=== PATIENT | female | born 1945 | race Caucasian/White ===

== ENCOUNTER 2022-02-18 13:09 | Inpatient (IN) | payer OTHER, MEDICAID, SELFPAY ==
[2022-02-18] VITALS (19 sets, daily range): BP systolic 80–156; BP diastolic 41–129; PULSE 80–142; RESP 19–25; TEMP 35–39.9; O2SAT 80–99; BMI 38.4
--- NOTE | ~2022-02-18 | CT_ITS ---
EXAMINATION: CT HEAD WITHOUT CONTRAST CLINICAL INFORMATION: Change in mental status. Rule out bleed or stroke COMPARISON: None TECHNIQUE: Imaging was performed from the skull base to vertex without intravenous administration of contrast. This CT examination was performed using dose optimization techniques as appropriate, variously including the following: *Automated exposure control *Adjustment of mA and/or kV according to patient size (this includes techniques or standardized protocols for targeted exams where dose is matched to indication/reason for exam; i.e. extremities or head) *Use of iterative reconstruction technique Total exam dose length product: 747 mGy-cm FINDINGS: No intra or extra-axial fluid collection, hemorrhage, or mass. No ventriculomegaly. No midline shift or herniation. Basal cisterns are patent. Betts-white matter differentiation is maintained. Small focal areas of encephalomalacia in the right lateral frontal lobe, right parietal and occipital lobes. Small remote lacunar infarct in the right caudate head.. Proportional prominence of the ventricles and sulcal spaces is consistent with mild volume loss. Patchy periventricular and deep white matter hypoattenuation is consistent with mild small vessel ischemic changes. No calvarial fracture or soft tissue abnormality. The mastoid air cells and visualized portions of the paranasal sinuses are well aerated. 1 cm high density lateral right scalp nodule is noted, nonspecific. Correlate with exam. Bilateral proptosis noted. Endotracheal tube in place. CT/CT head/brain wo IV con IMPRESSION: 1. No intracranial hemorrhage or acute edematous territorial infarct. 2. 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
--- NOTE | ~2022-02-18 | CT_ITS ---
EXAMINATION: CT CHEST, ABDOMEN AND PELVIS WITHOUT CONTRAST CLINICAL INFORMATION: Shortness of breath with respiratory failure. History of pneumonia. Fever. Rule out infectious process COMPARISON: None TECHNIQUE: Multidetector volumetric imaging was performed from the thoracic inlet through the pubic symphysis. Sagittal and coronal reformatted images were obtained on the technologist's workstation. Axial MIP volume rendering provided. This CT examination was performed using dose optimization techniques as appropriate, variously including the following: *Automated exposure control *Adjustment of mA and/or kV according to patient size (this includes techniques or standardized protocols for targeted exams where dose is matched to indication/reason for exam; i.e. extremities or head) *Use of iterative reconstruction technique DLP: 2877 mGy-cm FINDINGS: CHEST: Lungs: Quality degraded by motion artifact. Large area of airspace consolidation in the left lower lobe with air bronchograms. Some volume loss in the right lower lung with atelectasis in the right middle and lower lobe. No suspicious appearing pulmonary nodule-Limited assessment. Endotracheal tube tip terminates approximately 2.7 cm above the ivet. Central airways clear. Mediastinum: Mild cardiomegaly. Trace pericardial fluid. Coronary calcifications present. Occlusion device in the left atrial appendage. Ectatic ascending thoracic aorta measuring up to 4 cm in diameter. Prominent central pulmonary trunk measuring 3.3 cm in diameter. Small mediastinal lymph nodes. Borderline to mildly enlarged subcarinal lymph nodes, presumably reactive. Pericardium/Pleura: Trace right pleural effusion. Chest Wall/Axilla: Unremarkable. ABDOMEN/PELVIS: Liver, Gallbladder, Biliary Tree: Liver appears mildly enlarged with the right lobe measuring 18.1 cm in length. No appreciable liver lesion. No biliary ductal dilation. Status post cholecystectomy. Multiple surgical clips in place. Pancreas: Unremarkable. Spleen: Normal size. Small calcified splenic granulomas. Adrenal Glands: Unremarkable. Kidneys and Ureters: Left renal atrophy. Bilateral benign-appearing renal cysts, largest left upper pole measuring 3.2 cm in size, largest on the right side parapelvic in the mid pole measuring 4.9 cm in size. No hydronephrosis. Bladder: Decompressed with Bryant catheter. Gastrointestinal Tract: The small and large bowel are unremarkable. The appendix is unremarkable. No ascites or free air. Abdominal Wall: Prior mesh ventral abdominal wall hernia repair. No hernia identified. Lymphovascular Structures: Lymph nodes: No lymphadenopathy. Vascular: Small 3.1 cm infrarenal abdominal aortic aneurysm. Extensive vascular calcifications. Pelvic Viscera: Status post hysterectomy. Indeterminate 1.9 x 1.4 cm soft tissue nodule adjacent to the anterior right aspect of the vaginal cuff and upper ureter adjacent to the base of the bladder on series 23 image 85. OSSEOUS STRUCTURES: Mild chronic height loss of L5. No acute fracture or suspicious osseous lesion. Mild multilevel degenerative disc disease. CT/CT abdomen pelvis wo IV con IMPRESSION: 1. Left lower lobe airspace consolidation consistent with pneumonia. 2. Right middle and right lower lobe atelectasis and trace right pleural effusion. 3. Mild subcarinal lymphadenopathy, likely reactive. 4. No acute intra-abdominal process. 5. Small 3.1 cm infrarenal abdominal aortic aneurysm. Consider follow-up CT in 2-3 years. 6. Additional ancillary findings, as described.
--- NOTE | ~2022-02-18 | XR_ITS ---
EXAMINATION: XR CHEST CLINICAL INFORMATION: Reintubation. COMPARISON: Chest radiograph dated from 02/18/2022. TECHNIQUE: Frontal view of the chest was obtained. FINDINGS: The endotracheal tube terminates at 3 cm above the ivet. The enteric tube terminates outside of the field of view. Unchanged cardiomegaly. A left-sided PICC line projects over the proximal SVC. Central vasculature engorgement, bibasilar airspace opacities and bilateral pleural effusions are not convincingly changed when compared to yesterday's examination. No significant osseous abnormalities. XR/XR chest 1V IMPRESSION: Endotracheal tube terminates at 3 cm above the ivet. Stable bibasilar airspace opacities and pleural effusions.
--- NOTE | ~2022-02-18 | CT_ITS ---
EXAMINATION: CT CHEST WITHOUT CONTRAST CLINICAL INFORMATION: Hypoxia COMPARISON: Chest x-ray 02/23/2022 TECHNIQUE: Multidetector volumetric CT imaging of the chest was done. Axial MIP volume rendering provided. Sagittal and coronal reformatted images were obtained. This CT examination was performed using dose optimization techniques as appropriate, variously including the following: *Automated exposure control *Adjustment of mA and/or kV according to patient size (this includes techniques or standardized protocols for targeted exams where dose is matched to indication/reason for exam; i.e. extremities or head) *Use of iterative reconstruction technique DLP: 389 mGy-cm FINDINGS: STOCK TURNER: Hypoexpanded lungs. LUNGS: There are bilateral dependent consolidation/atelectasis. The upper lungs, right middle lobe and lingula are clear. MEDIASTINUM: Heart size is enlarged. There is a left atrial appendage occlusion device. No pericardial effusion seen. Ascending aorta measures 3.8 x 4.0 cm with its tip approximately 5 cm above the ivet. Tip of enteric tube is below diaphragm in the stomach. Left central venous catheter catheter tip is at brachiocephalic venous junction. CORONARY ARTERY CALCIFICATION: Mild coronary artery calcifications are present. PLEURA: There are small bilateral pleural effusions. No pleural calcification seen. AXILLA: No lymphadenopathy. UPPER ABDOMEN: Visualized liver, spleen, pancreas and bilateral adrenal glands unremarkable. OSSEOUS STRUCTURES: There is moderate spondylosis dorsal spine. No lytic or sclerotic process seen. CT/CT chest wo IV con IMPRESSION: Bilateral lower lobe dependent consolidation/atelectasis and bilateral small pleural effusions. Cardiomegaly with coronary artery calcifications. No pericardial effusion seen. Endotracheal tube, enteric tube and left central venous catheter are in satisfactory position. Fleischner guidelines were followed.
--- NOTE | ~2022-02-18 | XR_ITS ---
EXAMINATION: XR CHEST CLINICAL INFORMATION: Shortness of breath. Intubated. COMPARISON: None TECHNIQUE: Frontal view of the chest was obtained. FINDINGS: Endotracheal tube terminates 3.5 cm above the ivet. Cardiac leads overlie the chest. Lung volumes are low. Patchy airspace opacities are seen bilaterally at the mid to lower lungs. Possible small bilateral pleural effusions. No pneumothorax. The cardiomediastinal silhouette is unremarkable for this technique.. XR/XR chest 1V IMPRESSION: Endotracheal tube terminates 3.5 cm above the ivet. Bilateral patchy mid to lower lung opacities with small pleural effusions. This could be edema or associated with infectious/inflammatory process.
--- NOTE | ~2022-02-18 | XR_ITS ---
EXAMINATION: XR chest 1V CLINICAL INFORMATION: Hypoxia COMPARISON: None TECHNIQUE: Portable chest x-ray at 6:22 AM Tubes and lines: Endotracheal tube tip is about 5 cm from the ivet. Gastric tube passing below the diaphragm into the stomach. Left subclavian line tip projecting over the SVC/RA junction. Lungs and pleura: Pulmonary vascular congestion, bilateral opacification probably interstitial edema. There are subpulmonic pleural effusion, overall there has been no significant change. Heart and mediastinum: Heart is enlarged, mediastinum are widened exaggerated by AP technique.. Bones/soft tissue: Skeletal structures included are normal for patient's age. XR/XR chest 1V IMPRESSION: There has been no significant change. Pulmonary vascular congestion, bilateral opacification probably interstitial edema and bilateral subpulmonic pleural effusions. ET tube, gastric tube and central line in place properly positioned.
--- NOTE | ~2022-02-18 | XR_ITS ---
EXAMINATION: XR CHEST CLINICAL INFORMATION: Line placement COMPARISON: Previous chest x-ray and chest CT from earlier the same day TECHNIQUE: Frontal view of the chest was obtained. FINDINGS: There is an endotracheal tube with tip 4 cm above the ivet. There is a left central line with tip projecting over the proximal SVC. The cardiac silhouette is enlarged but stable. There is bilateral lower lung airspace disease, left greater than right. This does not appear appreciably changed from exam from earlier the same day. There is no significant pleural effusion. There is no pneumothorax. XR/XR chest 1V IMPRESSION: Left central line projects over proximal SVC. Endotracheal tube tip 4 cm above the ivet. There is enlargement of the cardiac silhouette and lower lung airspace disease, left greater than right.
--- NOTE | 2022-02-18 13:30 | ED_ITS ---
HPI - SOB/Dyspnea General Chief Complaint: Dyspnea Stated Complaint: respiratory distress Time Seen by Provider: 02/18/22 13:20 Source: family (Granddaughter, Cherrie) Mode of arrival: EMS Limitations: altered mental status History of Present Illness HPI Narrative: 76-year-old female who was brought to the emergency department for evaluation of shortness of breath and weakness. According to the patient's granddaughter, Cherrie, the patient was feeling weak 3 days prior and was unable to get off the toilet and required in the cyst from EMS. Last night at around 20:00 hours, the patient was talking to her daughter and she sounded short of breath on the phone. This morning, the patient's granddaughter Cherrie went to check on the patient. The patient was in bed and was incontinent of urine. The patient was very weak. The patient looked like she was having difficulty breathing therefore an ambulance was called. Paramedics report that the patient was lethargic and had a respiratory rate of 40. Initial O2 saturation was 80%. She was given a nebulizer treatment placed on oxygen. The paramedics state that during transport the patient had more difficulty breathing and they started bag- valve mask ventilation to assist her respirations. I evaluated the patient on the chief environmental commitment officer stretcher, the patient had very poor respiratory effort with very poor air flow on auscultation. I did talk to the granddaughter and she believes that the patient is a full code. The patient was brought in to a resuscitation room and intubated. MD elicited complaint: shortness of breath Pertinent past history: COPD Context: recent illness (Weakness 2 days ago, shortness of breath last) Timing: constant Severity: severe Exacerbating factors: nothing Relieving factors: nothing Known history of: COPD Treatment prior to arrival: oxygen and bronchodilator Related Data Allergies Allergy/AdvReac Type Severity Reaction Status Date / Time No Known Allergies Allergy Verified 02/18/22 13:32 Review of Systems Review of Systems: Yes unobtainable due to endotracheal tube and Unobtainable due to mental condition PMFSH Social History Social History Advance Directives: No Advance Directives Information Provided: No Physical Exam Vital Signs: Vital Signs: Last Vital Signs Temp 99.7 F 02/18/22 15:54 Pulse 113 H 02/18/22 15:54 Resp 25 H 02/18/22 15:54 BP 127/41 L 02/18/22 15:54 Pulse Ox 98 02/18/22 15:54 O2 Del Method 02/18/22 15:54 FiO2 60 02/18/22 13:41 BMI result Body Mass Index 38.4 Const: Other: Lethargic, obese, female patient, very poor respiratory effort, respirations being assisted by bag-valve mask ventilation by the paramedics. Patient was minimally responsive to painful stimuli HEENT: Head: Yes normal to inspection, Yes normocephalic and Yes atraumatic Ears: external ears normal General nose exam: Normal external nose present Face and sinus: Yes normal facial exam Mouth: Normal oral and palatal mucosa present Throat: Yes posterior oropharynx normal Eyes: General: appearance normal, both eyes and all related structures Neck: Neck: Yes normal visual inspection, Yes no lymphadenopathy, Yes trachea midline and Yes supple Chest: Chest palpation & inspection: normal inspection of the chest and normal palpation of entire chest wall Resp: Other: Poor respiratory effort, tachypneic diminished breath sounds bilaterally Cardio: Rate: regular rate Rhythm: regular rhythm Heart sounds: S1 normal heart sound present, S2 normal heart sound present and no murmurs GI: Inspection: Yes normal to inspection Palpation (GI): Soft to palpation, nontender and no guarding Auscultation: normal bowel sounds : General: Yes no CVA tenderness Back/Spine/Pelvis: Back: no CVA tenderness Skin: General skin exam: no rashes or lesions noted Neuro: Other: Patient is awake, minimally responsive to painful stimuli Extrem: General: Yes normal to inspection Course Course Course Narrative: 76-year-old female who presents emergency department for evaluation of weakness 2 days prior with shortness of breath which began last night. Patient was found in bed by her family, she is incontinent appear to be lethargic and short of breath. Paramedics reported the patient was tachypneic with a respiratory rate of 40, O2 saturation was 80% on room air, patient was placed on oxygen with improvement of her O2 saturation in the 90% range however during transport patient had diminished respiratory effort and paramedics assisted her respirations with a bag valve mask. When the patient arrived in the emergency department she had very poor respiratory effort, was lethargic. She was brought immediately into resuscitation room and intubated by me. I ordered CBC, CMP, CMP, BMP, CK, lipase, PT/INR, PTT, troponin, COVID-19, alcohol level, drug screen, influenza, lactic acid, blood cultures x2, arterial blood gas. Chest x-ray will also be obtained. EKG will be obtained as well. 1520: Laboratory evaluation: WBC elevated 16,900, anemia with an H&H of 10 and 34.6, lactate elevated 2.3. Troponin elevated 73. BNP elevated 222. ABG on ventilator settings respiratory 24, tidal volume 400, 60% FiO2, peep 5+ pH 7.34, pCO2 35, PO2 82. Chest x-ray interpreted by the radiologist as follows: IMPRESSION: Endotracheal tube terminates 3.5 cm above the ivet. ? Bilateral patchy mid to lower lung opacities with small pleural effusions. This could be edema or associated with infectious/inflammatory process. Dictated By: Floyd Nicholas MD 15 20: At this time, given the patient's elevated BNP, WBC and troponin, the patient's respiratory distress could be multifactorial including pneumonia verses CHF. I did order ceftriaxone 1 g IV and azithromycin 500 mg IV. I will repeat the patient's troponin and discuss admission with the covering aviation project engineer. The patient's systolic blood pressures have been in the low range, she did receive 1 L of normal saline. I will discuss fluid management and blood pressure management with the aviation project engineer as well. 1543: After discussion with the aviation project engineer, Dr. Kaufman, the patient's fluid will be stopped and the patient will be treated with Lasix 40 mg IV. Urinalysis will also be obtained. The patient will be managed in the intensive care unit once a bed is available. MDM - SOB/Dyspnea Medical Records Attestation: I reviewed the patient's medical records. Lab Data Attestation: I reviewed the patient's lab results. Result diagrams: 02/18/22 14:28 02/18/22 14:10 Labs: Lab Results 02/18/22 02/18/22 02/18/22 Range/Units 13:32 14:10 14:28 WBC 16.9 H (4.8-10.8) X10*3/uL RBC 3.57 L (4.20-5.50) X10*6/uL Hgb 10.3 L (12.0-16.0) g/dl Hct 34.6 L (37.0-47.0) % MCV 96.9 (80.0-98.0) fL MCH 28.9 (27.0-33.0) pg MCHC 29.8 L (31.0-35.0) g/dl RDW 15.1 (11.0-16.0) % Plt Count 220 (160-400) X10*3/uL MPV 11.2 (9.4-12.3) fL Immature Gran % (Auto) 1.1 H (0.0-0.4) % Neut % (Auto) 88.7 H (45-73) % Lymph % (Auto) 3.1 L (20-40) % [place] % (Auto) 6.9 (2-11) % Eos % (Auto) 0.0 (0-4) % Baso % (Auto) 0.2 (0-2) % Lymph # (Auto) 0.5 L (1.2-4.9) X10*3/uL [place] # (Auto) 1.2 (0.1-1.2) X10*3/uL Eos # (Auto) 0.0 (0.0-0.4) X10*3/uL Baso # (Auto) 0.0 (0.0-0.2) X10*3/uL Abs Immat Gran (auto) 0.18 H (0.00-0.03) X10*3/uL Absolute Neuts (auto) 15.0 H (2.0-8.3) x10*3/uL Absolute Nucleated RBC 0.000 (0.0-0.012) X10*3/uL Nucleated RBC % (auto) 0.0 (0.0-0.2) /100WBC O2 Saturation 94.0 % ABG pH at Pt Temp 7.34 L (7.35-7.45) ABG pCO2 at Pt Temp 35 (32-45) mmHg ABG pO2 at Pt Temp 82 L (83-108) mmHg ABG HCO3 19 L (22-26) mmol/L ABG Base Excess (Actual) -5.5 mmol/L Sodium 134 L (135-145) mmol/L Potassium 5.4 H (3.3-5.1) mmol/L Chloride 101 (96-108) mmol/L Carbon Dioxide 21 L (22-29) mmol/L Anion Gap 17 (12-20) BUN 43 H (9-16) mg/dL Creatinine 1.93 H (0.5-1.4) mg/dL Estim Creat Clear Calc 34.0 Estimated GFR 25 Random Glucose 193 H (60-115) mg/dL Lactic Acid (0.5-2.0) mmol/L Calcium 8.5 (8.4-10.2) mg/dL Total Bilirubin 1.0 (0.0-1.0) mg/dL AST 31 (5-31) U/L ALT 17 (0-31) U/L Alkaline Phosphatase 109 (39-117) U/L Total Creatine Kinase 91 (26-140) U/L Troponin I High Sens (<3.5-17.0) ng/L B-Natriuretic Peptide (<100) pg/mL Total Protein 6.1 L (6.5-8.0) g/dL Albumin 3.0 L (3.5-5.0) g/dL Lipase 8 (8-78) U/L Urine Color Urine Appearance Urine pH (5.0-9.0) Ur Specific [place] (1.005-1.025) Urine Protein (Neg-Trace) mg/dL Urine Glucose (UA) (Negative) mg/dL Urine Ketones (Negative) mg/dL Urine Blood (Negative) Urine Nitrite (Negative) Ur Leukocyte Esterase (Negative) Ethyl Alcohol < 10 mg/dL COVID-19 (JERRY) (Negative) COVID-19 Clin Com Influenza Type A (NISHANT) Influenza Type B (NISHANT) Influenza A & B Note 02/18/22 02/18/22 02/18/22 Range/Units 14:28 14:28 14:28 WBC (4.8-10.8) X10*3/uL RBC (4.20-5.50) X10*6/uL Hgb (12.0-16.0) g/dl Hct (37.0-47.0) % MCV (80.0-98.0) fL MCH (27.0-33.0) pg MCHC (31.0-35.0) g/dl RDW (11.0-16.0) % Plt Count (160-400) X10*3/uL MPV (9.4-12.3) fL Immature Gran % (Auto) (0.0-0.4) % Neut % (Auto) (45-73) % Lymph % (Auto) (20-40) % [place] % (Auto) (2-11) % Eos % (Auto) (0-4) % Baso % (Auto) (0-2) % Lymph # (Auto) (1.2-4.9) X10*3/uL [place] # (Auto) (0.1-1.2) X10*3/uL Eos # (Auto) (0.0-0.4) X10*3/uL Baso # (Auto) (0.0-0.2) X10*3/uL Abs Immat Gran (auto) (0.00-0.03) X10*3/uL Absolute Neuts (auto) (2.0-8.3) x10*3/uL Absolute Nucleated RBC (0.0-0.012) X10*3/uL Nucleated RBC % (auto) (0.0-0.2) /100WBC O2 Saturation % ABG pH at Pt Temp (7.35-7.45) ABG pCO2 at Pt Temp (32-45) mmHg ABG pO2 at Pt Temp (83-108) mmHg ABG HCO3 (22-26) mmol/L ABG Base Excess (Actual) mmol/L Sodium (135-145) mmol/L Potassium (3.3-5.1) mmol/L Chloride (96-108) mmol/L Carbon Dioxide (22-29) mmol/L Anion Gap (12-20) BUN (9-16) mg/dL Creatinine (0.5-1.4) mg/dL Estim Creat Clear Calc Estimated GFR Random Glucose (60-115) mg/dL Lactic Acid 2.3 H* (0.5-2.0) mmol/L Calcium (8.4-10.2) mg/dL Total Bilirubin (0.0-1.0) mg/dL AST (5-31) U/L ALT (0-31) U/L Alkaline Phosphatase (39-117) U/L Total Creatine Kinase (26-140) U/L Troponin I High Sens 73.0 H* (<3.5-17.0) ng/L B-Natriuretic Peptide 222 H (<100) pg/mL Total Protein (6.5-8.0) g/dL Albumin (3.5-5.0) g/dL Lipase (8-78) U/L Urine Color Urine Appearance Urine pH (5.0-9.0) Ur Specific [place] (1.005-1.025) Urine Protein (Neg-Trace) mg/dL Urine Glucose (UA) (Negative) mg/dL Urine Ketones (Negative) mg/dL Urine Blood (Negative) Urine Nitrite (Negative) Ur Leukocyte Esterase (Negative) Ethyl Alcohol mg/dL COVID-19 (JERRY) (Negative) COVID-19 Clin Com Influenza Type A (NISHANT) Cancelled Influenza Type B (NISHANT) Cancelled Influenza A & B Note Cancelled 02/18/22 02/18/22 02/18/22 Range/Units 15:05 15:52 15:57 WBC (4.8-10.8) X10*3/uL RBC (4.20-5.50) X10*6/uL Hgb (12.0-16.0) g/dl Hct (37.0-47.0) % MCV (80.0-98.0) fL MCH (27.0-33.0) pg MCHC (31.0-35.0) g/dl RDW (11.0-16.0) % Plt Count (160-400) X10*3/uL MPV (9.4-12.3) fL Immature Gran % (Auto) (0.0-0.4) % Neut % (Auto) (45-73) % Lymph % (Auto) (20-40) % [place] % (Auto) (2-11) % Eos % (Auto) (0-4) % Baso % (Auto) (0-2) % Lymph # (Auto) (1.2-4.9) X10*3/uL [place] # (Auto) (0.1-1.2) X10*3/uL Eos # (Auto) (0.0-0.4) X10*3/uL Baso # (Auto) (0.0-0.2) X10*3/uL Abs Immat Gran (auto) (0.00-0.03) X10*3/uL Absolute Neuts (auto) (2.0-8.3) x10*3/uL Absolute Nucleated RBC (0.0-0.012) X10*3/uL Nucleated RBC % (auto) (0.0-0.2) /100WBC O2 Saturation % ABG pH at Pt Temp (7.35-7.45) ABG pCO2 at Pt Temp (32-45) mmHg ABG pO2 at Pt Temp (83-108) mmHg ABG HCO3 (22-26) mmol/L ABG Base Excess (Actual) mmol/L Sodium (135-145) mmol/L Potassium (3.3-5.1) mmol/L Chloride (96-108) mmol/L Carbon Dioxide (22-29) mmol/L Anion Gap (12-20) BUN (9-16) mg/dL Creatinine (0.5-1.4) mg/dL Estim Creat Clear Calc Estimated GFR Random Glucose (60-115) mg/dL Lactic Acid (0.5-2.0) mmol/L Calcium (8.4-10.2) mg/dL Total Bilirubin (0.0-1.0) mg/dL AST (5-31) U/L ALT (0-31) U/L Alkaline Phosphatase (39-117) U/L Total Creatine Kinase (26-140) U/L Troponin I High Sens (<3.5-17.0) ng/L B-Natriuretic Peptide (<100) pg/mL Total Protein (6.5-8.0) g/dL Albumin (3.5-5.0) g/dL Lipase (8-78) U/L Urine Color Dark Yellow Urine Appearance Turbid Urine pH 5.0 (5.0-9.0) Ur Specific [place] 1.020 (1.005-1.025) Urine Protein 100 (2+) H (Neg-Trace) mg/dL Urine Glucose (UA) Negative (Negative) mg/dL Urine Ketones Negative (Negative) mg/dL Urine Blood Moderate (2+) H (Negative) Urine Nitrite Negative (Negative) Ur Leukocyte Esterase Large (3+) H (Negative) Ethyl Alcohol mg/dL COVID-19 (JERRY) Negative (Negative) COVID-19 Clin Com See Note Influenza Type A (NISHANT) Negative Influenza Type B (NISHANT) Negative Influenza A & B Note See Note ECG Data Attestation: I personally reviewed and interpreted this ECG as follows: Interpretation: 1514: Atrial fibrillation with a rapid ventricular rate of 108, normal QRS and QTC, Q-wave in lead 3, no ST segment elevation, no ST segment depression, no PVCs, there is no old EKG for comparison. Procedures Intubation Time out performed: No sedative: Etomidate Mg Given: 30 paralytic: Rocuronium Mg Given: 60 Assist Device Used: fiber optic device ([place] scope 4.0) ET Tube Size: 7 ET Tube Uncuffed: Yes Tube Secured Depth (cm): 23 Tube Secured Location: lips Tube Placement Confirmation: visualized tube passing through cords, equal breath sounds bilaterally and confirmation by capnometry Patient Tolerated Procedure: well Intubation Complications: none Additional Comments: On the 1st attempt, I was unable to pass a 7.5 endotracheal tube through the cords the cords were too tight on the 2nd attempt I was able to easily pass the 7.0 endotracheal tube through the cords. Critical Care Time Critical Care Time Total Critical Care Time: 80 Attestation: Critical Care: The patient was critically ill with a high probability of imminent or life threatening deterioration. I spent greater than 30 minutes of discontinuous time evaluating the patient,delivering critical care at the bedside, discussing and evaluating pertinent data with consultants. Critical care time does not include time spent performing separately billable procedures or teaching. Total time spent performing critical care was 80 minutes.
[2022-02-18 13:37] LABS: ABG Base Excess -5.5 mmol/L; ABG HCO3 19 mmol/L (22-26); ABG pCO2 35 mmHg (32-45); ABG pH 7.34 (7.35-7.45); ABG pO2 82 mmHg (83-108)
--- NOTE | 2022-02-18 13:37 | ECG_ITS ---
Test Reason : DYSPNEA Blood Pressure : / mmHG Vent. Rate : 108 BPM Atrial Rate : 000 BPM P-R Int : 000 ms QRS Dur : 082 ms QT Int : 312 ms P-R-T Axes : 000 012 042 degrees QTc Int : 418 ms Atrial fibrillation with rapid ventricular response Abnormal ECG No previous ECGs available Referred By: Allen Crum Electronically Signed By:DIANA VYAS
[2022-02-18] MEDS: Rocuronium Bromide 50 MG/5 ML VIAL 60 MG IVPUSH (13:54)
[2022-02-18] MEDS: Etomidate 20 MG/10 ML VIAL 30 MG IVPUSH (13:54)
[2022-02-18] MEDS: 0.9 % Sodium Chloride 1,000 ML 999 ML IV ×2 (13:54→15:20)
[2022-02-18 14:38] LABS: Basophils Percent Auto 0.2 % (0-2); Hematocrit 34.6 % (37.0-47.0); Hemoglobin 10.3 g/dl (12.0-16.0); Imm Gran Abs Auto 0.18 X10*3/uL (0.00-0.03); Imm Gran Pct Auto 1.1 % (0.0-0.4); Lymphocytes Absolute Auto 0.5 X10*3/uL (1.2-4.9); Lymphocytes Percent Auto 3.1 % (20-40); MANUAL DIFF FLAG NO; Mean Corpuscular HGB Conc 29.8 g/dl (31.0-35.0); Mean Corpuscular Hemoglobin 28.9 pg (27.0-33.0); Mean Corpuscular Volume 96.9 fL (80.0-98.0); Mean Platelet Volume 11.2 fL (9.4-12.3); Monocytes Absolute Auto 1.2 X10*3/uL (0.1-1.2); Monocytes Percent Auto 6.9 % (2-11); Neutrophils Percent Auto 88.7 % (45-73); Platelet Count 220 X10*3/uL (160-400); Red Blood Count 3.57 X10*6/uL (4.20-5.50); Red Cell Distribution Width 15.1 % (11.0-16.0); White Blood Count 16.9 X10*3/uL (4.8-10.8)
[2022-02-18] MEDS: Midazolam HCl/PF 2 MG/2 ML VIAL IVPUSH ×2 (14:39→15:18)
[2022-02-18] MEDS: fentaNYL citrate/PF 100 MCG/2 ML VIAL 50 MCG IVPUSH (14:39)
[2022-02-18 14:41] LABS: Alanine Aminotransferase 17 U/L (0-31); Alkaline Phosphatase 109 U/L (39-117); Anion Gap 17 (12-20); Aspartate Amino Transferase 31 U/L (5-31); Blood Urea Nitrogen 43 mg/dL (9-16); Calcium 8.5 mg/dL (8.4-10.2); Carbon Dioxide 21 mmol/L (22-29); Chloride 101 mmol/L (96-108); Estimated Glomerular Filt Rate 25; Ethanol < 10 mg/dL; Glucose Random 193 mg/dL (60-115); Lipase 8 U/L (8-78); Potassium 5.4 mmol/L (3.3-5.1); Sodium 134 mmol/L (135-145); Total Protein 6.1 g/dL (6.5-8.0)
[2022-02-18 15:02] LABS: Lactic Acid 2.3 mmol/L (0.5-2.0)
[2022-02-18 15:11] LABS: B Type Natriuretic Peptide 222 pg/mL (<100)
[2022-02-18] MEDS: cefTRIAXone sodium 1 GM in 0.9 % Sodium Chloride 50 ML IV (15:18)
[2022-02-18] MEDS: fentaNYL citrate/PF 100 MCG/2 ML VIAL IVPUSH (15:18)
[2022-02-18] MEDS: Furosemide 40 MG/4 ML VIAL IVPUSH (15:54)
[2022-02-18 15:59] LABS: COVID-19 Test Negative (Negative)
[2022-02-18 16:00] LABS: Appearance Urine Turbid; Color Urine Dark Yellow; Glucose Urine UA Negative (Negative); Leukocyte Esterase Urine Large (3+) (Negative); Nitrite Urine Negative (Negative); UMIC TRIGGER UACC YES; Urine Blood Moderate (2+) (Negative); Urine Ketones Negative (Negative); Urine Protein 100 (2+) mg/dL (Neg-Trace)
[2022-02-18] MEDS: Azithromycin 500 MG in 0.9 % Sodium Chloride 250 ML 125 MG IV (16:17)
--- NOTE | 2022-02-18 16:22 | PC.NURSE ---
MD aware of patients vital signs.
[2022-02-18 16:34] LABS: Reflex Lactate? Lactic Acid Added
[2022-02-18 16:38] LABS: IDNOW Serial# 16C4AD1C; Influenza A Negative (Negative); Influenza B2 Negative (Negative)
[2022-02-18 16:48] LABS: Bacteria Urine 4+ (None Seen); Granular Casts Urine Present; RBC Urine 0-2 /HPF (0-2); UACC Culture Trigger YES; WBC Urine >50 /HPF (0-5)
--- NOTE | 2022-02-18 17:24 | PC.NURSE ---
awaere of patients vital signs
--- NOTE | 2022-02-18 17:54 | PHA.MEDREC ---
MED REC COMPLETE, LIST FROM [facility], NO ISSUES Pharmacy Consult ? Medication Reconciliation Pharmacy has completed the medication reconciliation.
--- NOTE | 2022-02-18 18:45 | PC.NURSE ---
Patient arrived from ED via stretcher with ED RN at bedside. Patient unresponsive and on no sedation. HR maintaining low 100's AFib, SBP maintaining 80's, core temp 103.6. Unable to obtain sat with good pleth.Dr Kaufman notified and at bedside for line placement. CXR at bedside. Current BP 96/47. Handoff given to Tracey LI.
[2022-02-18 19:21] LABS: MANUAL DIFF FLAG NO
[2022-02-18 19:24] LABS: Basophils Percent Auto 0.1 % (0-2); Hematocrit 30.7 % (37.0-47.0); Hemoglobin 9.3 g/dl (12.0-16.0); Imm Gran Abs Auto 0.08 X10*3/uL (0.00-0.03); Imm Gran Pct Auto 0.5 % (0.0-0.4); Lymphocytes Absolute Auto 0.7 X10*3/uL (1.2-4.9); Lymphocytes Percent Auto 4.6 % (20-40); Mean Corpuscular HGB Conc 30.3 g/dl (31.0-35.0); Mean Corpuscular Hemoglobin 28.5 pg (27.0-33.0); Mean Corpuscular Volume 94.2 fL (80.0-98.0); Mean Platelet Volume 10.8 fL (9.4-12.3); Monocytes Absolute Auto 1.3 X10*3/uL (0.1-1.2); Monocytes Percent Auto 8.2 % (2-11); NRBC Pct Auto 0.1 /100WBC (0.0-0.2); Neutrophils Absolute Auto 13.5 x10*3/uL (2.0-8.3); Neutrophils Percent Auto 86.6 % (45-73); Platelet Count 204 X10*3/uL (160-400); Red Blood Count 3.26 X10*6/uL (4.20-5.50); Red Cell Distribution Width 14.9 % (11.0-16.0); White Blood Count 15.6 X10*3/uL (4.8-10.8)
[2022-02-18 19:27] LABS: VBG Base Excess 1.2 mmol/L; VBG HCO3 27 mmol/L (22-26); VBG pCO2 50 mmHg; VBG pH 7.33 (7.32-7.43); VBG pO2 38 mmHg
[2022-02-18 19:32] LABS: Venous Blood Gas Refer to POC result
[2022-02-18 19:37] LABS: ~Lactic Acid-LAB USE ONLY 1.5 mmol/L (0.5-2.0)
[2022-02-18 19:46] LABS: Partial Thromboplastin Time 26.4 SEC (26.0-36.4)
[2022-02-18 19:48] LABS: Amphetamine Screen Urine Not Detected (Not Detect); Barbiturates, Urine Not Detected (Not Detect); Benzodiazepines Screen Urine Not Detected (Not Detect); Cannabinoid Screen Urine Not Detected (Not Detect); Cocaine Screen Urine Not Detected (Not Detect); Fentanyl, urine Not Detected (Not Detect); Opiate Screen Urine Not Detected (Not Detect); Phencyclidine Screen Urine Not Detected (Not Detect)
[2022-02-18 19:48] LABS: Anion Gap 15 (12-20); Blood Urea Nitrogen 49 mg/dL (9-16); Calcium 8.1 mg/dL (8.4-10.2); Carbon Dioxide 26 mmol/L (22-29); Chloride 102 mmol/L (96-108); Creatinine Clr Calc Pharmacy 27.2; Estimated Glomerular Filt Rate 20; Glucose Random 161 mg/dL (60-115); Magnesium 2.3 mg/dL (1.6-2.6); Phosphorus 2.7 mg/dL (2.7-4.5); Potassium 5.4 mmol/L (3.3-5.1); Sodium 138 mmol/L (135-145)
[2022-02-18 19:51] LABS: B Type Natriuretic Peptide 230 pg/mL (<100); INTERNATIONAL NORM RATIO 1.1 (0.9-1.1); Prothrombin Time 13.2 SEC (10.0-13.1)
[2022-02-18] MEDS: Acetaminophen Supp 650 MG SUPP.RECT PR (19:51)
[2022-02-18 19:56] LABS: Troponin-I High Sensitivity 80.7 ng/L (<3.5-17.0)
[2022-02-18 20:01] LABS: Procalcitonin 3.13 ng/mL
--- NOTE | 2022-02-18 20:13 | PM.CCHP ---
History of Present Illness Date of Service: 02/18/22 <TAMMY Webster - Last Filed: 02/19/22 02:34> Attending physician on admission: nAdrea Kaufman <TAMMY Webster - Last Filed: 02/19/22 02:34> Chief Complaint: HYPOXIC RESPIRATORY FAILURE, CAP, SEPSIS <TAMMY Webster - Last Filed: 02/19/22 02:34> Source of history: ?Patient's daughter Fariba? Neal [phone] HCP and patient's record ? HPI: ?This is a 76-year-old female who has been residing for about a week at a local assisted living facility, has a history of COPD with 60 pack-year history of tobacco consumption who quit in October of last year) her foreign diplomat is Dr. Graves), history of CHF, oxygen dependent at 2 L at rest and 3 L with exertion, pneumonia, hypothyroidism, atrial fibrillation not on anticoagulation therapy who has a watch man device implanted by Dr. 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 ? The patient presented to the emergency room with complaints of 3 days worth of shortness of breath and weakness, the patient was noted to be incontinent of urine, at the assisted living facility, they increased her oxygen to 4 L, upon being checked by the daughter, she was noted the patient was struggling to breathe and decided to call EMS.? Patient arrived to the emergency room with noticeable difficulty breathing, lethargic with a respiratory rate 40 it had been placed on a bag valve mask ventilation to help her during transport.? Patient at the time had not been able to give a history in fact she had being difficult to arouse even with painful stimuli., breath sounds were diminished. ? Given the significant distress, lack of airway protection the patient was intubated.? Her workup was significant for white count of 16.9, H&H of 10 and 34 respectively, lactic acid of 2.3, troponin of 73, BNP of 222, her arterial blood gas showed pH of 7.34, pCO2 of 35, PO2 of 82.? The x-ray done at the time showed bilateral patchy in the mid to lower lung bernstein with small pleural effusions which could represent either edema versus infectious or inflammatory process.? Patient had been treated with 1 L of IV fluids given the concern for underlying CHF history as well as throwing her into CHF with fast volume resuscitation.? She did receive Rocephin and Zithromax.? Subsequently IV fluids have been stopped and the patient had been given Lasix 40 mg IV given the suspicion for underlying CHF.? The patient was transferred to the ICU where she was briefly seen by Dr. Hunter who placed a left CVL. Patient is COVID negative. ROS:? Unable to obtain ? Past Medical History: ?As above ? Past Surgical History: ? Family history:? Noncontributory ? Social History:? Currently living at assisted living facility, 60 pack-year history of tobacco consumption, quit October of last year, history of alcoholism during her 20s, quit 50 years ago. ? CODE STATUS: FULL CODE; Patient's daughter Fariba? Neal [phone] HCP ? Allergies: NKDA ? Home Medications: See Med Rec ? Sepsis physical exam done at 07:45 p.m. VS: ?118/51, 120, 20, 96% on the vent, temperature 103.8 degrees F Vent settings AC 400; 20; 10; 60% General:? No responsive, intubated Skin:? Intact, no lesions, edema, erythema, clubbing or cyanosis.? No ulcers. HEENT:? Head is normocephalic, atraumatic, pupils equal round reactive to light accommodation bilaterally.? Extraocular movements appear intact.? Buccal mucosa is moist, Neck is supple without lymphadenopathy. Cardiac:? Irregularly irregular 120 beats per minute, 4/6 left lower sternal border murmur, no rubs or gallops. Left CVL with clean, dry intact surroundings Pulmonary:? Bibasilar rhonchi left more than right, no crackles or wheezes. Abdomen:? Protuberant, positive bowel sounds in all 4 quadrants.? Soft Musculoskeletal:? Passive range of motion of upper lower extremities at the major joints reveal no cogwheeling, no Linette stiffness or crepitus. There is no leg edema or calf asymmetry. Neurologic:? As above, otherwise unable to assess Vascular:? 2+ pulses upper and lower extremities distally. Less than 2nd capillary refill of fingers and toes bilaterally upper and lower extremities. ? SIGNIFICANT LABORATORY DATA:? As above ? REVIEW OF IMAGES: Chest x-ray as above ? CHEST CT WITHOUT CONTRAST IMPRESSION: ? 1. Left lower lobe airspace consolidation consistent with pneumonia. 2. Right middle and right lower lobe atelectasis and trace right pleural effusion. 3. Mild subcarinal lymphadenopathy, likely reactive. 4. No acute intra-abdominal process. 5. Small 3.1 cm infrarenal abdominal aortic aneurysm. Consider follow-up CT in 2-3 years. 6. Additional ancillary findings, as described. ? HEAD CT 1. No intracranial hemorrhage or acute edematous territorial infarct. 2. 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 ? EKG REVIEW: ?ATRIAL FIBRILLATION WITH RAPID VENTRICULAR RESPONSE RATE 108 BEATS PER MINUTE.? NO ST ELEVATIONS, NO ST DEPRESSIONS.? QTC 312.? NO COMPARISON. ECHOCARDIOGRAPHY for hemodynamic monitorin. Wall thickness appears thicken 2. LV cavity size is normal, and LV fxn is hyperkinetic, with approximated EF 40-45%. 3. RV size looks enlarged on the parasternal and apical 4-chamber views (RV:LV cavity ratio 1.0), but looks normal on the subcostal view. 4. LA and RA not adequately assessed. 5. AoV not assessed. 6. MV appears normal with 2+ MR by color faraz. 7. TV appears normal with at least trace to 1+ TR by color faraz, with CWD jet measuring 3.2m/sec 8. IVC normal sized 1.4 cm and minimally contractile with inspiration. Estimated CVP of 8. ? ASSESSMENT : 1. Acute on chronic Hypoxic respiratory failure 2. Atrial fibrillation with rapid ventricular response 3. Acute sepsis due to community-acquired pneumonia and UTI 4. Normocytic anemia perhaps of chronic disease 5. Acute Metabolic acidosis with encephalopathy 6. Acute on chronic kidney disease 7. Hyperkalemia 8. Reactive troponin elevation, unlikely to represent ACS 9. Hypoalbuminemia 10. History of Diastolic CHF which may be perhaps superimposed to the above-mentioned infiltrates 11. History of COPD, O2 dependent, I do not think she has an exacerbation at this point. ? PLAN OF CARE: Admit to ICU, I's and O's, continue with ventilation support, will start her on Lopressor for rate control, the patient is on Levophed and propofol.? Based on my echo and CVP, I do not think the patient is hypervolemic, rather she appears to be hypovolemic therefore I will give her 1 L of additional IV fluid bolus for she is anuric.? I will then follow with is low IV hydration, total volume resuscitation at 30 mL per kilos cannot be given due to the patient's high risk of CHF. Repeat laboratories now including lactic acid. Will continue with Rocephin and Zithromax which will cover both the UTI and the urinary tract infection.? Repeat laboratories in the morning including venous blood gas. ?D50 and insulin was ordered to treat her hyperkalemia, will also give her a albuterol 10 mg treatment x1.? Albumin administration and nebulizers as needed. Will obtain sputum culture and Gram stain.? Will add TSH, free T3 and free T4 levels given the fast heart rate hypovolemia. ? GI PROPHYLAXIS: ?Protonix DVT PROPHYLAXIS: ?Heparin subQ t.i.d. Follow-up sepsis exam 0200 on 02/19/2022 VS: ?117/87, 119, 20, 96% on the vent, temperature 101.5 degrees F Vent settings AC 400; 20; 10; 60% General:? No responsive, intubated Skin:? Intact, no lesions, edema, erythema, clubbing or cyanosis.? No ulcers. Cardiac:? Irregularly irregular 110 beats per minute, unchanged murmur as above Pulmonary:? Bibasilar rhonchi left more than right, no crackles or wheezes. Musculoskeletal:? Passive range of motion of upper lower extremities at the major joints reveal no cogwheeling, no Linette stiffness or crepitus. There is no leg edema or calf asymmetry. Neurologic:? As above, otherwise unable to assess Vascular:? 2+ pulses upper and lower extremities distally. Less than 2nd capillary refill of fingers and toes bilaterally upper and lower extremities. Since initial exam on admission, the patient is improving, she did have a high-grade fever which was treated with Tylenol and I's. She has been given slow IV fluids, albumin, Lopressor for rate control and is finally producing urine approximately 45-60 cc in the past hour to 1 hour 1/2 which is an improvement. Will continue with the above-mentioned treatment and repeat labs in the morning as previously discussed. Patient is on beta-winsome home which will be resumed via OG tube. ? Critical care time used for critical evaluation of this patient, diagnosis, treatment and coordination of care, review her records and documentation TOTAL CRITICAL CARE TIME??150 ?MIN . discussion and coordination with consultants, completely separate from any procedures performed. Patient's care was discussed in detail with Dr. Kaufman.? He is aware of all the above as well as the plan of care for this patient. <TAMMY Webster - Last Filed: 02/19/22 02:34> [facility] Social History Social History: Social History Currently Displaying Signs/Symptoms of Drug Intoxication Withdrawal: No Advance Directives: No Advance Directives Information Provided: No service: No Current occupational status: retired <TAMMY Webster - Last Filed: 02/19/22 02:34> Meds Allergies/Adverse reactions: Allergies Allergy/AdvReac Type Severity Reaction Status Date / Time No Known Allergies Allergy Verified 02/18/22 13:32 <TAMMY Webster - Last Filed: 02/19/22 02:34> Active Medications: Current Medications Chlorhexidine Gluconate (Chlorhexidine Gluc Oral Rinse 15 Ml Mouthwash) 15 ml BUCCAL TID ISA Phenylephrine HCl 20 mg/ (Sodium Chloride) 252 mls @ 0 mls/hr IVCONT .Q0M ISA; Protocol Propofol (Diprivan) 1,000 mg in 100 mls @ 0 mls/hr IVCONT .Q0M ISA; Protocol Norepinephrine Bitartrate (Levophed) 8 mg in 250 mls @ 0 mls/hr IVCONT .Q0M ISA; Protocol Lactated Ringer's (Lr) 1,000 mls @ 999 mls/hr IV .Q1H1M ISA Stop: 02/18/22 21:15 Albumin Human (Kedbumin 25 %) 100 mls @ 100 mls/hr IV Q1H ISA Stop: 02/18/22 23:14 Omeprazole (Omeprazole 20 Mg/10 Ml Susp.Recon) 40 mg PO DAILY@0630 ISA <TAMMY Webster - Last Filed: 02/19/22 02:34> Home medications: Home Medications Medication Instructions Recorded Confirmed Last Taken Type albuterol sulfate 90 mcg/actuation 2 puff inhalation Q6H PRN 02/18/22 02/18/22 Unknown History aerosol inhaler (Ventolin HFA) Respiratory Distress aspirin 81 mg tablet,delayed 81 mg PO DAILY 02/18/22 02/18/22 Unknown History release atorvastatin 40 mg tablet 40 mg PO BEDTIME 02/18/22 02/18/22 Unknown History calcitriol 0.25 mcg capsule 0.25 mcg PO Q2D@1000 02/18/22 02/18/22 Unknown History clopidogrel 75 mg tablet 75 mg PO DAILY 02/18/22 02/18/22 Unknown History docusate sodium 100 mg capsule 100 mg PO BID 02/18/22 02/18/22 Unknown History ferrous sulfate 324 mg (65 mg 324 mg PO DAILY 02/18/22 02/18/22 Unknown History iron) tablet,delayed release fluticasone furoate 100 1 inh inhalation DAILY 02/18/22 02/18/22 Unknown History mcg-vilanterol 25 mcg/dose inhalation powder (Breo Ellipta) furosemide 40 mg tablet 40 mg PO DAILY 02/18/22 02/18/22 Unknown History gabapentin 300 mg capsule 300 mg PO DAILY 02/18/22 02/18/22 Unknown History gabapentin 600 mg tablet 600 mg PO BEDTIME 02/18/22 02/18/22 Unknown History levothyroxine 125 mcg tablet 125 mcg PO DAILY 02/18/22 02/18/22 Unknown History losartan 50 mg tablet 50 mg PO DAILY 02/18/22 02/18/22 Unknown History metoprolol tartrate 25 mg tablet 25 mg PO TID 02/18/22 02/18/22 Unknown History mirabegron 25 mg tablet,extended 25 mg PO DAILY 02/18/22 02/18/22 Unknown History release 24 hr (Myrbetriq) pantoprazole 40 mg tablet,delayed 40 mg PO DAILY 02/18/22 02/18/22 Unknown History release sennosides 8.6 mg tablet (senna) 17.2 mg PO BEDTIME 02/18/22 02/18/22 Unknown History tiotropium bromide 18 mcg capsule 1 cap inhalation DAILY 02/18/22 02/18/22 Unknown History with inhalation device (Spiriva with HandiHaler) <TAMMY Webster - Last Filed: 02/19/22 02:34> Physical Exam Vital Signs: Vital Signs: Last Vital Signs Temp 103.8 F H 02/18/22 19:55 Pulse 120 H 02/18/22 19:55 Resp 20 02/18/22 19:55 BP 118/51 L 02/18/22 19:55 Pulse Ox 96 02/18/22 19:55 O2 Del Method 02/18/22 19:55 FiO2 60 02/18/22 20:00 BMI result Body Mass Index 38.4 <TAMMY Webster - Last Filed: 02/19/22 02:34> Results Labs CBC and Chem 7: : 02/21/22 05:20 02/21/22 07:06 <TAMMY Webster - Last Filed: 02/19/22 02:34> Labs: Laboratory Results - last 24 hr 02/18/22 02/18/22 02/18/22 13:32 14:10 14:28 MCV 96.9 MCH 28.9 MCHC 29.8 L RDW 15.1 Plt Count 220 MPV 11.2 Immature Gran % (Auto) 1.1 H Neut % (Auto) 88.7 H Lymph % (Auto) 3.1 L [place] % (Auto) 6.9 Eos % (Auto) 0.0 Baso % (Auto) 0.2 Lymph # (Auto) 0.5 L [place] # (Auto) 1.2 Eos # (Auto) 0.0 Baso # (Auto) 0.0 Abs Immat Gran (auto) 0.18 H Absolute Neuts (auto) 15.0 H Absolute Nucleated RBC 0.000 Nucleated RBC % (auto) 0.0 PT INR APTT O2 Saturation 94.0 ABG pH at Pt Temp 7.34 L ABG pCO2 at Pt Temp 35 ABG pO2 at Pt Temp 82 L ABG HCO3 19 L ABG Base Excess (Actual) -5.5 VBG pH VBG pCO2 VBG pO2 VBG HCO3 VBG O2 Saturation VBG Base Excess Anion Gap 17 Estim Creat Clear Calc 34.0 Estimated GFR 25 Random Glucose 193 H Lactic Acid Lactic Acid F/U @ 2Hr Calcium 8.5 Phosphorus Magnesium Total Bilirubin 1.0 AST 31 ALT 17 Alkaline Phosphatase 109 Total Creatine Kinase 91 Troponin I High Sens B-Natriuretic Peptide Total Protein 6.1 L Albumin 3.0 L Lipase 8 Procalcitonin Urine Color Urine Appearance Urine pH Ur Specific Hiram Urine Protein Urine Glucose (UA) Urine Ketones Urine Blood Urine Nitrite Ur Leukocyte Esterase Urine RBC Urine WBC Ur Squamous Epith Cells Urine Bacteria Hyaline Casts Granular Casts Urine Opiates Screen Urine Fentanyl Screen Ur Barbiturates Screen Ur Phencyclidine Scrn Ur Amphetamines Screen U Benzodiazepines Scrn Urine Cocaine Screen U Marijuana (THC) Screen Ethyl Alcohol < 10 COVID-19 (JERRY) COVID-19 Clin Com Influenza Type A (NISHANT) Influenza Type B (NISHANT) Influenza A & B Note 02/18/22 02/18/22 02/18/22 14:28 14:28 14:28 MCV MCH MCHC RDW Plt Count MPV Immature Gran % (Auto) Neut % (Auto) Lymph % (Auto) [place] % (Auto) Eos % (Auto) Baso % (Auto) Lymph # (Auto) [place] # (Auto) Eos # (Auto) Baso # (Auto) Abs Immat Gran (auto) Absolute Neuts (auto) Absolute Nucleated RBC Nucleated RBC % (auto) PT INR APTT O2 Saturation ABG pH at Pt Temp ABG pCO2 at Pt Temp ABG pO2 at Pt Temp ABG HCO3 ABG Base Excess (Actual) VBG pH VBG pCO2 VBG pO2 VBG HCO3 VBG O2 Saturation VBG Base Excess Anion Gap Estim Creat Clear Calc Estimated GFR Random Glucose Lactic Acid 2.3 H* Lactic Acid F/U @ 2Hr Calcium Phosphorus Magnesium Total Bilirubin AST ALT Alkaline Phosphatase Total Creatine Kinase Troponin I High Sens 73.0 H* B-Natriuretic Peptide 222 H Total Protein Albumin Lipase Procalcitonin Urine Color Urine Appearance Urine pH Ur Specific Hiram Urine Protein Urine Glucose (UA) Urine Ketones Urine Blood Urine Nitrite Ur Leukocyte Esterase Urine RBC Urine WBC Ur Squamous Epith Cells Urine Bacteria Hyaline Casts Granular Casts Urine Opiates Screen Urine Fentanyl Screen Ur Barbiturates Screen Ur Phencyclidine Scrn Ur Amphetamines Screen U Benzodiazepines Scrn Urine Cocaine Screen U Marijuana (THC) Screen Ethyl Alcohol COVID-19 (JERRY) COVID-19 Clin Com Influenza Type A (NISHANT) Cancelled Influenza Type B (NISHANT) Cancelled Influenza A & B Note Cancelled 02/18/22 02/18/22 02/18/22 15:05 15:52 15:57 MCV MCH MCHC RDW Plt Count MPV Immature Gran % (Auto) Neut % (Auto) Lymph % (Auto) [place] % (Auto) Eos % (Auto) Baso % (Auto) Lymph # (Auto) [place] # (Auto) Eos # (Auto) Baso # (Auto) Abs Immat Gran (auto) Absolute Neuts (auto) Absolute Nucleated RBC Nucleated RBC % (auto) PT INR APTT O2 Saturation ABG pH at Pt Temp ABG pCO2 at Pt Temp ABG pO2 at Pt Temp ABG HCO3 ABG Base Excess (Actual) VBG pH VBG pCO2 VBG pO2 VBG HCO3 VBG O2 Saturation VBG Base Excess Anion Gap Estim Creat Clear Calc Estimated GFR Random Glucose Lactic Acid Lactic Acid F/U @ 2Hr Calcium Phosphorus Magnesium Total Bilirubin AST ALT Alkaline Phosphatase Total Creatine Kinase Troponin I High Sens B-Natriuretic Peptide Total Protein Albumin Lipase Procalcitonin Urine Color Dark Yellow Urine Appearance Turbid Urine pH 5.0 Ur Specific Hiram 1.020 Urine Protein 100 (2+) H Urine Glucose (UA) Negative Urine Ketones Negative Urine Blood Moderate (2+) H Urine Nitrite Negative Ur Leukocyte Esterase Large (3+) H Urine RBC 0-2 Urine WBC >50 H Ur Squamous Epith Cells 3-5 Urine Bacteria 4+ Hyaline Casts 6-10 Granular Casts Present Urine Opiates Screen Urine Fentanyl Screen Ur Barbiturates Screen Ur Phencyclidine Scrn Ur Amphetamines Screen U Benzodiazepines Scrn Urine Cocaine Screen U Marijuana (THC) Screen Ethyl Alcohol COVID-19 (JERRY) Negative COVID-19 Clin Com See Note Influenza Type A (NISHANT) Negative Influenza Type B (NISHANT) Negative Influenza A & B Note See Note 02/18/22 02/18/22 02/18/22 19:09 19:14 19:14 MCV MCH MCHC RDW Plt Count MPV Immature Gran % (Auto) Neut % (Auto) Lymph % (Auto) [place] % (Auto) Eos % (Auto) Baso % (Auto) Lymph # (Auto) [place] # (Auto) Eos # (Auto) Baso # (Auto) Abs Immat Gran (auto) Absolute Neuts (auto) Absolute Nucleated RBC Nucleated RBC % (auto) PT 13.2 H INR 1.1 APTT 26.4 O2 Saturation ABG pH at Pt Temp ABG pCO2 at Pt Temp ABG pO2 at Pt Temp ABG HCO3 ABG Base Excess (Actual) VBG pH VBG pCO2 VBG pO2 VBG HCO3 VBG O2 Saturation VBG Base Excess Anion Gap Estim Creat Clear Calc Estimated GFR Random Glucose Lactic Acid Lactic Acid F/U @ 2Hr Calcium Phosphorus Magnesium Total Bilirubin AST ALT Alkaline Phosphatase Total Creatine Kinase Troponin I High Sens 80.7 H* B-Natriuretic Peptide Total Protein Albumin Lipase Procalcitonin Urine Color Urine Appearance Urine pH Ur Specific [place] Urine Protein Urine Glucose (UA) Urine Ketones Urine Blood Urine Nitrite Ur Leukocyte Esterase Urine RBC Urine WBC Ur Squamous Epith Cells Urine Bacteria Hyaline Casts Granular Casts Urine Opiates Screen Not Detected Urine Fentanyl Screen Not Detected Ur Barbiturates Screen Not Detected Ur Phencyclidine Scrn Not Detected Ur Amphetamines Screen Not Detected U Benzodiazepines Scrn Not Detected Urine Cocaine Screen Not Detected U Marijuana (THC) Screen Not Detected Ethyl Alcohol COVID-19 (JERRY) COVID-19 Clin Com Influenza Type A (NISHANT) Influenza Type B (NISHANT) Influenza A & B Note 02/18/22 02/18/22 02/18/22 19:14 19:14 19:14 MCV 94.2 MCH 28.5 MCHC 30.3 L RDW 14.9 Plt Count 204 MPV 10.8 Immature Gran % (Auto) 0.5 H Neut % (Auto) 86.6 H Lymph % (Auto) 4.6 L [place] % (Auto) 8.2 Eos % (Auto) 0.0 Baso % (Auto) 0.1 Lymph # (Auto) 0.7 L [place] # (Auto) 1.3 H Eos # (Auto) 0.0 Baso # (Auto) 0.0 Abs Immat Gran (auto) 0.08 H Absolute Neuts (auto) 13.5 H Absolute Nucleated RBC 0.020 H Nucleated RBC % (auto) 0.1 PT INR APTT O2 Saturation ABG pH at Pt Temp ABG pCO2 at Pt Temp ABG pO2 at Pt Temp ABG HCO3 ABG Base Excess (Actual) VBG pH VBG pCO2 VBG pO2 VBG HCO3 VBG O2 Saturation VBG Base Excess Anion Gap 15 Estim Creat Clear Calc 27.2 Estimated GFR 20 Random Glucose 161 H Lactic Acid Lactic Acid F/U @ 2Hr 1.5 Calcium 8.1 L Phosphorus 2.7 Magnesium 2.3 Total Bilirubin AST ALT Alkaline Phosphatase Total Creatine Kinase Troponin I High Sens B-Natriuretic Peptide Total Protein Albumin Lipase Procalcitonin Urine Color Urine Appearance Urine pH Ur Specific [place]am Urine Protein Urine Glucose (UA) Urine Ketones Urine Blood Urine Nitrite Ur Leukocyte Esterase Urine RBC Urine WBC Ur Squamous Epith Cells Urine Bacteria Hyaline Casts Granular Casts Urine Opiates Screen Urine Fentanyl Screen Ur Barbiturates Screen Ur Phencyclidine Scrn Ur Amphetamines Screen U Benzodiazepines Scrn Urine Cocaine Screen U Marijuana (THC) Screen Ethyl Alcohol COVID-19 (JERRY) COVID-19 Clin Com Influenza Type A (NISHANT) Influenza Type B (NISHANT) Influenza A & B Note 02/18/22 02/18/22 02/18/22 19:14 19:14 19:20 MCV MCH MCHC RDW Plt Count MPV Immature Gran % (Auto) Neut % (Auto) Lymph % (Auto) [place] % (Auto) Eos % (Auto) Baso % (Auto) Lymph # (Auto) [place] # (Auto) Eos # (Auto) Baso # (Auto) Abs Immat Gran (auto) Absolute Neuts (auto) Absolute Nucleated RBC Nucleated RBC % (auto) PT INR APTT O2 Saturation ABG pH at Pt Temp ABG pCO2 at Pt Temp ABG pO2 at Pt Temp ABG HCO3 ABG Base Excess (Actual) VBG pH 7.33 VBG pCO2 50 VBG pO2 38 VBG HCO3 27 H VBG O2 Saturation 56.0 VBG Base Excess 1.2 Anion Gap Estim Creat Clear Calc Estimated GFR Random Glucose Lactic Acid Lactic Acid F/U @ 2Hr Calcium Phosphorus Magnesium Total Bilirubin AST ALT Alkaline Phosphatase Total Creatine Kinase Troponin I High Sens B-Natriuretic Peptide 230 H Total Protein Albumin Lipase Procalcitonin 3.13 Urine Color Urine Appearance Urine pH Ur Specific [place] Urine Protein Urine Glucose (UA) Urine Ketones Urine Blood Urine Nitrite Ur Leukocyte Esterase Urine RBC Urine WBC Ur Squamous Epith Cells Urine Bacteria Hyaline Casts Granular Casts Urine Opiates Screen Urine Fentanyl Screen Ur Barbiturates Screen Ur Phencyclidine Scrn Ur Amphetamines Screen U Benzodiazepines Scrn Urine Cocaine Screen U Marijuana (THC) Screen Ethyl Alcohol COVID-19 (JERRY) COVID-19 Clin Com Influenza Type A (NISHANT) Influenza Type B (NISHANT) Influenza A & B Note <TAMMY Webster - Last Filed: 02/19/22 02:34> Imaging Radiologist's Impressions: Impressions Chest X-Ray 02/18/22 14:58 IMPRESSION: Endotracheal tube terminates 3.5 cm above the ivet. Bilateral patchy mid to lower lung opacities with small pleural effusions. This could be edema or associated with infectious/inflammatory process. Abdomen/Pelvis CT 02/18/22 16:31 IMPRESSION: 1. Left lower lobe airspace consolidation consistent with pneumonia. 2. Right middle and right lower lobe atelectasis and trace right pleural effusion. 3. Mild subcarinal lymphadenopathy, likely reactive. 4. No acute intra-abdominal process. 5. Small 3.1 cm infrarenal abdominal aortic aneurysm. Consider follow-up CT in 2-3 years. 6. Additional ancillary findings, as described. Chest CT 02/18/22 16:31 IMPRESSION: 1. Left lower lobe airspace consolidation consistent with pneumonia. 2. Right middle and right lower lobe atelectasis and trace right pleural effusion. 3. Mild subcarinal lymphadenopathy, likely reactive. 4. No acute intra-abdominal process. 5. Small 3.1 cm infrarenal abdominal aortic aneurysm. Consider follow-up CT in 2-3 years. 6. Additional ancillary findings, as described. Head CT 02/18/22 16:31 IMPRESSION: 1. No intracranial hemorrhage or acute edematous territorial infarct. 2. 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 Chest X-Ray 02/18/22 18:58 IMPRESSION: Left central line projects over proximal SVC. Endotracheal tube tip 4 cm above the ivet. There is enlargement of the cardiac silhouette and lower lung airspace disease, left greater than right. <TAMMY Webster - Last Filed: 02/19/22 02:34> Critical Care Time Critical Care Time (minutes): 150 <Andrea Kaufman MD - Last Filed: 02/21/22 09:45>
[2022-02-18] MEDS: Lactated Ringers 1,000 ML 999 ML IV (20:20)
[2022-02-18 20:27] LABS: Glucose, Whole Blood 160 mg/dL (60-115)
[2022-02-18] MEDS: propofoL 1,000 MG/100 ML VIAL 14.15 MG IVCONT (20:29)
[2022-02-18] MEDS: Insulin Regular, Human 100 UNIT/ML 3 ML VIAL IVPUSH (20:41)
[2022-02-18] MEDS: Dextrose 50 % 25 GM/50 ML SYRINGE IVPUSH (20:41)
[2022-02-18 21:41] LABS: Glucose, Whole Blood 161 mg/dL (60-115)
[2022-02-18] MEDS: Albumin Human 25 % 100 ML IV ×2 (21:59→23:57)
[2022-02-18] MEDS: Chlorhexidine Gluc Oral Rinse 15 ML MOUTHWASH BUCCAL (21:59)
[2022-02-18] MEDS: Metoprolol Tartrate 5 MG/5 ML VIAL IVPUSH (22:31)
[2022-02-19] VITALS (41 sets, daily range): BP systolic 70–154; BP diastolic 41–107; PULSE 101–146; RESP 18–23; TEMP 34.6–38.7; O2SAT 88–99; BMI 40.9
[2022-02-19] MEDS: Albumin Human 25 % 100 ML IV (01:23)
[2022-02-19] MEDS: propofoL 1,000 MG/100 ML VIAL 14.15 MG IVCONT ×4 (01:23→19:37)
[2022-02-19] MEDS: Metoprolol Tartrate 5 MG in 0.9 % Sodium Chloride 50 ML 230 MG IV (01:46)
[2022-02-19] MEDS: Dextrose 5 % and 0.9 % NaCl 1,000 ML 100 ML IVCONT ×2 (01:55→11:06)
--- NOTE | 2022-02-19 03:08 | PC.NURSE ---
ASSUMED CARE OF PT AT 1900. DR MARTELL COMPLETING TRIPLE LUMEN INSERTION AT THAT TIME. PCXR DONE TO CONFIRM PLACEMENT. LABS DRAWN AND REVIEWED BY ISIDRO PATE PA-C. PT STARTED ON PROPOFOL FOR SEDATION AND CURRENTLY AT 20 MCG/KG/MIN. LEVOPHED REQUIED FOR LOW BP WITH GOOD EFFECT AT 0.1 MCG/KG/MIN. PT WAS GIVEN 1L LACTATED RINGERS AND THEN DRIP STARTED D5NS AT 100 ML/HR AND 3 BOTTLES OF ALBUMIN 100 ML. U/O WAS 1-10 ML/HR AND HAS INCREASED SLIGHTLY TO 30 ML/HR. PT IS RESPONSIVE TO NOXIOUS STIMULI AND ALONZO. PEARRLA. NO RESP DISTRESS ON AC VENT SETTINGS. LOWER LEGS WERE SLIGHTLY MOTTLED BEFORE LEVOPHED AND BP WAS LOW 81/54. BP IMPROVED QUICKLY ON LEVO AND MOTTLING DISAPPEARED. DAUGHTER VENU WAS CALLED AND UPDATE GIVEN TO HER. ISIDRO ERVIN AT BEDSIDE TO DO QUICK LOOK ECHO TO HELP DETERMINE FLUID STATUS. ATTEMPTED TO GET CVP BUT NOT ABLE TO OBTAIN DUE TO POOR WAVEFORM. BROWN PORT OF TLC USED BUT THEN SWITCHED TO WHITE PORT AND STILL NOT A GOOD WAVEFORM. RHYTHM IS AFIB AND HEART RATE HAS BEEN 110'S-120'S; WAS 130-150 AND LOPRESSOR 5 MG IV GIVEN X2.
[2022-02-19] MEDS: Acetaminophen Oral Liquid 650 MG/20.3 ML SOLUTION 975 MG PO ×3 (04:07→17:47)
[2022-02-19] MEDS: Heparin Sodium,Porcine 5,000 UNIT/ML VIAL 5000 UNIT SUBCUT ×3 (05:05→21:19)
[2022-02-19 05:35] LABS: Glucose, Whole Blood 229 mg/dL (60-115)
[2022-02-19 05:38] LABS: VBG Base Excess -5.4 mmol/L; VBG HCO3 18 mmol/L (22-26); VBG pCO2 32 mmHg; VBG pH 7.37 (7.32-7.43); VBG pO2 39 mmHg
[2022-02-19 05:43] LABS: Venous Blood Gas Refer to POC result
[2022-02-19 06:07] LABS: MANUAL DIFF FLAG NO
[2022-02-19] MEDS: dilTIAZem HCL 50 MG/10 ML VIAL 10 MG IVPUSH (06:07)
[2022-02-19] MEDS: Metoprolol Tartrate 25 MG TABLET PO ×3 (06:16→14:18)
[2022-02-19 06:17] LABS: Basophils Percent Auto 0.2 % (0-2); Eosinophils Percent Auto 0.1 % (0-4); Hematocrit 29.6 % (37.0-47.0); Hemoglobin 9.1 g/dl (12.0-16.0); Imm Gran Abs Auto 0.14 X10*3/uL (0.00-0.03); Imm Gran Pct Auto 0.9 % (0.0-0.4); Lymphocytes Absolute Auto 0.7 X10*3/uL (1.2-4.9); Lymphocytes Percent Auto 4.4 % (20-40); Mean Corpuscular HGB Conc 30.7 g/dl (31.0-35.0); Mean Corpuscular Volume 94.3 fL (80.0-98.0); Mean Platelet Volume 11.7 fL (9.4-12.3); Monocytes Absolute Auto 0.9 X10*3/uL (0.1-1.2); Monocytes Percent Auto 5.8 % (2-11); NRBC Pct Auto 0.1 /100WBC (0.0-0.2); Neutrophils Percent Auto 88.6 % (45-73); Platelet Count 211 X10*3/uL (160-400); Red Blood Count 3.14 X10*6/uL (4.20-5.50); Red Cell Distribution Width 15.2 % (11.0-16.0); White Blood Count 15.8 X10*3/uL (4.8-10.8)
[2022-02-19] MEDS: Insulin Lispro 100 UNIT/ML 3 ML VIAL SUBCUT ×2 (06:20→12:38)
[2022-02-19 06:33] LABS: B Type Natriuretic Peptide 143 pg/mL (<100)
[2022-02-19] MEDS: Sodium Bicarbonate 8.4% 50 MEQ/50 ML SYRINGE 100 MEQ IVPUSH (06:34)
[2022-02-19 06:36] LABS: Alanine Aminotransferase 25 U/L (0-31); Albumin Level 3.3 g/dL (3.5-5.0); Alkaline Phosphatase 111 U/L (39-117); Anion Gap 18 (12-20); Aspartate Amino Transferase 63 U/L (5-31); Bilirubin Total 1.1 mg/dL (0.0-1.0); Blood Urea Nitrogen 53 mg/dL (9-16); Calcium 7.8 mg/dL (8.4-10.2); Carbon Dioxide 23 mmol/L (22-29); Chloride 101 mmol/L (96-108); Creatinine Clr Calc Pharmacy 23.7; Estimated Glomerular Filt Rate 16; Glucose Random 260 mg/dL (60-115); Phosphorus 2.7 mg/dL (2.7-4.5); Potassium 4.7 mmol/L (3.3-5.1); Sodium 137 mmol/L (135-145); Total Protein 5.4 g/dL (6.5-8.0)
[2022-02-19 06:49] LABS: C Reactive Protein 35.96 mg/dL (< or = 0.50)
[2022-02-19] MEDS: dilTIAZem HCL 125 MG in 0.9 % Sodium Chloride 100 ML IVCONT (06:49)
--- NOTE | 2022-02-19 07:00 | CA_ITS ---
Transthoracic Echocardiogram Patient (Last, First, Middle): Shanon Stewart W Gender: Female Date of : 1945 Age: 76 Procedure Date: 02/19/2022 Procedure Type: Transthoracic Echocardiogram Location: ICU Height: 175.26 cm Weight: 125.65 kg BSA: 2.37 m2 Heart Rate: bpm BP: 125 / 77 mmHg Cooper Apprentice: DEEPTI Referring MD: Andrea Kaufman MD Powderman: Enmanuel Parikh MD Symptoms: refractory hypotension Study Quality: Technically Difficult due to obesity ECG Rhythm: Atrial Fibrillation Conclusions: - 1. Technically limited study due to off axis views and poor endocardial definition 2. LV systolic function appears to be normal with LVEF of 55-60% 3. RV is not well visualized and with off axis views may appears slightly dilated 3. LA is mildly dilated 4. Cardiac valvular Dopplers within normal limits with poor visualization of cardiac valves 5. IVC moderately dilated without collapse but patient is on mechanical ventilation Findings Procedure Information Contrast agent, definity, is being given per protocol without apparent complications. Left Ventricle The left ventricle was not well visualized. Normal left ventricular cavity size. There is mildly increased left ventricular wall thickness. The left ventricular systolic function is normal. The visually estimated ejection fraction is between 55-60%. Diastolic function is indeterminate on the basis of available data. Right Ventricle The right ventricle was not well visualized. Mildly increased right ventricular cavity size. Atria The left atrium is mildly dilated. Interatrial shunt cannot be excluded. The right atrium was not well visualized. Aortic Valve The aortic valve was not well visualized. There is no aortic valve stenosis. There is no aortic valve regurgitation. Mitral Valve The mitral valve was not well visualized. There is trace mitral valve regurgitation. There is no mitral valve stenosis. Pulmonic Valve The pulmonic valve was not well visualized. Tricuspid Valve The tricuspid valve was not well visualized. Tricuspid regurgitation envelope is inadequate for calculation of right ventricular systolic pressure. Great Vessels The aorta was not well visualized. The pulmonary artery was not well visualized. Venous The inferior vena cava is moderately dilated and does not collapse with inspiration. Pericardium/Pleural The pericardium was not well visualized. Prior Study Comparison No prior study available for comparison. Measurements 2D Linear Measurements IVSd: 1.20 0.6-0.9/0.6-1.0 cm LVIDd: 4.97 3.9-5.3/4.2-5.9 cm LVIDd Index: 2.10 2.4-3.2/2.2-3.1 cm/m2 LVIDs: 3.71 2.0-3.6 cm LVPWd: 1.28 0.7-1.1 cm Ao Root: 3.20 2.1-3.5 cm LA Diam: 5.80 2.7-3.8/3.0-4.0 cm LAIDs Index: 2.45 1.5-2.3 cm/m2 LV Mass: 302.36 67-162/88-224 g LV Mass Index: 127.58 43-95/49-115 g/m2 LVOT Diam: 2.00 3.0+(-)1.3 cm 2D Systolic Function EF 4C: 58.10 >55% EF 2C: 61.90 >55% EF BiP: 60.70 >55% Mitral Valve MV Pk E: 1.04 MV Decel Time: 183.00 E'Lateral: 7.94 E'Medial: 6.74 E/E' Med: 15.40 E/E' Lat: 13.10 PHT: 54.00 MVA PHT: 4.07 Decel Haywood: 5.67 Aortic Valve AoV Pk Jovany: 1.26 AoV Mn Jovany: 0.83 AoV VTI: 0.25 AoV Pk Grad: 6.00 Aov Mn Grad: 4.00 KATY Cont.VTI: 1.72 LVOT LVOT Pk Jovany: 0.78 LVOT Mn Jovany: 0.47 LVOT VTI: 0.14 LVOT Pk Grad: 2.00 LVOT Mn Grad: 1.00 LVOT Diam: 2.00 LVOT Area: 3.14 Diastolic Function MV Pk E: 1.04 E'Medial: 6.74 E/E' Med: 15.40 E' Laterial: 7.94 E/E' Lat: 13.10 Tricuspid Valve TR Pk Jovany: 2.80 TR Pk Grad: 31.00 Great Vessels Aorta Ao Root-2D: 3.20 2.0-3.7 cm Ao Asc: 3.10 2.1-3.4 cm Pulmonary Valve PV Pk Jovany: 1.06 Peak PV Grad: 4.00 Updated in Other Vendor System with Status of Final Enmanuel Parikh MD electronically signed on 02/19/2022 3:55:45 PM with status of Final
[2022-02-19] MEDS: Chlorhexidine Gluc Oral Rinse 15 ML MOUTHWASH BUCCAL ×3 (08:07→19:50)
--- NOTE | 2022-02-19 09:54 | MHC.CM.PN ---
Addendum entered by Doreen Haile RN 02/19/22 09:59: PATIENT NOW IN [facility]ISTED [facility]ICATION ([facility]) PROGRAM PATIENT IS NO LONGER INDEPENDENT WITH HER MEDICATIONS. Original Note: PATIENT UNABLE TO PARTICIPATE IN CONVERSATION. CALL TO HCP/DAUGHTER SUMANTH @ [phone] PATIENT IS RECENT MOVE INTO [facility] ASSIST[facility] FACILITY HER PCP IS CURRENTLY AT [facility] BUT PLAN IS/WAS FOR PATIENT TO TRANSFER TO [facility]. SUMANTH GIVES THIS HYDROELECTRIC COMPONENT MACHINIST PERMISSION TO CALL AND SPEAK WITH [facility] DIRECTOR JAYASHREE [phone] CALL TO JAYASHREE PATIENT USES A [facility] HAS RN (WHICH IS JAYASHREE) TRANSPORTATION PROGRAM ALSO AVAILABLE THROUGH FACILITY AND [facility]. IMM 02/19 IN ROOM FOR SUMANTH TO SURVEY AND MAPPING TECHNICIAN WHEN SHE VISITS AGAIN
[2022-02-19 12:15] LABS: Glucose, Whole Blood 221 mg/dL (60-115)
--- NOTE | 2022-02-19 13:14 | MHC.CLN ---
RE: CONSULT PT IS INTUBATED AND SEDATED PT IS CURRENTLY NPO IF TF NEEDED; RECOMMEND PROMOTE AT MAX GOAL RATE 45ML/HR WITH 120ML FREE WATER FLUSHES Q 6 HRS TO PROVIDE 1080KCALS (1453KCALS WITH SEDATION; 25KCALS/KG BASED ON IBW), 67.5G PROTEIN (1.1G/KG), 1386ML TOTAL WATER FROM FORMULA AND FLUSHES (24ML/KG BASED ON IBW) MONITOR TOLERANCE, RESIDUALS AND LYTES SEE ALSO FULL CLINICAL NUTRITION ASSESSMENT
[2022-02-19] MEDS: Azithromycin 500 MG in 0.9 % Sodium Chloride 250 ML 125 MG IV (14:31)
[2022-02-19] MEDS: cefTRIAXone sodium 1 GM in 0.9 % Sodium Chloride 50 ML IV (15:00)
--- NOTE | 2022-02-19 16:18 | PM.CCPN ---
Subjective Subjective Date of Service: 02/19/22 Interval History: Mrs. Stewart was admitted to the ICU yesterday with acute respiratory failure. The patient is a 76-year-old female w PMHx of supermorbid obesity, COPD with 60 pack-year smoking history, quit in October of last year, oxygen dependent 2 L at rest and 3 L with exertion; , pneumonia, CHF, hypothyroidism, atrial fibrillation not on anticoagulation, CKD stage 3, peripheral neuropathy, hypertension, GERD, leg edema. Part of history was obtained from a [facility] discharge note of 10/28/21 for hospitalization for acute on chronic respiratory failure with HFpEF.? Admitting serum bicarb was 32 (so I?m not sure if she?s a CO2 retainer or not.)? Chest CTA at that time was negative for PE.? Duplex scan negative for DVT.? Creatinine had bumped to 1.65 prior to discharge, thought secondary to a dose of IV contrast. I talked with Dr. Eastman (one of her release engineer's) today.? In 2020, she presented to [facility] with a rectus sheath hematoma, secondary to anticoagulation for atrial fibrillation.? At that time, she was taken off anticoagulation, and on 09/10/21 a Watchman device was inserted by Dr. Agustin.? Since then, she has had at least 2 TEEs for follow-up.? Last DANGELO was in September of 2021 which showed that the left atrial appendage was occluded.? LV ejection fraction was 60%, RV was normal size with normal function.? There was 1+ MR, 1+ TR, and the tricuspid CWD gradient was 26 mm.? Creatinine was 1.1. Social Hx:? The patient was living with her up until he in 2009.? Since then, the patient has been living with a variety of different family members, in different family situations.? For the last year, the patient was living with her daughter Haley De Jesus ([phone]) who is the healthcare proxy.? According to Haley, who I spoke with in the ICU today and on the phone later today at length, the patient has had long-term problems with hoarding, impulsiveness, poor judgment, lack of self-care (e.g. not bathing for a year), compulsive eating, bingeing (eg. eating 60 lbs of sugar over a weekend), etc.? She?s put on 30 lbs in the last year.? She leaves the fire on the stove all night.? She hasn?t yet been diagnosed with dementia by the any of the physicians she has seen. The situation at Haley?s house finally got to be too much, and too unsafe, therefore Haley moved her mother into [facility] about a week ago. HISTORY OF PRESENT ILLNESS:? The patient was BIBA to the ED yesterday w c/o of SOB and weakness x 3 days, incontinence of urine.? [facility] staff increased her oxygen to 4 L.? The patient?s daughter saw her yesterday, noted she was struggling to breathe, so called EMS. On arrival to the ED, the patient was in obvious respiratory distress.? She was intubated immediately.? She was afebrile and normotensive.? Workup significant for white count 16.9, Hgb 10, lactic acid of 2.3, troponin of 73 and flat, BNP of 222.? ABG 7.34/35/82/-5.? CXR showed ? enlarged right heart, bilateral patchy mid to lower lung opacities with small pleural effusions.? COVID negative.? U/A showed gross infection. The patient was given 1 L of IV fluids, Rocephin, and Zithromax.? The patient was then given Lasix 40 mg because of suspicion for CHF.? Noncontrast chest CT showed a small posterior lower lobe area of consolidation.? Head CT showed small chronic infarcts in the right frontal, parietal and occipital lobes and chronic lacunar infarct in the right caudate head. The patient was then transferred to the ICU where a central venous line was immediately placed.? In the ICU, the patient spiked a temperature to > 103.5.? She became hypotensive, but her repeat lactate was normal. The patient was treated for acute sepsis due to community-acquired pneumonia and UTI.? She was given ceftriaxone and Zithromax.? She was given diltiazem drip for AFib with RVR. ECHO done this morning, interpreted by me, showed normal LV cavity size and fxn, EF 55-60%.? RV slightly dilated.? No AI or .? Trace MR.? 2+ TR with CWD measuring 3.0 m/sec (gradient 36mm).? IVC measured 2.5 cm.? RVSP 51mm. This afternoon, the patient is sedated on propofol 20ug.? HR 102, Afib, on diltiazem 12.5 mg.? BP 124/76 on Levophed 0.16ug.? Also on D5NS 100cc/hr.? On AC 20/400/50%/+10, RR 24, Ve 9.4L, PIP 36, ETCO2 25, Sat 89%.? CVBG 7.35/40/-2.? Temp 100.9?.? No JVD.? Chest is CTA with normal exp phase. ?Heart tones soft, I heard no murmur or gallops.? Abdomen is obese and benign.? She has no peripheral or central edema. LABORATORY DATA:? Below.? Notably, BUN/creatinine up to 53/2.8, bicarb 23, potassium 4.7, phosphorus still only 2.7, CRP 35, BNP down to 143. CXR clearly shows heart failure with bilat pleural effusions. IMPRESSION: 1. Acute on chronic hypoxemic respiratory failure.? Unclear etiology:? Heart failure vs sepsis vs rapid afib.? I don?t think that the small infiltrate on CT in her posterior left lower lung is the cause.? No evidence that she?s a CO2 retainer.? ? if we need to r/o PE.? Start with DDimer and LE venous duplex. 2. Atrial fibrillation with rapid ventricular response.? On Diltiazem gtt, plus her home dose of metoprolol. 3. HFpEF. ?Diastolic failure and likely right heart failure.? At this time, she is definitely wet. ?Diurese. 4. Acute sepsis due to UTI.? Continue ceftriaxone. 5. Small left pulmonary infiltrate.? I?m dubious that this is a real clinical ?pneumonia?, but can?t rule it out.? Continue ceftriaxone and Zithromax. 6. Altered mental status on admission.? Metabolic encephalopathy.? Possible etiologies include sepsis, acute respiratory failure, and the gabapentin she was on while her renal indices were rising. 7. Acute on chronic kidney disease.? Possible etiologies include heart failure vs sepsis.? Started diuresis, we?ll see what happens to her renal indices. 8. Normocytic anemia.? Likely ACD. 9. Hyperkalemia.? Resolved w medical mx. 10. Probable at least mild PCM. 11. In my opinion, is very likely from the history that the patient has dementia, although it is certainly possible that the behavior above is a psychological abnormality rather than dementia. Critical care time (including full chart rev and review of extensive records from [facility]; excluding procedures):? 120 min. Critical Care Time (minutes): 120 Physical Exam Vital Signs: Vital Signs: Last Vital Signs Temp 100.9 F H 02/19/22 16:00 Pulse 118 H 02/19/22 16:00 Resp 20 02/19/22 16:00 BP 143/79 H 02/19/22 16:00 Pulse Ox 91 L 02/19/22 16:00 O2 Del Method 02/19/22 16:00 FiO2 40 02/19/22 16:07 BMI result Body Mass Index 40.9 Objective Data Labs CBC & Chem 7: 02/19/22 05:25 02/19/22 05:25 Labs: Laboratory Results - last 24 hr 02/18/22 02/18/22 02/18/22 15:52 15:57 19:09 WBC RBC Hgb Hct MCV MCH MCHC RDW Plt Count MPV Immature Gran % (Auto) Neut % (Auto) Lymph % (Auto) [place] % (Auto) Eos % (Auto) Baso % (Auto) Lymph # (Auto) [place] # (Auto) Eos # (Auto) Baso # (Auto) Abs Immat Gran (auto) Absolute Neuts (auto) Absolute Nucleated RBC Nucleated RBC % (auto) PT INR APTT VBG pH VBG pCO2 VBG pO2 VBG HCO3 VBG O2 Saturation VBG Base Excess Sodium Potassium Chloride Carbon Dioxide Anion Gap BUN Creatinine Estim Creat Clear Calc Estimated GFR POC Glucose Random Glucose Lactic Acid F/U @ 2Hr Calcium Phosphorus Magnesium Total Bilirubin AST ALT Alkaline Phosphatase Troponin I High Sens C-Reactive Protein B-Natriuretic Peptide Total Protein Albumin Procalcitonin Urine Color Dark Yellow Urine Appearance Turbid Urine pH 5.0 Ur Specific [place] 1.020 Urine Protein 100 (2+) H Urine Glucose (UA) Negative Urine Ketones Negative Urine Blood Moderate (2+) H Urine Nitrite Negative Ur Leukocyte Esterase Large (3+) H Urine RBC 0-2 Urine WBC >50 H Ur Squamous Epith Cells 3-5 Urine Bacteria 4+ Hyaline Casts 6-10 Granular Casts Present Urine Opiates Screen Not Detected Urine Fentanyl Screen Not Detected Ur Barbiturates Screen Not Detected Ur Phencyclidine Scrn Not Detected Ur Amphetamines Screen Not Detected U Benzodiazepines Scrn Not Detected Urine Cocaine Screen Not Detected U Marijuana (THC) Screen Not Detected Influenza Type A (NISHANT) Negative Influenza Type B (NISHANT) Negative Influenza A & B Note See Note 02/18/22 02/18/22 02/18/22 19:14 19:14 19:14 WBC RBC Hgb Hct MCV MCH MCHC RDW Plt Count MPV Immature Gran % (Auto) Neut % (Auto) Lymph % (Auto) [place] % (Auto) Eos % (Auto) Baso % (Auto) Lymph # (Auto) [place] # (Auto) Eos # (Auto) Baso # (Auto) Abs Immat Gran (auto) Absolute Neuts (auto) Absolute Nucleated RBC Nucleated RBC % (auto) PT 13.2 H INR 1.1 APTT 26.4 VBG pH VBG pCO2 VBG pO2 VBG HCO3 VBG O2 Saturation VBG Base Excess Sodium Potassium Chloride Carbon Dioxide Anion Gap BUN Creatinine Estim Creat Clear Calc Estimated GFR POC Glucose Random Glucose Lactic Acid F/U @ 2Hr 1.5 Calcium Phosphorus Magnesium Total Bilirubin AST ALT Alkaline Phosphatase Troponin I High Sens 80.7 H* C-Reactive Protein B-Natriuretic Peptide Total Protein Albumin Procalcitonin Urine Color Urine Appearance Urine pH Ur Specific [place] Urine Protein Urine Glucose (UA) Urine Ketones Urine Blood Urine Nitrite Ur Leukocyte Esterase Urine RBC Urine WBC Ur Squamous Epith Cells Urine Bacteria Hyaline Casts Granular Casts Urine Opiates Screen Urine Fentanyl Screen Ur Barbiturates Screen Ur Phencyclidine Scrn Ur Amphetamines Screen U Benzodiazepines Scrn Urine Cocaine Screen U Marijuana (THC) Screen Influenza Type A (NISHANT) Influenza Type B (NISHANT) Influenza A & B Note 02/18/22 02/18/22 02/18/22 19:14 19:14 19:14 WBC 15.6 H RBC 3.26 L Hgb 9.3 L Hct 30.7 L MCV 94.2 MCH 28.5 MCHC 30.3 L RDW 14.9 Plt Count 204 MPV 10.8 Immature Gran % (Auto) 0.5 H Neut % (Auto) 86.6 H Lymph % (Auto) 4.6 L [place] % (Auto) 8.2 Eos % (Auto) 0.0 Baso % (Auto) 0.1 Lymph # (Auto) 0.7 L [place] # (Auto) 1.3 H Eos # (Auto) 0.0 Baso # (Auto) 0.0 Abs Immat Gran (auto) 0.08 H Absolute Neuts (auto) 13.5 H Absolute Nucleated RBC 0.020 H Nucleated RBC % (auto) 0.1 PT INR APTT VBG pH VBG pCO2 VBG pO2 VBG HCO3 VBG O2 Saturation VBG Base Excess Sodium 138 Potassium 5.4 H Chloride 102 Carbon Dioxide 26 Anion Gap 15 BUN 49 H Creatinine 2.41 H Estim Creat Clear Calc 27.2 Estimated GFR 20 POC Glucose Random Glucose 161 H Lactic Acid F/U @ 2Hr Calcium 8.1 L Phosphorus 2.7 Magnesium 2.3 Total Bilirubin AST ALT Alkaline Phosphatase Troponin I High Sens C-Reactive Protein B-Natriuretic Peptide 230 H Total Protein Albumin Procalcitonin Urine Color Urine Appearance Urine pH Ur Specific [place] Urine Protein Urine Glucose (UA) Urine Ketones Urine Blood Urine Nitrite Ur Leukocyte Esterase Urine RBC Urine WBC Ur Squamous Epith Cells Urine Bacteria Hyaline Casts Granular Casts Urine Opiates Screen Urine Fentanyl Screen Ur Barbiturates Screen Ur Phencyclidine Scrn Ur Amphetamines Screen U Benzodiazepines Scrn Urine Cocaine Screen U Marijuana (THC) Screen Influenza Type A (NISHANT) Influenza Type B (NISHANT) Influenza A & B Note 02/18/22 02/18/22 02/18/22 19:14 19:20 20:24 WBC RBC Hgb Hct MCV MCH MCHC RDW Plt Count MPV Immature Gran % (Auto) Neut % (Auto) Lymph % (Auto) [place] % (Auto) Eos % (Auto) Baso % (Auto) Lymph # (Auto) [place] # (Auto) Eos # (Auto) Baso # (Auto) Abs Immat Gran (auto) Absolute Neuts (auto) Absolute Nucleated RBC Nucleated RBC % (auto) PT INR APTT VBG pH 7.33 VBG pCO2 50 VBG pO2 38 VBG HCO3 27 H VBG O2 Saturation 56.0 VBG Base Excess 1.2 Sodium Potassium Chloride Carbon Dioxide Anion Gap BUN Creatinine Estim Creat Clear Calc Estimated GFR POC Glucose 160 H Random Glucose Lactic Acid F/U @ 2Hr Calcium Phosphorus Magnesium Total Bilirubin AST ALT Alkaline Phosphatase Troponin I High Sens C-Reactive Protein B-Natriuretic Peptide Total Protein Albumin Procalcitonin 3.13 Urine Color Urine Appearance Urine pH Ur Specific [place] Urine Protein Urine Glucose (UA) Urine Ketones Urine Blood Urine Nitrite Ur Leukocyte Esterase Urine RBC Urine WBC Ur Squamous Epith Cells Urine Bacteria Hyaline Casts Granular Casts Urine Opiates Screen Urine Fentanyl Screen Ur Barbiturates Screen Ur Phencyclidine Scrn Ur Amphetamines Screen U Benzodiazepines Scrn Urine Cocaine Screen U Marijuana (THC) Screen Influenza Type A (NISHANT) Influenza Type B (NISHANT) Influenza A & B Note 02/18/22 02/19/22 02/19/22 21:37 05:25 05:25 WBC 15.8 H RBC 3.14 L Hgb 9.1 L Hct 29.6 L MCV 94.3 MCH 29.0 MCHC 30.7 L RDW 15.2 Plt Count 211 MPV 11.7 Immature Gran % (Auto) 0.9 H Neut % (Auto) 88.6 H Lymph % (Auto) 4.4 L [place] % (Auto) 5.8 Eos % (Auto) 0.1 Baso % (Auto) 0.2 Lymph # (Auto) 0.7 L [place] # (Auto) 0.9 Eos # (Auto) 0.0 Baso # (Auto) 0.0 Abs Immat Gran (auto) 0.14 H Absolute Neuts (auto) 14.0 H Absolute Nucleated RBC 0.020 H Nucleated RBC % (auto) 0.1 PT INR APTT VBG pH VBG pCO2 VBG pO2 VBG HCO3 VBG O2 Saturation VBG Base Excess Sodium 137 Potassium 4.7 Chloride 101 Carbon Dioxide 23 Anion Gap 18 BUN 53 H Creatinine 2.86 H Estim Creat Clear Calc 23.7 Estimated GFR 16 POC Glucose 161 H Random Glucose 260 H Lactic Acid F/U @ 2Hr Calcium 7.8 L Phosphorus 2.7 Magnesium Total Bilirubin 1.1 H AST 63 H ALT 25 Alkaline Phosphatase 111 Troponin I High Sens C-Reactive Protein 35.96 H B-Natriuretic Peptide Total Protein 5.4 L Albumin 3.3 L Procalcitonin Urine Color Urine Appearance Urine pH Ur Specific [place] Urine Protein Urine Glucose (UA) Urine Ketones Urine Blood Urine Nitrite Ur Leukocyte Esterase Urine RBC Urine WBC Ur Squamous Epith Cells Urine Bacteria Hyaline Casts Granular Casts Urine Opiates Screen Urine Fentanyl Screen Ur Barbiturates Screen Ur Phencyclidine Scrn Ur Amphetamines Screen U Benzodiazepines Scrn Urine Cocaine Screen U Marijuana (THC) Screen Influenza Type A (NISHANT) Influenza Type B (NISHANT) Influenza A & B Note 02/19/22 02/19/22 02/19/22 05:25 05:31 05:32 WBC RBC Hgb Hct MCV MCH MCHC RDW Plt Count MPV Immature Gran % (Auto) Neut % (Auto) Lymph % (Auto) [place] % (Auto) Eos % (Auto) Baso % (Auto) Lymph # (Auto) [place] # (Auto) Eos # (Auto) Baso # (Auto) Abs Immat Gran (auto) Absolute Neuts (auto) Absolute Nucleated RBC Nucleated RBC % (auto) PT INR APTT VBG pH 7.37 VBG pCO2 32 VBG pO2 39 VBG HCO3 18 L VBG O2 Saturation 60.0 VBG Base Excess -5.4 Sodium Potassium Chloride Carbon Dioxide Anion Gap BUN Creatinine Estim Creat Clear Calc Estimated GFR POC Glucose 229 H Random Glucose Lactic Acid F/U @ 2Hr Calcium Phosphorus Magnesium Total Bilirubin AST ALT Alkaline Phosphatase Troponin I High Sens C-Reactive Protein B-Natriuretic Peptide 143 H Total Protein Albumin Procalcitonin Urine Color Urine Appearance Urine pH Ur Specific [place] Urine Protein Urine Glucose (UA) Urine Ketones Urine Blood Urine Nitrite Ur Leukocyte Esterase Urine RBC Urine WBC Ur Squamous Epith Cells Urine Bacteria Hyaline Casts Granular Casts Urine Opiates Screen Urine Fentanyl Screen Ur Barbiturates Screen Ur Phencyclidine Scrn Ur Amphetamines Screen U Benzodiazepines Scrn Urine Cocaine Screen U Marijuana (THC) Screen Influenza Type A (NISHANT) Influenza Type B (NISHANT) Influenza A & B Note 02/19/22 12:12 WBC RBC Hgb Hct MCV MCH MCHC RDW Plt Count MPV Immature Gran % (Auto) Neut % (Auto) Lymph % (Auto) [place] % (Auto) Eos % (Auto) Baso % (Auto) Lymph # (Auto) [place] # (Auto) Eos # (Auto) Baso # (Auto) Abs Immat Gran (auto) Absolute Neuts (auto) Absolute Nucleated RBC Nucleated RBC % (auto) PT INR APTT VBG pH VBG pCO2 VBG pO2 VBG HCO3 VBG O2 Saturation VBG Base Excess Sodium Potassium Chloride Carbon Dioxide Anion Gap BUN Creatinine Estim Creat Clear Calc Estimated GFR POC Glucose 221 H Random Glucose Lactic Acid F/U @ 2Hr Calcium Phosphorus Magnesium Total Bilirubin AST ALT Alkaline Phosphatase Troponin I High Sens C-Reactive Protein B-Natriuretic Peptide Total Protein Albumin Procalcitonin Urine Color Urine Appearance Urine pH Ur Specific [place] Urine Protein Urine Glucose (UA) Urine Ketones Urine Blood Urine Nitrite Ur Leukocyte Esterase Urine RBC Urine WBC Ur Squamous Epith Cells Urine Bacteria Hyaline Casts Granular Casts Urine Opiates Screen Urine Fentanyl Screen Ur Barbiturates Screen Ur Phencyclidine Scrn Ur Amphetamines Screen U Benzodiazepines Scrn Urine Cocaine Screen U Marijuana (THC) Screen Influenza Type A (NISHANT) Influenza Type B (NISHANT) Influenza A & B Note Microbiology Microbiology Results: Microbiology 02/19/22 09:47 Sputum - Suctioned Gram Stain - Final 02/18/22 Unknown Urine clean catch - Urine smith top Urine Culture - Preliminary Gram negative mary alice Quality Stroke Does the patient have a stroke diagnosis?: No VTE Prior VTE?: No VTE Risk Level:: Medical - moderate - high VTE Device Contraindication: N/A - Device Ordered VTE Drug Contraindication: N/A - Med Ordered Critical Care Time Critical Care Time (minutes): 120
[2022-02-19] MEDS: Furosemide 40 MG/4 ML VIAL IVPUSH (18:04)
[2022-02-19] MEDS: fentaNYL citrate/PF 100 MCG/2 ML VIAL IVPUSH (18:06)
[2022-02-19] MEDS: propofoL 200 MG/20 ML VIAL 50 MG IVPUSH (18:06)
[2022-02-19] MEDS: Rocuronium Bromide 50 MG/5 ML VIAL IVPUSH (18:07)
--- NOTE | 2022-02-19 18:18 | P.PCNCC_ITS ---
Procedures Date of Service Date of Service: 02/18/22 Central Line Placement Left SC: Central Line Comments: PROCEDURE:? Emergent insertion left supraclavicular subclavian central venous line. INDICATION:? Septic shock, acute respiratory failure. ANESTHESIA:? IV sedation PROCEDURE:? Vascular ultrasound was used to examine the left side.? A large compressible SCL vein was noted in the supraclavic fossa. The left supraclavicular, subclavian, and left neck areas were widely prepped and draped in full sterile fashion.? The vessels were located by US.? The medial subclavian vein was cannulated on the 1st pass of the 18 gauge thin wall.? The wire was threaded without incident.? A 7 Hungarian by 16 cm triple-lumen catheter was advanced into the vein up to the hub via the Seldinger technique without incident.? There was good aspirate of blood x3.? The catheter was sutured x3 w 3-0 silk and a Biopatch and dry sterile dressing were applied. Postop chest x-ray showed the line in good position with no pneumothorax.? The patient tolerated the procedure well w no complications. Consent for Procedure: Emergent-no informed consent obtained
[2022-02-19 18:19] LABS: Glucose, Whole Blood 187 mg/dL (60-115)
--- NOTE | 2022-02-19 18:23 | W.PM.CCHP ---
Procedures Date of Service Date of Service: 02/19/22 Intubation Intubation Comments: PROCEDURE NOTE:? Tracheal intubation. INDICATIONS:? Acute respiratory failure, with blown cuff on in-situ endotracheal tube. Anesthesia:? Fentanyl 100ug, Propofol 50mg, Zemuron 50mg. Procedure:? The patient was preoxygenated with FiO2 90% on the ventilator.? RSI was carried out with the meds above.? Proview 3 MAC was inserted with easy video image of the glottis and in-situ ETT. The ETT was removed and a new 7.5 ETT was inserted without incident. Atraumatic.? +CO2, SpO2 maintained.? The tube was secured at 23 cm at upper lip. The patient natalia the procedure well with no complications.? Post op chest x-ray showed the ETT about 3cm above the ivet..
[2022-02-19] MEDS: Furosemide 200 MG in 0.9 % Sodium Chloride 80 ML IVCONT (18:30)
--- NOTE | 2022-02-19 18:59 | PC.NURSE ---
LARGE AIR LEAK NOTED - RT AND MD NOTIFIED. ETT CHANGED TO 7.5 AT [facility] AWAITING CXR FOR CONFIRMATION.
[2022-02-19 19:19] LABS: VBG Base Excess -2.6 mmol/L; VBG HCO3 22 mmol/L (22-26); VBG pCO2 40 mmHg; VBG pH 7.35 (7.32-7.43); VBG pO2 60 mmHg
[2022-02-19 19:20] LABS: Venous Blood Gas Refer to POC result
[2022-02-19] MEDS: dilTIAZem HCL 125 MG in 0.9 % Sodium Chloride 100 ML 15 MG IVCONT (19:33)
[2022-02-19] MEDS: Metoprolol Tartrate 50 MG TABLET PO (19:50)
[2022-02-20] VITALS (38 sets, daily range): BP systolic 97–144; BP diastolic 41–82; PULSE 81–129; RESP 16–29; TEMP 34.9–38.6; O2SAT 76–94; BMI 39.9
[2022-02-20 00:06] LABS: Glucose, Whole Blood 166 mg/dL (60-115)
[2022-02-20] MEDS: Insulin Lispro 100 UNIT/ML 3 ML VIAL SUBCUT ×2 (00:23→23:58)
[2022-02-20] MEDS: propofoL 1,000 MG/100 ML VIAL 14.15 MG IVCONT ×4 (00:51→19:24)
[2022-02-20 05:25] LABS: VBG Base Excess -5.7 mmol/L; VBG HCO3 18 mmol/L (22-26); VBG pCO2 30 mmHg; VBG pH 7.38 (7.32-7.43); VBG pO2 43 mmHg
[2022-02-20 05:38] LABS: MANUAL DIFF FLAG NO
[2022-02-20] MEDS: Heparin Sodium,Porcine 5,000 UNIT/ML VIAL 5000 UNIT SUBCUT ×3 (05:40→21:09)
[2022-02-20] MEDS: dilTIAZem HCL 125 MG in 0.9 % Sodium Chloride 100 ML IVCONT (05:40)
[2022-02-20 05:41] LABS: Hematocrit 33.8 % (37.0-47.0); Hemoglobin 10.6 g/dl (12.0-16.0); Mean Corpuscular HGB Conc 31.4 g/dl (31.0-35.0); Mean Corpuscular Hemoglobin 28.7 pg (27.0-33.0); Mean Corpuscular Volume 91.6 fL (80.0-98.0); Mean Platelet Volume 11.4 fL (9.4-12.3); NRBC Pct Auto 0.3 /100WBC (0.0-0.2); Platelet Count 296 X10*3/uL (160-400); Red Blood Count 3.69 X10*6/uL (4.20-5.50); Red Cell Distribution Width 15.4 % (11.0-16.0); White Blood Count 20.3 X10*3/uL (4.8-10.8)
[2022-02-20 05:41] LABS: Glucose, Whole Blood 152 mg/dL (60-115)
[2022-02-20 05:43] LABS: Venous Blood Gas Refer to POC result
[2022-02-20 05:43] LABS: Basophils Absolute Auto 0.1 X10*3/uL (0.0-0.2); Basophils Percent Auto 0.4 % (0-2); Eosinophils Percent Auto 0.2 % (0-4); Hematocrit 33.9 % (37.0-47.0); Hemoglobin 10.5 g/dl (12.0-16.0); Imm Gran Abs Auto 0.49 X10*3/uL (0.00-0.03); Imm Gran Pct Auto 2.5 % (0.0-0.4); Lymphocytes Absolute Auto 1.1 X10*3/uL (1.2-4.9); Lymphocytes Percent Auto 5.3 % (20-40); Mean Corpuscular Hemoglobin 28.8 pg (27.0-33.0); Mean Corpuscular Volume 93.1 fL (80.0-98.0); Mean Platelet Volume 11.6 fL (9.4-12.3); NRBC Pct Auto 0.3 /100WBC (0.0-0.2); Neutrophils Absolute Auto 17.2 x10*3/uL (2.0-8.3); Neutrophils Percent Auto 86.6 % (45-73); Platelet Count 291 X10*3/uL (160-400); Red Blood Count 3.64 X10*6/uL (4.20-5.50); Red Cell Distribution Width 15.3 % (11.0-16.0); White Blood Count 19.8 X10*3/uL (4.8-10.8)
[2022-02-20 05:49] LABS: D Dimer High Sensitivity 1638 NG/ML
[2022-02-20 06:04] LABS: Alanine Aminotransferase 30 U/L (0-31); Albumin Level 2.9 g/dL (3.5-5.0); Alkaline Phosphatase 144 U/L (39-117); Anion Gap 21 (12-20); Aspartate Amino Transferase 63 U/L (5-31); Bilirubin Total 0.7 mg/dL (0.0-1.0); Blood Urea Nitrogen 60 mg/dL (9-16); Calcium 7.2 mg/dL (8.4-10.2); Carbon Dioxide 21 mmol/L (22-29); Chloride 103 mmol/L (96-108); Creatinine Clr Calc Pharmacy 20.4; Estimated Glomerular Filt Rate 14; Glucose Random 172 mg/dL (60-115); Magnesium 2.1 mg/dL (1.6-2.6); Phosphorus 3.9 mg/dL (2.7-4.5); Potassium 4.8 mmol/L (3.3-5.1); Sodium 140 mmol/L (135-145); Total Protein 5.3 g/dL (6.5-8.0)
[2022-02-20 06:05] LABS: Alanine Aminotransferase 31 U/L (0-31); Albumin Level 2.9 g/dL (3.5-5.0); Alkaline Phosphatase 143 U/L (39-117); Anion Gap 21 (12-20); Aspartate Amino Transferase 64 U/L (5-31); Bilirubin Total 0.8 mg/dL (0.0-1.0); Blood Urea Nitrogen 61 mg/dL (9-16); Calcium 7.4 mg/dL (8.4-10.2); Carbon Dioxide 21 mmol/L (22-29); Chloride 103 mmol/L (96-108); Creatinine Clr Calc Pharmacy 20.6; Estimated Glomerular Filt Rate 14; Glucose Random 173 mg/dL (60-115); Potassium 4.8 mmol/L (3.3-5.1); Sodium 140 mmol/L (135-145); Total Protein 5.3 g/dL (6.5-8.0)
[2022-02-20] MEDS: Albumin Human 25 % 100 ML IV ×2 (08:13→09:12)
[2022-02-20] MEDS: Metoprolol Tartrate 50 MG TABLET PO ×3 (08:16→20:00)
[2022-02-20] MEDS: Chlorhexidine Gluc Oral Rinse 15 ML MOUTHWASH BUCCAL ×3 (08:16→20:00)
--- NOTE | 2022-02-20 10:57 | P.PNCC_ITS ---
Subjective Subjective Date of Service: 02/20/22 Interval History: The patient is a 76-year-old female w PMHx of supermorbid obesity, COPD with 60 Temp 100.6 F H 02/20/22 10:00
--- NOTE | 2022-02-20 10:57 | PM.CCPN ---
Subjective Subjective Date of Service: 02/20/22 Interval History: Mrs. Stewart was admitted to the ICU on Feb 18 with acute respiratory failure. The patient is a 76-year-old female w PMHx of supermorbid obesity, COPD with 60 pack-year smoking history, quit in October of last year, oxygen dependent 2 L at rest and 3 L with exertion; pneumonia, CHF, hypothyroidism, atrial fibrillation not on anticoagulation, CKD stage 3, peripheral neuropathy, hypertension, GERD, leg edema. Part of history was obtained from a [facility] discharge note of 10/28/21 for hospitalization for acute on chronic respiratory failure with HFpEF.? Admitting serum bicarb was 32 (so not likely a signif CO2 retainer.)? Chest CTA at that time was negative for PE.? Duplex scan negative for DVT.? Creatinine bumped to 1.65 at discharge, thought secondary to IV contrast. I talked with Dr. Eastman (one of her heat reader's) yesterday.? In 2020, she presented to [facility] with a rectus sheath hematoma, secondary to anticoagulation for atrial fibrillation.? At that time, she was taken off anticoagulation, and on 09/10/21 a Watchman device was inserted by Dr. Agustin.? Since then, she has had at least 2 TEEs for follow-up.? Last DANGELO was in September of 2021 which showed that the left atrial appendage was occluded.? LV ejection fraction was 60%, RV was normal size with normal function.? There was 1+ MR, 1+ TR, and the tricuspid CWD gradient was 26 mm.? Creatinine was 1.1. Social Hx:? The patient was living with her up until he in 2009.? Since then, the patient has been living with a variety of different family members, in different family situations.? For the last year, the patient was living with her daughter Haley De Jesus ([phone]) who is the healthcare proxy.? According to Haley, who I spoke with on the phone today for about 20 minutes, the patient has had long-term problems with hoarding, impulsiveness, poor judgment, lack of self-care (e.g. not bathing for a year), compulsive eating, bingeing (eg. eating 60 lbs of sugar over a weekend), etc.? She?s put on 30 lbs in the last year.? She leaves the fire on the stove all night.? She hasn?t yet been diagnosed with dementia by the any of the physicians she has seen. The situation at Haley?s house finally got to be too much, and too unsafe, therefore Haley moved her mother into [facility] about a week ago. HISTORY OF PRESENT ILLNESS:? The patient was BIBA to the ED on Feb 18 w c/o of SOB and weakness x 3 days, incontinence of urine.? The patient?s daughter saw her, noted she was struggling to breathe, so called EMS. On arrival to the ED, the patient was in obvious respiratory distress.? She was intubated immediately.? She was afebrile and normotensive.? Workup significant for white count 16, Hgb 10, lactic acid of 2.3, troponin of 73 and flat, BNP of 222.? ABG 7.34/35/82/-5.? CXR showed ? enlarged right heart, bilateral patchy mid to lower lung opacities with small pleural effusions.? COVID negative.? U/A showed gross infection. The patient was given 1 L of IV fluids, Rocephin, and Zithromax.? The patient was then given Lasix 40 mg because of suspicion for CHF.? Noncontrast chest CT showed a small posterior lower lobe area of consolidation.? Head CT showed small chronic infarcts in the right frontal, parietal and occipital lobes and chronic lacunar infarct in the right caudate head. The patient was then transferred to the ICU.? A CVL was placed.? In the ICU, the patient spiked a temperature to > 103.5.? She became hypotensive, but her repeat lactate was normal.? The patient was treated for acute sepsis due to community-acquired pneumonia and UTI, w ceftriaxone and Zithromax.? She was given diltiazem drip for AFib with RVR. ECHO done yesterday morning, interpreted by me, showed normal LV cavity size and fxn, EF 55-60%.? RV slightly dilated.? No AI or .? Trace MR.? 2+ TR with CWD measuring 3.0 m/sec (gradient 36mm).? IVC measured 2.5 cm.? RVSP 51mm.? I started her on a Lasix drip 5mg/hr. Overnite she made only about 100cc urine, but this morning (for unclear reasons) her u/o picked up dramatically, about 100cc/hr.? Increased the Lasix to 10mg/hr.? The patient is mod sedated on propofol 20ug.? HR 86, Afib, on diltiazem 5 mg.? BP 113/68 on Levophed 0.08ug.? On AC 20/400/50%/+12, RR 21, Ve 8.4L, PIP 33, ETCO2 30, Sat 93%.? CVBG 7.38/30/-5.? Temp 100.6?.? No JVD.? Chest is CTA with normal exp phase. ?Heart tones soft, I heard no murmur or gallops.? Abdomen is obese and benign.? She has no peripheral or central edema. LABORATORY DATA:? Below. IMPRESSION: 1. Acute on chronic hypoxemic respiratory failure.? Unclear etiology:? Heart failure vs sepsis vs rapid afib.? I don?t think that the small infiltrate on CT in her posterior left lower lung is the cause.? No evidence that she?s a CO2 retainer.? ? if we need to r/o PE.? DDimer is high (no help).? LE venous duplex is negative.? We?ll send her for a perfusion scan. 2. Atrial fibrillation with rapid ventricular response.? On Diltiazem gtt, plus her home dose of metoprolol. 3. HFpEF.? Diastolic failure and likely right heart failure.? CXR looks very convincing that she?s wet, as was the echo.? Diurese.? Discussed at length today with both Dr. Parikh and Dr. Richards.? They both agree.? I did discuss with Dr. Parikh whether a right heart catheterization was indicated.? He feels not yet, possibly tomorrow. 4. Acute sepsis due to UTI.? Continue ceftriaxone. 5. Small left pulmonary infiltrate.? I?m dubious that this is a real clinical ?pneumonia?, but can?t rule it out.? Bec her WBC is going up, I changed her abx to vanco and Zosyn. 6. Altered mental status on admission.? Metabolic encephalopathy.? Possible etiologies include sepsis, acute respiratory failure, and the gabapentin she was on while her renal indices were rising. 7. Acute on chronic kidney disease.? Possible etiologies include heart failure vs sepsis.? Started diuresis, so change yet, but she just started diuresing this morning.? I added Diuril. 8. Normocytic anemia.? Likely ACD. 9. Probable at least mild PCM. 10. In my opinion, is very likely from the history that the patient has dementia, although it is certainly possible that the behavior above is a psychological abnormality rather than dementia. Spoke to the family at length.? They were concerned that this was an end of life situation.? I indicated to them my opinion that this was definitely not that, at least at this time.? At this time, I have little reason to believe that the patient will not survive. Critical care time:? 90+ min Critical Care Time (minutes): 90 Physical Exam Vital Signs: Vital Signs: Last Vital Signs Temp 100.6 F H 02/20/22 10:00 Pulse 100 02/20/22 10:00 Resp 22 H 02/20/22 10:00 BP 131/81 02/20/22 10:00 Pulse Ox 94 02/20/22 10:00 O2 Del Method 02/20/22 10:00 FiO2 50 02/20/22 10:00 BMI result Body Mass Index 39.9 Objective Data Labs CBC & Chem 7: 02/20/22 05:12 02/20/22 05:12 Labs: Laboratory Results - last 24 hr 02/19/22 02/19/22 02/19/22 12:12 18:03 19:13 WBC RBC Hgb Hct MCV MCH MCHC RDW Plt Count MPV Immature Gran % (Auto) Neut % (Auto) Lymph % (Auto) Power % (Auto) Eos % (Auto) Baso % (Auto) Lymph # (Auto) Power # (Auto) Eos # (Auto) Baso # (Auto) Abs Immat Gran (auto) Absolute Neuts (auto) Absolute Nucleated RBC Nucleated RBC % (auto) D-Dimer High Sensitivty VBG pH 7.35 VBG pCO2 40 VBG pO2 60 VBG HCO3 22 VBG O2 Saturation 85.0 VBG Base Excess -2.6 Sodium Potassium Chloride Carbon Dioxide Anion Gap BUN Creatinine Estim Creat Clear Calc Estimated GFR POC Glucose 221 H 187 H Random Glucose Calcium Phosphorus Magnesium Total Bilirubin AST ALT Alkaline Phosphatase Total Protein Albumin 1002/20/22 02/20/22 00:03 05:12 05:12 WBC 20.3 H RBC 3.69 L Hgb 10.6 L Hct 33.8 L MCV 91.6 MCH 28.7 MCHC 31.4 RDW 15.4 Plt Count 296 D MPV 11.4 Immature Gran % (Auto) Neut % (Auto) Lymph % (Auto) Power % (Auto) Eos % (Auto) Baso % (Auto) Lymph # (Auto) Power # (Auto) Eos # (Auto) Baso # (Auto) Abs Immat Gran (auto) Absolute Neuts (auto) Absolute Nucleated RBC 0.060 H Nucleated RBC % (auto) 0.3 H D-Dimer High Sensitivty 1638 VBG pH VBG pCO2 VBG pO2 VBG HCO3 VBG O2 Saturation VBG Base Excess Sodium Potassium Chloride Carbon Dioxide Anion Gap BUN Creatinine Estim Creat Clear Calc Estimated GFR POC Glucose 166 H Random Glucose Calcium Phosphorus Magnesium Total Bilirubin AST ALT Alkaline Phosphatase Total Protein Albumin 02/20/22 02/20/22 02/20/22 05:12 05:12 05:12 WBC 19.8 H RBC 3.64 L Hgb 10.5 L Hct 33.9 L MCV 93.1 MCH 28.8 MCHC 31.0 RDW 15.3 Plt Count 291 MPV 11.6 Immature Gran % (Auto) 2.5 H Neut % (Auto) 86.6 H Lymph % (Auto) 5.3 L Power % (Auto) 5.0 Eos % (Auto) 0.2 Baso % (Auto) 0.4 Lymph # (Auto) 1.1 L Power # (Auto) 1.0 Eos # (Auto) 0.0 Baso # (Auto) 0.1 Abs Immat Gran (auto) 0.49 H Absolute Neuts (auto) 17.2 H Absolute Nucleated RBC 0.060 H Nucleated RBC % (auto) 0.3 H D-Dimer High Sensitivty VBG pH VBG pCO2 VBG pO2 VBG HCO3 VBG O2 Saturation VBG Base Excess Sodium 140 140 Potassium 4.8 4.8 Chloride 103 103 Carbon Dioxide 21 L 21 L Anion Gap 21 H 21 H BUN 60 H 61 H Creatinine 3.28 H 3.26 H Estim Creat Clear Calc 20.4 20.6 Estimated GFR 14 14 POC Glucose Random Glucose 172 H 173 H Calcium 7.2 L D 7.4 L Phosphorus 3.9 Magnesium 2.1 Total Bilirubin 0.7 0.8 AST 63 H 64 H ALT 30 31 Alkaline Phosphatase 144 H D 143 H Total Protein 5.3 L 5.3 L Albumin 2.9 L 2.9 L 02/20/22 02/20/22 05:20 05:35 WBC RBC Hgb Hct MCV MCH MCHC RDW Plt Count MPV Immature Gran % (Auto) Neut % (Auto) Lymph % (Auto) Power % (Auto) Eos % (Auto) Baso % (Auto) Lymph # (Auto) Power # (Auto) Eos # (Auto) Baso # (Auto) Abs Immat Gran (auto) Absolute Neuts (auto) Absolute Nucleated RBC Nucleated RBC % (auto) D-Dimer High Sensitivty VBG pH 7.38 VBG pCO2 30 VBG pO2 43 VBG HCO3 18 L VBG O2 Saturation 67.0 VBG Base Excess -5.7 Sodium Potassium Chloride Carbon Dioxide Anion Gap BUN Creatinine Estim Creat Clear Calc Estimated GFR POC Glucose 152 H Random Glucose Calcium Phosphorus Magnesium Total Bilirubin AST ALT Alkaline Phosphatase Total Protein Albumin Microbiology Microbiology Results: Microbiology 02/18/22 Unknown Urine clean catch - Urine smith top Urine Culture - Final Escherichia coli 02/18/22 15:05 Blood - Venous Blood Culture - Preliminary No growth after 24 hours. 02/18/22 15:05 Blood - Venous Blood Culture - Preliminary No growth after 24 hours. 02/19/22 09:47 Sputum - Suctioned Gram Stain - Final Quality Stroke Does the patient have a stroke diagnosis?: No VTE Prior VTE?: No VTE Risk Level:: Medical - moderate - high VTE Device Contraindication: N/A - Device Ordered VTE Drug Contraindication: N/A - Med Ordered Critical Care Time Critical Care Time (minutes): 90
--- NOTE | 2022-02-20 11:44 | PHA.PROG ---
Admission Date/Time: February 18, 2022 17:18 Indication: RESP INF Weight in k.7 kg Adjusted body weight in K.8 KG [facility] body weight in K.2 Obesity Dosing Indication % IBW: Serum Creatinine - Last 168 Hours 02/18/22 02/18/22 02/19/22 14:10 19:14 05:25 Creatinine 1.93 H 2.41 H 2.86 H 02/20/22 02/20/22 05:12 05:12 Creatinine 3.28 H 3.26 H Estimated CrCl and GFR - Last 168 Hours 02/18/22 02/18/22 02/19/22 14:10 19:14 05:25 Estim Creat Clear Calc 34.0 27.2 23.7 Estimated GFR 25 20 16 02/20/22 02/20/22 05:12 05:12 Estim Creat Clear Calc 20.4 20.6 Estimated GFR 14 14 Vancomycin Loading Dose: 2000 MG Current Vancomycin Dosing Regimen: 500 MG Q24H Vancomycin Monitoring using AUC goal of 400 - 600 range with trough as surrogate marker: PREDICTED AUC OF 551 Date and Time for next Vancomycin Level to be drawn: RANDOM BEFORE 2ND DOSE 02/21/22 @1100 Pharmacist Comments on Vancomycin Plan: OBESE MODEL USED. WEIGHT VERIFIED WITH RN 122.7 KG. PLEASE GET DAILY LEVELS. Vancomycin dosing will take advantage of [employer] as a clinical decision support tool that uses Bayesian modeling to calculate individual patient's pharmacokinetic parameters and forecast the patient's drug concentration time course with the target goal AUC 24 range of 400 - 600 mg/L/hr.
[2022-02-20] MEDS: Chlorothiazide Sodium 500 MG VIAL IVPUSH (12:21)
[2022-02-20] MEDS: Piperacillin Sodium/Tazobactam 3.375 GM in 0.9 % Sodium Chloride 50 ML IV ×2 (12:30→17:52)
--- NOTE | 2022-02-20 12:39 | PM.CNCAR ---
History of Present Illness History of Present Illness Date of Service: 02/20/22 Requesting physician: Andrea Kaufman Consult reason: other (Acute respiratory failure) Chief complaint: acute respiratory failure Narrative: I was consulted to see this patient who came to the hospital with acute respiratory failure. Requiring mechanical ventilation. Patient was also worsening renal function and there was concern for florid heart failure. Patient was started on Lasix drip with only for diuretic response overnight. However since morning she is at about 350 cc in her back. Urine appears to be light color. She is training urine freely at this point in time. She is hemodynamically stable requiring low-dose of norepinephrine. She is also on Cardizem drip for rate control which she is currently well controlled. History was obtained from the chart. Patient with prior history of chronic atrial fibrillation status post Watchman device in August as well as COPD as well as chronic kidney disease, oxygen dependent, hypothyroidism, morbid obesity, dementia. She was sent to the hospital from the local assisted living facility with worsening shortness of breath and weakness. She has continuously febrile. Chest x-ray and CT scan finding consistent with pneumonic consolidation bilaterally. She is currently on mechanical ventilation per as per the nurse her oxygen requirement has reduced overnight. Review of Systems Review of Systems: Yes unobtainable due to endotracheal tube PMFSH Social History Social History Currently Displaying Signs/Symptoms of Drug Intoxication Withdrawal: No Advance Directives: No Advance Directives Information Provided: No service: No Current occupational status: retired Meds Allergies Allergy/AdvReac Type Severity Reaction Status Date / Time No Known Allergies Allergy Verified 02/18/22 13:32 Active Medications: Current Medications Chlorhexidine Gluconate (Chlorhexidine Gluc Oral Rinse 15 Ml Mouthwash) 15 ml BUCCAL TID [facility] Last Admin: 02/20/22 08:16 Dose: 15 ml Heparin Sodium (Porcine) (Heparin Sodium,Porcine 5,000 Unit/Ml Vial) 5,000 unit SUBCUT Q8H [facility] Last Admin: 02/20/22 05:40 Dose: 5,000 unit Propofol (Diprivan) 1,000 mg in 100 mls @ 0 mls/hr IVCONT .Q0M [facility]; Protocol Last Admin: 02/20/22 08:07 Dose: 20 mcg/kg/min, 14.15 mls/hr Norepinephrine Bitartrate (Levophed) 8 mg in 250 mls @ 0 mls/hr IVCONT .Q0M [facility]; Protocol Last Titration: 02/20/22 11:06 Dose: 0.08 mcg/kg/min, 17.69 mls/hr Diltiazem HCl 125 mg/ Sodium (Chloride) 125 mls @ 0 mls/hr IVCONT .Q0M [facility]; Protocol Last Admin: 02/20/22 05:40 Dose: 5 mg/hr, 5 mls/hr Furosemide 200 mg/ Sodium (Chloride) 100 mls @ 5 mls/hr IVCONT .Q20H [facility] Last Infusion: 02/20/22 11:03 Dose: 10 mg/hr, 5 mls/hr Piperacillin Sod/Tazobactam (Sod 3.375 gm/ Sodium Chloride) 50 mls @ 100 mls/hr IV Q6H [facility] Last Admin: 02/20/22 12:30 Dose: 100 mls/hr Vancomycin HCl (Vancomycin/Ns) 2,000 mg in 520 mls @ 260 mls/hr IV ONCE ONE Stop: 02/20/22 13:39 Last Admin: 02/20/22 12:25 Dose: 260 mls/hr Vancomycin HCl 500 mg/ Sodium (Chloride) 110 mls @ 110 mls/hr IV Q24H [facility] Insulin Human Lispro (Insulin Lispro 100 Unit/Ml 3 Ml Vial) 0 unit SUBCUT Q6H [facility]; Protocol Last Admin: 02/20/22 12:10 Dose: Not Given Metoprolol Tartrate (Metoprolol Tartrate 50 Mg Tablet) 50 mg PO TID [facility]; Protocol Last Admin: 02/20/22 08:16 Dose: 50 mg Omeprazole (Omeprazole 20 Mg/10 Ml Susp.Recon) 40 mg G-TUBE DAILY@0630 [facility] Last Admin: 02/20/22 05:40 Dose: 40 mg Pharmacy Consult (Consult Rx Vancomycin Dosing) 1 each MISCELLANE DAILY PRN PRN Reason: Consult order Home Medications Medication Instructions Recorded Confirmed Last Taken Type albuterol sulfate 90 mcg/actuation 2 puff inhalation Q6H PRN 02/18/22 02/18/22 Unknown History aerosol inhaler (Ventolin HFA) Respiratory Distress aspirin 81 mg tablet,delayed 81 mg PO DAILY 02/18/22 02/18/22 Unknown History release atorvastatin 40 mg tablet 40 mg PO BEDTIME 02/18/22 02/18/22 Unknown History calcitriol 0.25 mcg capsule 0.25 mcg PO Q2D@1000 02/18/22 02/18/22 Unknown History clopidogrel 75 mg tablet 75 mg PO DAILY 02/18/22 02/18/22 Unknown History docusate sodium 100 mg capsule 100 mg PO BID 02/18/22 02/18/22 Unknown History ferrous sulfate 324 mg (65 mg 324 mg PO DAILY 02/18/22 02/18/22 Unknown History iron) tablet,delayed release fluticasone furoate 100 1 inh inhalation DAILY 02/18/22 02/18/22 Unknown History mcg-vilanterol 25 mcg/dose inhalation powder (Breo Ellipta) furosemide 40 mg tablet 40 mg PO DAILY 02/18/22 02/18/22 Unknown History gabapentin 300 mg capsule 300 mg PO DAILY 02/18/22 02/18/22 Unknown History gabapentin 600 mg tablet 600 mg PO BEDTIME 02/18/22 02/18/22 Unknown History levothyroxine 125 mcg tablet 125 mcg PO DAILY 02/18/22 02/18/22 Unknown History losartan 50 mg tablet 50 mg PO DAILY 02/18/22 02/18/22 Unknown History metoprolol tartrate 25 mg tablet 25 mg PO TID 02/18/22 02/18/22 Unknown History mirabegron 25 mg tablet,extended 25 mg PO DAILY 02/18/22 02/18/22 Unknown History release 24 hr (Myrbetriq) pantoprazole 40 mg tablet,delayed 40 mg PO DAILY 02/18/22 02/18/22 Unknown History release sennosides 8.6 mg tablet (senna) 17.2 mg PO BEDTIME 02/18/22 02/18/22 Unknown History tiotropium bromide 18 mcg capsule 1 cap inhalation DAILY 02/18/22 02/18/22 Unknown History with inhalation device (Spiriva with HandiHaler) Physical Exam Vital Signs: Vital Signs: Last Vital Signs Temp 100.6 F H 02/20/22 12:00 Pulse 94 02/20/22 12:00 Resp 23 H 02/20/22 12:00 BP 116/63 02/20/22 12:00 Pulse Ox 93 02/20/22 12:00 O2 Del Method 02/20/22 12:00 FiO2 50 02/20/22 12:00 BMI result Body Mass Index 39.9 Const: General: other (Sedated on ventilator) Nutritional Appearance: obese morbidly obese HEENT: Head: Yes normocephalic and Yes atraumatic Neck: Neck: Yes trachea midline, Yes supple and Yes other (Cannot assess JVD) Resp: Effort & Inspection: symmetric chest movement and other (Intubated) Auscultation: no rales and no wheezes Cardio: Rate: regular rate Rhythm: abnormal rhythm irregularly irregular Heart sounds: S1 normal heart sound present, S2 normal heart sound present, no click, no gallops and no murmurs GI: Auscultation: normal bowel sounds Skin: General skin exam: no rashes or lesions noted and ecchymosis Extrem: General: No clubbing, No cyanosis, No edema and Yes pedal edema Objective Labs and Meds Result diagrams: 02/20/22 05:12 02/20/22 05:12 Lab results: Laboratory Results - last 24 hr 02/19/22 02/19/22 02/20/22 18:03 19:13 00:03 WBC RBC Hgb Hct MCV MCH MCHC RDW Plt Count MPV Immature Gran % (Auto) Neut % (Auto) Lymph % (Auto) [place] % (Auto) Eos % (Auto) Baso % (Auto) Lymph # (Auto) [place] # (Auto) Eos # (Auto) Baso # (Auto) Abs Immat Gran (auto) Absolute Neuts (auto) Absolute Nucleated RBC Nucleated RBC % (auto) D-Dimer High Sensitivty VBG pH 7.35 VBG pCO2 40 VBG pO2 60 VBG HCO3 22 VBG O2 Saturation 85.0 VBG Base Excess -2.6 Sodium Potassium Chloride Carbon Dioxide Anion Gap BUN Creatinine Estim Creat Clear Calc Estimated GFR POC Glucose 187 H 166 H Random Glucose Calcium Phosphorus Magnesium Total Bilirubin AST ALT Alkaline Phosphatase Total Protein Albumin 02/20/22 02/20/22 02/20/22 05:12 05:12 05:12 WBC 20.3 H RBC 3.69 L Hgb 10.6 L Hct 33.8 L MCV 91.6 MCH 28.7 MCHC 31.4 RDW 15.4 Plt Count 296 D MPV 11.4 Immature Gran % (Auto) Neut % (Auto) Lymph % (Auto) [place] % (Auto) Eos % (Auto) Baso % (Auto) Lymph # (Auto) [place] # (Auto) Eos # (Auto) Baso # (Auto) Abs Immat Gran (auto) Absolute Neuts (auto) Absolute Nucleated RBC 0.060 H Nucleated RBC % (auto) 0.3 H D-Dimer High Sensitivty 1638 VBG pH VBG pCO2 VBG pO2 VBG HCO3 VBG O2 Saturation VBG Base Excess Sodium 140 Potassium 4.8 Chloride 103 Carbon Dioxide 21 L Anion Gap 21 H BUN 60 H Creatinine 3.28 H Estim Creat Clear Calc 20.4 Estimated GFR 14 POC Glucose Random Glucose 172 H Calcium 7.2 L D Phosphorus 3.9 Magnesium 2.1 Total Bilirubin 0.7 AST 63 H ALT 30 Alkaline Phosphatase 144 H D Total Protein 5.3 L Albumin 2.9 L 02/20/22 02/20/22 02/20/22 05:12 05:12 05:20 WBC 19.8 H RBC 3.64 L Hgb 10.5 L Hct 33.9 L MCV 93.1 MCH 28.8 MCHC 31.0 RDW 15.3 Plt Count 291 MPV 11.6 Immature Gran % (Auto) 2.5 H Neut % (Auto) 86.6 H Lymph % (Auto) 5.3 L [place] % (Auto) 5.0 Eos % (Auto) 0.2 Baso % (Auto) 0.4 Lymph # (Auto) 1.1 L [place] # (Auto) 1.0 Eos # (Auto) 0.0 Baso # (Auto) 0.1 Abs Immat Gran (auto) 0.49 H Absolute Neuts (auto) 17.2 H Absolute Nucleated RBC 0.060 H Nucleated RBC % (auto) 0.3 H D-Dimer High Sensitivty VBG pH 7.38 VBG pCO2 30 VBG pO2 43 VBG HCO3 18 L VBG O2 Saturation 67.0 VBG Base Excess -5.7 Sodium 140 Potassium 4.8 Chloride 103 Carbon Dioxide 21 L Anion Gap 21 H BUN 61 H Creatinine 3.26 H Estim Creat Clear Calc 20.6 Estimated GFR 14 POC Glucose Random Glucose 173 H Calcium 7.4 L Phosphorus Magnesium Total Bilirubin 0.8 AST 64 H ALT 31 Alkaline Phosphatase 143 H Total Protein 5.3 L Albumin 2.9 L 02/20/22 02/20/22 05:35 12:03 WBC RBC Hgb Hct MCV MCH MCHC RDW Plt Count MPV Immature Gran % (Auto) Neut % (Auto) Lymph % (Auto) [place] % (Auto) Eos % (Auto) Baso % (Auto) Lymph # (Auto) [place] # (Auto) Eos # (Auto) Baso # (Auto) Abs Immat Gran (auto) Absolute Neuts (auto) Absolute Nucleated RBC Nucleated RBC % (auto) D-Dimer High Sensitivty VBG pH VBG pCO2 VBG pO2 VBG HCO3 VBG O2 Saturation VBG Base Excess Sodium Potassium Chloride Carbon Dioxide Anion Gap BUN Creatinine Estim Creat Clear Calc Estimated GFR POC Glucose 152 H 145 H Random Glucose Calcium Phosphorus Magnesium Total Bilirubin AST ALT Alkaline Phosphatase Total Protein Albumin Echocardiogram shows normal LV systolic function with biatrial enlargement with IVC enlarged probably because of positive-pressure ventilation with mild RV enlargement. Imaging Radiologist's impression: Impressions Chest X-Ray 02/19/22 18:51 IMPRESSION: Endotracheal tube terminates at 3 cm above the ivet. Stable bibasilar airspace opacities and pleural effusions. Venous Duplex 02/19/22 21:01 IMPRESSION: No DVT demonstrated in the bilateral lower extremities. Assessment and Plan (1) Respiratory failure: Qualifiers: Chronicity: acute Respiratory failure complication: hypoxia Qualified Code(s): J96.01 - Acute respiratory failure with hypoxia Status: Acute Acute respiratory failure in this elderly woman with acute kidney injury with bilateral pneumonia with febrile episodes. Clinically this does not appear to be florid congestive heart failure to me at this point time. Echocardiographic findings are not really concerning as well as minimal BNP elevation. There is pneumonic process going on both lungs with may be atelectasis 1 of the other lungs. Hemodynamically she is stable and now started to put out urine with Lasix drip. This can be continued if there is still clinical suspicion of congestive heart failure. However there is no further improvement in her respiratory status and/or further increase requirement of oxygen and further rise in BNP, can consider right heart catheterization given that her volume status as well as assessment of filling pressures are very difficult in this woman. However at this point time she appears to be improving clinically. Hemodynamically is stable with low vasopressor requirements. Also heart rate is better controlled on Cardizem drip. Will continue all with supportive care and ventilator care. Continue monitor closely clinically and see how she responds with current treatment and management plan which seems to be working in the right direction. Continue treat her underlying infectious process still appears to be febrile. Will follow up if need be. Thank you for allowing us to partake in her care Procedures Date of Service Date of Service: 02/20/22
--- NOTE | 2022-02-20 12:43 | PM.CNNEP ---
History of Present Illness Reason for Consult Consult date: 02/20/22 Reason for consult: KENJI and Volume Assessment Requesting physician: Andrea Kaufman Chief Complaint Chief complaint: acute respiratory failure History of Present Illness Narrative: Ms. Shanon Stewart is a 76-year-old female with CKD stage IIIa (BL Cr 1.3mg/dL) 2/2 left renal atrophy and yuko-vascular disease (followed by Dr Hi), emphysema (O2 dependent), HFpEF, Hypothyroidism, A. fib (no anticoagulated), HTN who presented with 3 days worth of shortness of breath and weakness with an increasing home O2 requirement. Patient arrived to the emergency room with increased WOB and had poor GCS. Pt was intubated in ED. Her workup was significant forleukocytosis 16.9, Hgb 10, lactic acid of 2.3, troponin of 73, BNP of 222, her arterial blood gas showed pH of 7.34, pCO2 of 35, PO2 of 82 c/w AGMA.? The x-ray done at the time showed bilateral patchy in the mid to lower lung bernstein with small pleural effusions which could represent either edema versus infectious or inflammatory process.?She was initially given 1L IVF, but then converted to IV lasix pushes due to concern for underlying CHF. Work up included - CXR w/ central engorgment - CT Chest with Pl effusions and LLL PNA - CT abd with left renal atrophy - Echo with engorged IVC without collapsibility - U/A showing urine sediment c/w Granular Casts Review of Systems Review of Systems Yes unobtainable due to endotracheal tube PMFSH Social History Social History Currently Displaying Signs/Symptoms of Drug Intoxication Withdrawal: No Advance Directives: No Advance Directives Information Provided: No service: No Current occupational status: retired Meds Allergies Allergy/AdvReac Type Severity Reaction Status Date / Time No Known Allergies Allergy Verified 02/18/22 13:32 Active Medications: Current Medications Chlorhexidine Gluconate (Chlorhexidine Gluc Oral Rinse 15 Ml Mouthwash) 15 ml BUCCAL TID [facility] Last Admin: 02/20/22 08:16 Dose: 15 ml Heparin Sodium (Porcine) (Heparin Sodium,Porcine 5,000 Unit/Ml Vial) 5,000 unit SUBCUT Q8H [facility] Last Admin: 02/20/22 05:40 Dose: 5,000 unit Propofol (Diprivan) 1,000 mg in 100 mls @ 0 mls/hr IVCONT .Q0M [facility]; Protocol Last Admin: 02/20/22 08:07 Dose: 20 mcg/kg/min, 14.15 mls/hr Norepinephrine Bitartrate (Levophed) 8 mg in 250 mls @ 0 mls/hr IVCONT .Q0M [facility]; Protocol Last Titration: 02/20/22 11:06 Dose: 0.08 mcg/kg/min, 17.69 mls/hr Diltiazem HCl 125 mg/ Sodium (Chloride) 125 mls @ 0 mls/hr IVCONT .Q0M [facility]; Protocol Last Admin: 02/20/22 05:40 Dose: 5 mg/hr, 5 mls/hr Furosemide 200 mg/ Sodium (Chloride) 100 mls @ 5 mls/hr IVCONT .Q20H [facility] Last Infusion: 02/20/22 11:03 Dose: 10 mg/hr, 5 mls/hr Piperacillin Sod/Tazobactam (Sod 3.375 gm/ Sodium Chloride) 50 mls @ 100 mls/hr IV Q6H [facility] Last Admin: 02/20/22 12:30 Dose: 100 mls/hr Vancomycin HCl (Vancomycin/Ns) 2,000 mg in 520 mls @ 260 mls/hr IV ONCE ONE Stop: 02/20/22 13:39 Last Admin: 02/20/22 12:25 Dose: 260 mls/hr Vancomycin HCl 500 mg/ Sodium (Chloride) 110 mls @ 110 mls/hr IV Q24H [facility] Insulin Human Lispro (Insulin Lispro 100 Unit/Ml 3 Ml Vial) 0 unit SUBCUT Q6H [facility]; Protocol Last Admin: 02/20/22 12:10 Dose: Not Given Metoprolol Tartrate (Metoprolol Tartrate 50 Mg Tablet) 50 mg PO TID [facility]; Protocol Last Admin: 02/20/22 08:16 Dose: 50 mg Omeprazole (Omeprazole 20 Mg/10 Ml Susp.Recon) 40 mg G-TUBE DAILY@0630 [facility] Last Admin: 02/20/22 05:40 Dose: 40 mg Pharmacy Consult (Consult Rx Vancomycin Dosing) 1 each MISCELLANE DAILY PRN PRN Reason: Consult order Home Medications Medication Instructions Recorded Confirmed Last Taken Type albuterol sulfate 90 mcg/actuation 2 puff inhalation Q6H PRN 02/18/22 02/18/22 Unknown History aerosol inhaler (Ventolin HFA) Respiratory Distress aspirin 81 mg tablet,delayed 81 mg PO DAILY 02/18/22 02/18/22 Unknown History release atorvastatin 40 mg tablet 40 mg PO BEDTIME 02/18/22 02/18/22 Unknown History calcitriol 0.25 mcg capsule 0.25 mcg PO Q2D@1000 02/18/22 02/18/22 Unknown History clopidogrel 75 mg tablet 75 mg PO DAILY 02/18/22 02/18/22 Unknown History docusate sodium 100 mg capsule 100 mg PO BID 02/18/22 02/18/22 Unknown History ferrous sulfate 324 mg (65 mg 324 mg PO DAILY 02/18/22 02/18/22 Unknown History iron) tablet,delayed release fluticasone furoate 100 1 inh inhalation DAILY 02/18/22 02/18/22 Unknown History mcg-vilanterol 25 mcg/dose inhalation powder (Breo Ellipta) furosemide 40 mg tablet 40 mg PO DAILY 02/18/22 02/18/22 Unknown History gabapentin 300 mg capsule 300 mg PO DAILY 02/18/22 02/18/22 Unknown History gabapentin 600 mg tablet 600 mg PO BEDTIME 02/18/22 02/18/22 Unknown History levothyroxine 125 mcg tablet 125 mcg PO DAILY 02/18/22 02/18/22 Unknown History losartan 50 mg tablet 50 mg PO DAILY 02/18/22 02/18/22 Unknown History metoprolol tartrate 25 mg tablet 25 mg PO TID 02/18/22 02/18/22 Unknown History mirabegron 25 mg tablet,extended 25 mg PO DAILY 02/18/22 02/18/22 Unknown History release 24 hr (Myrbetriq) pantoprazole 40 mg tablet,delayed 40 mg PO DAILY 02/18/22 02/18/22 Unknown History release sennosides 8.6 mg tablet (senna) 17.2 mg PO BEDTIME 02/18/22 02/18/22 Unknown History tiotropium bromide 18 mcg capsule 1 cap inhalation DAILY 02/18/22 02/18/22 Unknown History with inhalation device (Spiriva with HandiHaler) Physical Exam Vital Signs: Last Vital Signs Temp 100.6 F H 02/20/22 12:00 Pulse 94 02/20/22 12:00 Resp 23 H 02/20/22 12:00 BP 116/63 02/20/22 12:00 Pulse Ox 93 02/20/22 12:00 O2 Del Method 02/20/22 12:00 FiO2 50 02/20/22 12:00 BMI result Body Mass Index 39.9 Const Other: Intubated. Sedated. Chest Chest palpation & inspection: normal inspection of the chest Resp Other: Lung auscultation revealed relatively clear breath sounds. Cardio Other: JVP hard to assess. No murmurs noted. Regular and tachycardic. Rate: regular rate GI Other: Obese. Soft. No fluid wave. Other: Bryant in place with CYU Extrem Other: No peripheral pitting edema Results Lab Results Result Diagrams: 02/20/22 05:12 02/20/22 05:12 Lab results: Chemistry 02/18/22 02/18/22 02/19/22 14:10 19:14 05:25 Sodium 134 L 138 137 Potassium 5.4 H 5.4 H 4.7 Carbon Dioxide 21 L 26 23 BUN 43 H 49 H 53 H Creatinine 1.93 H 2.41 H 2.86 H Calcium 8.5 8.1 L 7.8 L Phosphorus 2.7 2.7 02/20/22 02/20/22 05:12 05:12 Sodium 140 140 Potassium 4.8 4.8 Carbon Dioxide 21 L 21 L BUN 60 H 61 H Creatinine 3.28 H 3.26 H Calcium 7.2 L D 7.4 L Phosphorus 3.9 Hematology 02/18/22 02/18/22 02/19/22 14:28 19:14 05:25 WBC 16.9 H 15.6 H 15.8 H Hgb 10.3 L 9.3 L 9.1 L Plt Count 220 204 211 02/20/22 02/20/22 05:12 05:12 WBC 20.3 H 19.8 H Hgb 10.6 L 10.5 L Plt Count 296 D 291 Urinalysis 02/18/22 15:52 Urine Color Dark Yellow Urine Appearance Turbid Urine pH 5.0 Ur Specific [place] 1.020 Urine Protein 100 (2+) H Urine Glucose (UA) Negative Urine Ketones Negative Urine Blood Moderate (2+) H Urine Nitrite Negative Ur Leukocyte Esterase Large (3+) H Urine RBC 0-2 Urine WBC >50 H Ur Squamous Epith Cells 3-5 Hyaline Casts 6-10 Assessment and Plan (1) Congestive heart failure: Qualifiers: Heart failure chronicity: acute Status: Acute (2) Respiratory failure: Qualifiers: Chronicity: acute Respiratory failure complication: hypoxia Qualified Code(s): J96.01 - Acute respiratory failure with hypoxia Status: Acute (3) KENJI (acute kidney injury): Status: Acute (4) Stage 3a chronic kidney disease (CKD): Status: Acute Plan Ms. Shanon Stewart is a 76-year-old female with CKD stage IIIa (BL Cr 1.3mg/dL) 2/2 left renal atrophy and yuko-vascular disease (followed by Dr Hi), emphysema (O2 dependent), HFpEF, Hypothyroidism, A. fib (no anticoagulated), HTN who presented with 3 days worth of shortness of breath and weakness with an increasing home O2 requirement. Course complicated by acute hypoxic respiratory failure, AGMA, Renal Failure, and volume overload. 1. Non-oliguric KENJI on CKD stage IIIa BL Cr 1.3mg/dL, in the setting of known left renal atrophy and chronic yuko-vascular disease. KENJI now with Cr 1.9 -> 3.26mg/dL in the setting of hemodynamic instability, volume overload. Etiologies of KENJI: - Hemodynamic stress, hypoperfusion in the setting of Type 1 Cardiorenal syndrome VS. Nephrosarca in the setting of venous congestion. U/A with hyaline casts in abundance suggesting a hemodynamic KENJI - ATN is possible and can be precipitated by prolonged hypoperfusion. However at this time her urine sediment is more hyaline than granular casts - Glomerular disease needs to be thought about. With volume overload ?Nephrotic vs Nephritic syndromes. - Interstitial disease seems unlikely - Obstruction ruled out Plan: - c/w Lasix 10mg /hr given the ECHO / Chest imaging findings - sequential nephron blockade with Acetazolamide 500mg IV BID - renal panel BID to supplements lytes - C3, C4 ordered - SPEP, Immunofix, [place]/Lambda ordered for infiltrating disease - TP/Cr and ALb/cr to work up nephrotic process - ANCA vasculitis panel (low threshold) but with hematuria and renal failure good to work up - no need for POST ADOPTION COORDINATOR yet, but if UOP were to become refractory she will need ultrafiltration. Leonidas Richards MD [facility] Procedures Date of Service Date of Service: 02/20/22
[2022-02-20 13:48] LABS: Creatinine Urine 24.94 mg/dL; Microalbum/Creatinine Ratio Ur 120.2 ug/mg cr; Total Protein Urine Random 16 mg/dL (<12)
[2022-02-20 14:15] LABS: EOS Counted 0 CELLS; WBC, Counted 100 CELLS
[2022-02-20 14:16] LABS: EOS QC POS YES; EOS Stain Quality OK YES
[2022-02-20] MEDS: Furosemide 200 MG in 0.9 % Sodium Chloride 80 ML IVCONT (17:50)
[2022-02-20] MEDS: Rocuronium Bromide 50 MG/5 ML VIAL IVPUSH (17:56)
[2022-02-20] MEDS: Albuterol/Iprat 2.5/0.5MG 3 ML AMPUL.NEB INHALE (19:00)
[2022-02-20] MEDS: Sodium Bicarbonate 8.4% 50 MEQ/50 ML VIAL 150 MEQ IVPUSH (19:27)
--- NOTE | 2022-02-20 19:30 | PC.NURSE ---
PATIENT TAKEN TO ME FOR SCAN PATIENT DESAT TO 70S, MANUALLY BAGGED BY RT AND THIS RN DURING DURATION OF SCAN MD NOTIFIED VIA TELEPHONE AND PA ARRIVED BEDSIDE ONCOMING RN GIVEN REPORT BEDSIDE
[2022-02-20 19:31] LABS: MANUAL DIFF FLAG NO
[2022-02-20] MEDS: Acetaminophen Oral Liquid 650 MG/20.3 ML SOLUTION 975 MG PO (19:31)
[2022-02-20 19:34] LABS: Basophils Absolute Auto 0.1 X10*3/uL (0.0-0.2); Basophils Percent Auto 0.3 % (0-2); Eosinophils Absolute Auto 0.1 X10*3/uL (0.0-0.4); Eosinophils Percent Auto 0.3 % (0-4); Hematocrit 31.6 % (37.0-47.0); Hemoglobin 9.9 g/dl (12.0-16.0); Imm Gran Abs Auto 0.42 X10*3/uL (0.00-0.03); Imm Gran Pct Auto 2.2 % (0.0-0.4); Lymphocytes Absolute Auto 1.1 X10*3/uL (1.2-4.9); Lymphocytes Percent Auto 5.8 % (20-40); Mean Corpuscular HGB Conc 31.3 g/dl (31.0-35.0); Mean Corpuscular Hemoglobin 28.7 pg (27.0-33.0); Mean Corpuscular Volume 91.6 fL (80.0-98.0); Mean Platelet Volume 11.5 fL (9.4-12.3); Monocytes Absolute Auto 1.1 X10*3/uL (0.1-1.2); Monocytes Percent Auto 5.8 % (2-11); NRBC Pct Auto 0.4 /100WBC (0.0-0.2); Neutrophils Absolute Auto 16.1 x10*3/uL (2.0-8.3); Neutrophils Percent Auto 85.6 % (45-73); Platelet Count 305 X10*3/uL (160-400); Red Blood Count 3.45 X10*6/uL (4.20-5.50); Red Cell Distribution Width 15.8 % (11.0-16.0); White Blood Count 18.8 X10*3/uL (4.8-10.8)
[2022-02-20 19:55] LABS: Anion Gap 22 (12-20); Blood Urea Nitrogen 61 mg/dL (9-16); Calcium 7.3 mg/dL (8.4-10.2); Carbon Dioxide 22 mmol/L (22-29); Chloride 102 mmol/L (96-108); Creatinine Clr Calc Pharmacy 21.1; Estimated Glomerular Filt Rate 14; Glucose Random 160 mg/dL (60-115); Potassium 4.3 mmol/L (3.3-5.1); Sodium 142 mmol/L (135-145)
[2022-02-20 20:03] LABS: B Type Natriuretic Peptide 115 pg/mL (<100); Troponin-I High Sensitivity 25.7 ng/L (<3.5-17.0)
[2022-02-20] MEDS: Rocuronium Bromide 50 MG/5 ML VIAL 20 MG IVPUSH (20:18)
--- NOTE | 2022-02-20 22:13 | PM.CCPN ---
Subjective Subjective Date of Service: 02/20/22 Interval History: Clinical Precedent to this date: ?Please see progress note from Dr. Kaufman.? From this morning for details. Subjective:? Today pt at 19:00, was notified by nursing personnel the patient had just come back from nuclear scan and the patient became hypoxic while on the vent with an O2 sat in the mid 70s to low 80s and currently is being ventilated with an Ambu bag.? The patient has been placed on 80 higher Lasix drip at 10 milligrams/hour and is finally producing urine.? Patient has been suction without any improvement. Focused Review of systems:? Unable to obtain Objective VS: General : sedated, intubated, ET T at the lip a 23 cm. Skin:? Intact, no lesions or rash no evidence of mottling or cyanosis Cardiac:? Clear S1-S2, no murmurs rubs or gallops. Pulmonary:? Diminished lung sounds with minor crackles at the bases right more than left.? Minimal expiratory wheeze.? No wheezes. Abdomen:? Protuberant, positive bowel sounds in all 4 quadrants.? Soft Vascular:? 2+ pulses upper and lower extremities distally. SIGNIFICANT LABORATORY DATA:? From this morning was reviewed.? ABG to be obtained. ASSESSMENT : 1.?Hypoxic respiratory failure which is multifactorial, but mostly from fluid overload, I do believe at this point is simply related to positioning as the patient was laid flat for the study. 2.?Breath sounds are equal, this is unlikely to be related to a pneumothorax. 3. S like metabolic acidosis with compensation PLAN OF CARE: Full set of laboratories including an ABG were ordered.? I did review the ABG, the patient does seem to be quite hypoxic barnes pH of 7.34, pCO2 31, PO2 41, HC03 17. It seems that the PO2 is low because she was being ventilated b.i.d. Ambu-bag, bicarb is low and will be replaced.? I will place her back on the ventilator and will increase the PEEP, set the rate at 12, in addition the patient appears to be somewhat wake, propofol 50 mg x 2 doses were given and the patient still not having adequate oxygenation although is much better at at 86%. Rocuronium 20 mg IV x1 given with automatic response bring in the O2 sat 90%, will start titrating the FiO2 slowly with a goal of 90-92%. At this point I will not get an x-ray for is unlikely that this is related to a pneumothorax.? Will repeat the gas at midnight. Subsequent lab work was reviewed, white count 18.8 which is slightly lower, H&H 9.9 and 31.6, (stable), electrolytes are within normal limits, creatinine has decreased to 3.18 from (3.26).? BNP 115, albumin 2.9, replacement ordered. Patient's blood pressure is adequate with a map of 80, will start titrating Levophed even more. Critical care time used for critical evaluation of this patient, diagnosis, treatment and coordination of care, review her records and documentation TOTAL CRITICAL CARE TIME 60MIN . discussion and coordination with consultants, completely separate from any procedures performed. Patient's care was discussed in detail with Dr. Kaufman.? He is aware of all the above as well as the plan of care for this patient.? Critical Care Time (minutes): 60 Physical Exam Vital Signs: Vital Signs: Last Vital Signs Temp 100.6 F H 02/20/22 21:00 Pulse 103 H 02/20/22 21:00 Resp 18 02/20/22 21:00 BP 113/63 02/20/22 21:00 Pulse Ox 93 02/20/22 21:00 O2 Del Method 02/20/22 21:00 FiO2 90 02/20/22 21:00 BMI result Body Mass Index 39.9 Objective Data Labs CBC & Chem 7: 02/20/22 19:20 02/20/22 19:20 Labs: Laboratory Results - last 24 hr 02/20/22 02/20/22 02/20/22 00:03 05:12 05:12 WBC 20.3 H RBC 3.69 L Hgb 10.6 L Hct 33.8 L MCV 91.6 MCH 28.7 MCHC 31.4 RDW 15.4 Plt Count 296 D MPV 11.4 Immature Gran % (Auto) Neut % (Auto) Lymph % (Auto) [place] % (Auto) Eos % (Auto) Baso % (Auto) Lymph # (Auto) [place] # (Auto) Eos # (Auto) Baso # (Auto) Abs Immat Gran (auto) Absolute Neuts (auto) Absolute Nucleated RBC 0.060 H Nucleated RBC % (auto) 0.3 H D-Dimer High Sensitivty 1638 O2 Saturation ABG pH at Pt Temp ABG pCO2 at Pt Temp ABG pO2 at Pt Temp ABG HCO3 ABG Base Excess (Actual) VBG pH VBG pCO2 VBG pO2 VBG HCO3 VBG O2 Saturation VBG Base Excess Sodium Potassium Chloride Carbon Dioxide Anion Gap BUN Creatinine Estim Creat Clear Calc Estimated GFR POC Glucose 166 H Random Glucose Calcium Phosphorus Magnesium Total Bilirubin AST ALT Alkaline Phosphatase Troponin I High Sens B-Natriuretic Peptide Total Protein Albumin Urine Eosinophils % U Random Total Protein Urine Creatinine Urine Microalbumin Microalb/Creat Ratio 02/20/22 02/20/22 02/20/22 05:12 05:12 05:12 WBC 19.8 H RBC 3.64 L Hgb 10.5 L Hct 33.9 L MCV 93.1 MCH 28.8 MCHC 31.0 RDW 15.3 Plt Count 291 MPV 11.6 Immature Gran % (Auto) 2.5 H Neut % (Auto) 86.6 H Lymph % (Auto) 5.3 L [place] % (Auto) 5.0 Eos % (Auto) 0.2 Baso % (Auto) 0.4 Lymph # (Auto) 1.1 L [place] # (Auto) 1.0 Eos # (Auto) 0.0 Baso # (Auto) 0.1 Abs Immat Gran (auto) 0.49 H Absolute Neuts (auto) 17.2 H Absolute Nucleated RBC 0.060 H Nucleated RBC % (auto) 0.3 H D-Dimer High Sensitivty O2 Saturation ABG pH at Pt Temp ABG pCO2 at Pt Temp ABG pO2 at Pt Temp ABG HCO3 ABG Base Excess (Actual) VBG pH VBG pCO2 VBG pO2 VBG HCO3 VBG O2 Saturation VBG Base Excess Sodium 140 140 Potassium 4.8 4.8 Chloride 103 103 Carbon Dioxide 21 L 21 L Anion Gap 21 H 21 H BUN 60 H 61 H Creatinine 3.28 H 3.26 H Estim Creat Clear Calc 20.4 20.6 Estimated GFR 14 14 POC Glucose Random Glucose 172 H 173 H Calcium 7.2 L D 7.4 L Phosphorus 3.9 Magnesium 2.1 Total Bilirubin 0.7 0.8 AST 63 H 64 H ALT 30 31 Alkaline Phosphatase 144 H D 143 H Troponin I High Sens B-Natriuretic Peptide Total Protein 5.3 L 5.3 L Albumin 2.9 L 2.9 L Urine Eosinophils % U Random Total Protein Urine Creatinine Urine Microalbumin Microalb/Creat Ratio 02/20/22 02/20/22 02/20/22 05:20 05:35 12:03 WBC RBC Hgb Hct MCV MCH MCHC RDW Plt Count MPV Immature Gran % (Auto) Neut % (Auto) Lymph % (Auto) [place] % (Auto) Eos % (Auto) Baso % (Auto) Lymph # (Auto) [place] # (Auto) Eos # (Auto) Baso # (Auto) Abs Immat Gran (auto) Absolute Neuts (auto) Absolute Nucleated RBC Nucleated RBC % (auto) D-Dimer High Sensitivty O2 Saturation ABG pH at Pt Temp ABG pCO2 at Pt Temp ABG pO2 at Pt Temp ABG HCO3 ABG Base Excess (Actual) VBG pH 7.38 VBG pCO2 30 VBG pO2 43 VBG HCO3 18 L VBG O2 Saturation 67.0 VBG Base Excess -5.7 Sodium Potassium Chloride Carbon Dioxide Anion Gap BUN Creatinine Estim Creat Clear Calc Estimated GFR POC Glucose 152 H 145 H Random Glucose Calcium Phosphorus Magnesium Total Bilirubin AST ALT Alkaline Phosphatase Troponin I High Sens B-Natriuretic Peptide Total Protein Albumin Urine Eosinophils % U Random Total Protein Urine Creatinine Urine Microalbumin Microalb/Creat Ratio 02/20/22 02/20/22 02/20/22 13:20 13:20 17:29 WBC RBC Hgb Hct MCV MCH MCHC RDW Plt Count MPV Immature Gran % (Auto) Neut % (Auto) Lymph % (Auto) [place] % (Auto) Eos % (Auto) Baso % (Auto) Lymph # (Auto) [place] # (Auto) Eos # (Auto) Baso # (Auto) Abs Immat Gran (auto) Absolute Neuts (auto) Absolute Nucleated RBC Nucleated RBC % (auto) D-Dimer High Sensitivty O2 Saturation ABG pH at Pt Temp ABG pCO2 at Pt Temp ABG pO2 at Pt Temp ABG HCO3 ABG Base Excess (Actual) VBG pH VBG pCO2 VBG pO2 VBG HCO3 VBG O2 Saturation VBG Base Excess Sodium Potassium Chloride Carbon Dioxide Anion Gap BUN Creatinine Estim Creat Clear Calc Estimated GFR POC Glucose 128 H Random Glucose Calcium Phosphorus Magnesium Total Bilirubin AST ALT Alkaline Phosphatase Troponin I High Sens B-Natriuretic Peptide Total Protein Albumin Urine Eosinophils % 0.0 U Random Total Protein 16 H Urine Creatinine 24.94 Urine Microalbumin 30.0 Microalb/Creat Ratio 120.2 02/20/22 02/20/22 02/20/22 19:10 19:20 19:20 WBC 18.8 H RBC 3.45 L Hgb 9.9 L Hct 31.6 L MCV 91.6 MCH 28.7 MCHC 31.3 RDW 15.8 Plt Count 305 MPV 11.5 Immature Gran % (Auto) 2.2 H Neut % (Auto) 85.6 H Lymph % (Auto) 5.8 L [place] % (Auto) 5.8 Eos % (Auto) 0.3 Baso % (Auto) 0.3 Lymph # (Auto) 1.1 L [place] # (Auto) 1.1 Eos # (Auto) 0.1 Baso # (Auto) 0.1 Abs Immat Gran (auto) 0.42 H Absolute Neuts (auto) 16.1 H Absolute Nucleated RBC 0.080 H Nucleated RBC % (auto) 0.4 H D-Dimer High Sensitivty O2 Saturation 58.0 ABG pH at Pt Temp 7.34 L ABG pCO2 at Pt Temp 31 L ABG pO2 at Pt Temp 41 L* ABG HCO3 17 L ABG Base Excess (Actual) -6.9 VBG pH VBG pCO2 VBG pO2 VBG HCO3 VBG O2 Saturation VBG Base Excess Sodium 142 Potassium 4.3 Chloride 102 Carbon Dioxide 22 Anion Gap 22 H BUN 61 H Creatinine 3.18 H Estim Creat Clear Calc 21.1 Estimated GFR 14 POC Glucose Random Glucose 160 H Calcium 7.3 L Phosphorus Magnesium Total Bilirubin AST ALT Alkaline Phosphatase Troponin I High Sens B-Natriuretic Peptide Total Protein Albumin Urine Eosinophils % U Random Total Protein Urine Creatinine Urine Microalbumin Microalb/Creat Ratio 02/20/22 19:20 WBC RBC Hgb Hct MCV MCH MCHC RDW Plt Count MPV Immature Gran % (Auto) Neut % (Auto) Lymph % (Auto) [place] % (Auto) Eos % (Auto) Baso % (Auto) Lymph # (Auto) [place] # (Auto) Eos # (Auto) Baso # (Auto) Abs Immat Gran (auto) Absolute Neuts (auto) Absolute Nucleated RBC Nucleated RBC % (auto) D-Dimer High Sensitivty O2 Saturation ABG pH at Pt Temp ABG pCO2 at Pt Temp ABG pO2 at Pt Temp ABG HCO3 ABG Base Excess (Actual) VBG pH VBG pCO2 VBG pO2 VBG HCO3 VBG O2 Saturation VBG Base Excess Sodium Potassium Chloride Carbon Dioxide Anion Gap BUN Creatinine Estim Creat Clear Calc Estimated GFR POC Glucose Random Glucose Calcium Phosphorus Magnesium Total Bilirubin AST ALT Alkaline Phosphatase Troponin I High Sens 25.7 H D B-Natriuretic Peptide 115 H Total Protein Albumin Urine Eosinophils % U Random Total Protein Urine Creatinine Urine Microalbumin Microalb/Creat Ratio Microbiology Microbiology Results: Microbiology 02/18/22 15:05 Blood - Venous Blood Culture - Preliminary No growth after 48 hours. 02/18/22 15:05 Blood - Venous Blood Culture - Preliminary No growth after 48 hours. 02/19/22 09:47 Sputum - Suctioned Gram Stain - Final 02/19/22 09:47 Sputum - Suctioned Sputum Culture - Preliminary Culture in progress. 02/18/22 Unknown Urine clean catch - Urine smith top Urine Culture - Final Escherichia coli Quality Stroke Does the patient have a stroke diagnosis?: No VTE Prior VTE?: No VTE Risk Level:: Medical - moderate - high VTE Device Contraindication: N/A - Device Ordered VTE Drug Contraindication: N/A - Med Ordered
[2022-02-21] VITALS (38 sets, daily range): BP systolic 74–131; BP diastolic 38–76; PULSE 66–97; RESP 18–85; TEMP 35–38.2; O2SAT 88–97; BMI 39.4
[2022-02-21] MEDS: dilTIAZem HCL 125 MG in 0.9 % Sodium Chloride 100 ML 10 MG IVCONT
[2022-02-21] MEDS: Piperacillin Sodium/Tazobactam 3.375 GM in 0.9 % Sodium Chloride 50 ML IV ×5 (00:01→23:52)
[2022-02-21] MEDS: Heparin Sodium,Porcine 5,000 UNIT/ML VIAL 5000 UNIT SUBCUT ×3 (05:11→20:43)
[2022-02-21] MEDS: propofoL 1,000 MG/100 ML VIAL 14.15 MG IVCONT ×5 (05:17→23:53)
[2022-02-21 05:52] LABS: Hematocrit 28.8 % (37.0-47.0); Hemoglobin 8.8 g/dl (12.0-16.0); Mean Corpuscular HGB Conc 30.6 g/dl (31.0-35.0); Mean Corpuscular Hemoglobin 28.1 pg (27.0-33.0); NRBC Pct Auto 0.4 /100WBC (0.0-0.2); Platelet Count 261 X10*3/uL (160-400); Red Blood Count 3.13 X10*6/uL (4.20-5.50); Red Cell Distribution Width 15.9 % (11.0-16.0); White Blood Count 14.8 X10*3/uL (4.8-10.8)
[2022-02-21 06:07] LABS: Creatinine Clr Calc Pharmacy 19.3; Estimated Glomerular Filt Rate 13
[2022-02-21 06:12] LABS: Anion Gap 21 (12-20); Blood Urea Nitrogen 70 mg/dL (9-16); Carbon Dioxide 28 mmol/L (22-29); Chloride 101 mmol/L (96-108); Creatinine Clr Calc Pharmacy 18.8; Estimated Glomerular Filt Rate 12; Glucose Random 143 mg/dL (60-115); Magnesium 2.4 mg/dL (1.6-2.6); Potassium 4.2 mmol/L (3.3-5.1); Sodium 146 mmol/L (135-145)
[2022-02-21 06:25] LABS: Venous Blood Gas Refer to POC result
[2022-02-21 07:37] LABS: Anion Gap 22 (12-20); Blood Urea Nitrogen 70 mg/dL (9-16); Calcium 6.9 mg/dL (8.4-10.2); Carbon Dioxide 27 mmol/L (22-29); Chloride 100 mmol/L (96-108); Creatinine Clr Calc Pharmacy 18.5; Estimated Glomerular Filt Rate 12; Glucose Fasting 138 mg/dL (60-99); Sodium 145 mmol/L (135-145)
[2022-02-21] MEDS: Chlorhexidine Gluc Oral Rinse 15 ML MOUTHWASH BUCCAL ×3 (10:22→20:43)
[2022-02-21] MEDS: Metoprolol Tartrate 50 MG TABLET PO ×3 (10:22→20:43)
--- NOTE | 2022-02-21 11:00 | PM.CCPN ---
Subjective Subjective Date of Service: 02/21/22 Interval History: Mrs. Stewart was admitted to the ICU on Feb 18 with acute respiratory failure. The patient is a 76-year-old female w PMHx of supermorbid obesity, COPD with 60 pack-year smoking history, quit in October of last year, oxygen dependent 2 L at rest and 3 L with exertion; pneumonia, CHF, hypothyroidism, atrial fibrillation not on anticoagulation, CKD stage 3, peripheral neuropathy, hypertension, GERD, leg edema. Part of history was obtained from a [facility] discharge note of 10/28/21 for hospitalization for acute on chronic respiratory failure with HFpEF.? Admitting serum bicarb was 32 (so not likely a signif CO2 retainer.)? Chest CTA at that time was negative for PE.? Duplex scan negative for DVT.? Creatinine bumped to 1.65 at discharge, thought secondary to IV contrast. I talked with Dr. Eastman (one of her shift mgr's) yesterday.? In 2020, she presented to [facility] with a rectus sheath hematoma, secondary to anticoagulation for atrial fibrillation.? At that time, she was taken off anticoagulation, and on 09/10/21 a Watchman device was inserted by Dr. Agustin.? Since then, she has had at least 2 TEEs for follow-up.? Last DANGELO was in September of 2021 which showed that the left atrial appendage was occluded.? LV ejection fraction was 60%, RV was normal size with normal function.? There was 1+ MR, 1+ TR, and the tricuspid CWD gradient was 26 mm.? Creatinine was 1.1. Social Hx:? The patient was living with her up until he in 2009.? Since then, the patient has been living with a variety of different family members, in different family situations.? For the last year, the patient was living with her daughter Haley De Jesus ([phone]) who is the healthcare proxy.? According to Haley, who I spoke with on the phone today for about 20 minutes, the patient has had long-term problems with hoarding, impulsiveness, poor judgment, lack of self-care (e.g. not bathing for a year), compulsive eating, bingeing (eg. eating 60 lbs of sugar over a weekend), etc.? She?s put on 30 lbs in the last year.? She leaves the fire on the stove all night.? She hasn?t yet been diagnosed with dementia by the any of the physicians she has seen. The situation at Haley?s house finally got to be too much, and too unsafe, therefore Haley moved her mother into [facility] about a week ago. HISTORY OF PRESENT ILLNESS:? The patient was BIBA to the ED on Feb 18 w c/o of SOB and weakness x 3 days, incontinence of urine.? The patient?s daughter saw her, noted she was struggling to breathe, so called EMS. On arrival to the ED, the patient was in obvious respiratory distress.? She was intubated immediately.? She was afebrile and normotensive.? Workup significant for white count 16, Hgb 10, lactic acid of 2.3, troponin of 73 and flat, BNP of 222.? ABG 7.34/35/82/-5.? CXR showed ? enlarged right heart, bilateral patchy mid to lower lung opacities with small pleural effusions.? COVID negative.? U/A showed gross infection. The patient was given 1 L of IV fluids, Rocephin, and Zithromax.? The patient was then given Lasix 40 mg because of suspicion for CHF.? Noncontrast chest CT showed a small posterior lower lobe area of consolidation.? Head CT showed small chronic infarcts in the right frontal, parietal and occipital lobes and chronic lacunar infarct in the right caudate head. The patient was then transferred to the ICU.? A CVL was placed.? In the ICU, the patient spiked a temperature to > 103.5.? She became hypotensive, but her repeat lactate was normal.? The patient was treated for acute sepsis due to community-acquired pneumonia and UTI, w ceftriaxone and Zithromax.? She was volume resuscitated.? She was given diltiazem drip for AFib with RVR.? DDimer was elevated.? LE venous duplex scan negative for DVT. ECHO done 02/19, interpreted by me:? Normal LV cavity size and fxn.? RV slightly dilated.? No AI or .? Trace MR.? 2+ TR with CWD measuring 3.0 m/sec (gradient 36mm).? IVC measured 2.5 cm.? RVSP 51mm.? Despite vol resuscitation, her creat rebeca progressively to 3.2 yesterday.? Bec of that and the echo, I started her on a Lasix drip 5mg/hr and yesterday increased it to 10mg/hr and gave her Diuril.? Last night she went for perfusion scan which showed no segmental perfusion defects to suggest pulmonary embolus.? Bec her WBC was going up, I changed her Abx yesterday from ceftriax and Zithromax to vanco and Zosysn. After she got back to the ICU from her perfusion scan, she was significantly hypoxemic, thought secondary to lying flat during the scan.? I took a while for her sat to come back, but ultimately she got back down to 50% FiO2. ?This morning she became more hypoxemic bec of a mucus plug, had to go up on her FiO2. Currently mod sedated on propofol 20ug.? Also on Levophed 0.07ug, Diltiazem 5mg + metoprolol 50 mg TID.? HR 68, Afib 86, Afib, on diltiazem 5 mg.? BP 125/62.? On AC 16/400/70%/+12, RR 20, Ve 7.67L, PIP 34cm, ETCO2 28mm, Sat 92%.? CVBG 7.46/28/-2.? Afebrile.? No JVD.? Chest is CTA with normal exp phase. ?Heart tones soft, I heard no murmur or gallops.? Abdomen is obese and benign.? She has no peripheral or central edema.? Skin on her legs and feet is definitely more wrinkled than yesterday. LABORATORY DATA:? Below.? Notably, WBC is down to 14.? BUN/creatinine up to 70/3.5 IMPRESSION: 1. Acute on chronic hypoxemic respiratory failure.? Unclear etiology:? Heart failure vs sepsis vs rapid afib.? Her HR is now down, so the latter is ruled out.? I don?t think that the small infiltrate on CT in her posterior left lower lung is the cause.? No evidence that she?s a CO2 retainer.? PE was adequately ruled out.? Bottom line, at this point, we don?t have an eitiology. 2. HFpEF.? Diastolic failure and likely right heart failure.? CXR looks very convincing that she?s wet, as was the echo.? But she was convincingly diuresed and her renal indices got worse and oxygenation is not improved, nor is her CXR.? Discussed with Dr. Parikh.? He thinks that convincingly rules out heart failure. 3. Small left pulmonary infiltrate.? I?m dubious that this is a real clinical ?pneumonia?, but can?t rule it out.? Bec her WBC was going up, I changed her abx to vanco and Zosyn.? WBC today is down. 4. ID:? Acute sepsis due to UTI.? On adequate abx. 5. KENJI.? Possible etiologies include heart failure vs sepsis vs hypovolemia, vs intrinsic kidney disease.? On admission, she was given volume, and her renal indices rebeca.? Then she was diuresed, and her renal indices rebeca further.? And she doesn?t seem to have heart failure, as noted above.? So etiology is still unclear.? Renal is following, w/u for intrinsic renal disease. 6. Atrial fibrillation with rapid ventricular response.? On Diltiazem gtt, plus her home dose of metoprolol. 7. Altered mental status on admission.? Metabolic encephalopathy.? Possible etiologies include sepsis, acute respiratory failure, and the gabapentin she was on while her renal indices were rising. 8. Normocytic anemia.? Likely ACD. 9. Probable at least mild PCM. 10. In my opinion, is very likely from the history that the patient has dementia, although it is certainly possible that the behavior above is a psychological abnormality rather than dementia. 11. Laxation.? Started lactulose. 12. Nutrition.? Started Promote TF. Critical Care Time (minutes): 60 Physical Exam Vital Signs: Vital Signs: Last Vital Signs Temp 99.7 F 02/21/22 08:00 Pulse 86 02/21/22 10:00 Resp 25 H 02/21/22 10:00 BP 108/68 02/21/22 10:00 Pulse Ox 90 L 02/21/22 10:00 O2 Del Method 02/21/22 10:00 FiO2 50 02/21/22 10:00 BMI result Body Mass Index 39.4 Objective Data Labs CBC & Chem 7: 02/21/22 05:20 02/21/22 07:06 Labs: Laboratory Results - last 24 hr 10/01/0402/20/22 02/20/22 12:03 13:20 13:20 WBC RBC Hgb Hct MCV MCH MCHC RDW Plt Count MPV Immature Gran % (Auto) Neut % (Auto) Lymph % (Auto) [place] % (Auto) Eos % (Auto) Baso % (Auto) Lymph # (Auto) [place] # (Auto) Eos # (Auto) Baso # (Auto) Abs Immat Gran (auto) Absolute Neuts (auto) Absolute Nucleated RBC Nucleated RBC % (auto) O2 Saturation ABG pH at Pt Temp ABG pCO2 at Pt Temp ABG pO2 at Pt Temp ABG HCO3 ABG Base Excess (Actual) VBG pH VBG pCO2 VBG pO2 VBG HCO3 VBG O2 Saturation VBG Base Excess Sodium Potassium Chloride Carbon Dioxide Anion Gap BUN Creatinine Estim Creat Clear Calc Estimated GFR POC Glucose 145 H Random Glucose Fasting Glucose Calcium Phosphorus Magnesium Troponin I High Sens B-Natriuretic Peptide Urine Eosinophils % 0.0 U Random Total Protein 16 H Urine Creatinine 24.94 Urine Microalbumin 30.0 Microalb/Creat Ratio 120.2 02/20/22 02/20/22 02/20/22 17:29 19:10 19:20 WBC 18.8 H RBC 3.45 L Hgb 9.9 L Hct 31.6 L MCV 91.6 MCH 28.7 MCHC 31.3 RDW 15.8 Plt Count 305 MPV 11.5 Immature Gran % (Auto) 2.2 H Neut % (Auto) 85.6 H Lymph % (Auto) 5.8 L [place] % (Auto) 5.8 Eos % (Auto) 0.3 Baso % (Auto) 0.3 Lymph # (Auto) 1.1 L [place] # (Auto) 1.1 Eos # (Auto) 0.1 Baso # (Auto) 0.1 Abs Immat Gran (auto) 0.42 H Absolute Neuts (auto) 16.1 H Absolute Nucleated RBC 0.080 H Nucleated RBC % (auto) 0.4 H O2 Saturation 58.0 ABG pH at Pt Temp 7.34 L ABG pCO2 at Pt Temp 31 L ABG pO2 at Pt Temp 41 L* ABG HCO3 17 L ABG Base Excess (Actual) -6.9 VBG pH VBG pCO2 VBG pO2 VBG HCO3 VBG O2 Saturation VBG Base Excess Sodium Potassium Chloride Carbon Dioxide Anion Gap BUN Creatinine Estim Creat Clear Calc Estimated GFR POC Glucose 128 H Random Glucose Fasting Glucose Calcium Phosphorus Magnesium Troponin I High Sens B-Natriuretic Peptide Urine Eosinophils % U Random Total Protein Urine Creatinine Urine Microalbumin Microalb/Creat Ratio 02/20/22 02/20/22 02/20/22 19:20 19:20 23:46 WBC RBC Hgb Hct MCV MCH MCHC RDW Plt Count MPV Immature Gran % (Auto) Neut % (Auto) Lymph % (Auto) [place] % (Auto) Eos % (Auto) Baso % (Auto) Lymph # (Auto) [place] # (Auto) Eos # (Auto) Baso # (Auto) Abs Immat Gran (auto) Absolute Neuts (auto) Absolute Nucleated RBC Nucleated RBC % (auto) O2 Saturation ABG pH at Pt Temp ABG pCO2 at Pt Temp ABG pO2 at Pt Temp ABG HCO3 ABG Base Excess (Actual) VBG pH VBG pCO2 VBG pO2 VBG HCO3 VBG O2 Saturation VBG Base Excess Sodium 142 Potassium 4.3 Chloride 102 Carbon Dioxide 22 Anion Gap 22 H BUN 61 H Creatinine 3.18 H Estim Creat Clear Calc 21.1 Estimated GFR 14 POC Glucose 156 H Random Glucose 160 H Fasting Glucose Calcium 7.3 L Phosphorus Magnesium Troponin I High Sens 25.7 H D B-Natriuretic Peptide 115 H Urine Eosinophils % U Random Total Protein Urine Creatinine Urine Microalbumin Microalb/Creat Ratio 02/21/22 02/21/22 02/21/22 00:39 05:20 05:20 WBC 14.8 H RBC 3.13 L Hgb 8.8 L Hct 28.8 L MCV 92.0 MCH 28.1 MCHC 30.6 L RDW 15.9 Plt Count 261 MPV 12.0 Immature Gran % (Auto) Neut % (Auto) Lymph % (Auto) Dooly % (Auto) Eos % (Auto) Baso % (Auto) Lymph # (Auto) [place]y # (Auto) Eos # (Auto) Baso # (Auto) Abs Immat Gran (auto) Absolute Neuts (auto) Absolute Nucleated RBC 0.060 H Nucleated RBC % (auto) 0.4 H O2 Saturation ABG pH at Pt Temp ABG pCO2 at Pt Temp ABG pO2 at Pt Temp ABG HCO3 ABG Base Excess (Actual) VBG pH 7.42 VBG pCO2 32 VBG pO2 39 VBG HCO3 21 L VBG O2 Saturation 61.0 VBG Base Excess -2.4 Sodium Potassium Chloride Carbon Dioxide Anion Gap BUN Creatinine 3.47 H Estim Creat Clear Calc 19.3 Estimated GFR 13 POC Glucose Random Glucose Fasting Glucose Calcium Phosphorus Magnesium Troponin I High Sens B-Natriuretic Peptide Urine Eosinophils % U Random Total Protein Urine Creatinine Urine Microalbumin Microalb/Creat Ratio 02/21/22 02/21/22 02/21/22 05:20 05:27 05:36 WBC RBC Hgb Hct MCV MCH MCHC RDW Plt Count MPV Immature Gran % (Auto) Neut % (Auto) Lymph % (Auto) [place] % (Auto) Eos % (Auto) Baso % (Auto) Lymph # (Auto) [place] # (Auto) Eos # (Auto) Baso # (Auto) Abs Immat Gran (auto) Absolute Neuts (auto) Absolute Nucleated RBC Nucleated RBC % (auto) O2 Saturation ABG pH at Pt Temp ABG pCO2 at Pt Temp ABG pO2 at Pt Temp ABG HCO3 ABG Base Excess (Actual) VBG pH 7.46 H VBG pCO2 28 VBG pO2 42 VBG HCO3 20 L VBG O2 Saturation 68.0 VBG Base Excess -2.4 Sodium 146 H Potassium 4.2 Chloride 101 Carbon Dioxide 28 Anion Gap 21 H BUN 70 H Creatinine 3.57 H Estim Creat Clear Calc 18.8 Estimated GFR 12 POC Glucose 135 H Random Glucose 143 H Fasting Glucose Calcium 7.0 L Phosphorus 5.0 H Magnesium 2.4 Troponin I High Sens B-Natriuretic Peptide Urine Eosinophils % U Random Total Protein Urine Creatinine Urine Microalbumin Microalb/Creat Ratio 02/21/22 07:06 WBC RBC Hgb Hct MCV MCH MCHC RDW Plt Count MPV Immature Gran % (Auto) Neut % (Auto) Lymph % (Auto) [place] % (Auto) Eos % (Auto) Baso % (Auto) Lymph # (Auto) [place]y # (Auto) Eos # (Auto) Baso # (Auto) Abs Immat Gran (auto) Absolute Neuts (auto) Absolute Nucleated RBC Nucleated RBC % (auto) O2 Saturation ABG pH at Pt Temp ABG pCO2 at Pt Temp ABG pO2 at Pt Temp ABG HCO3 ABG Base Excess (Actual) VBG pH VBG pCO2 VBG pO2 VBG HCO3 VBG O2 Saturation VBG Base Excess Sodium 145 Potassium 4.0 Chloride 100 Carbon Dioxide 27 Anion Gap 22 H BUN 70 H Creatinine 3.58 H Estim Creat Clear Calc 18.5 Estimated GFR 12 POC Glucose Random Glucose Fasting Glucose 138 H Calcium 6.9 L Phosphorus Magnesium Troponin I High Sens B-Natriuretic Peptide Urine Eosinophils % U Random Total Protein Urine Creatinine Urine Microalbumin Microalb/Creat Ratio Microbiology Microbiology Results: Microbiology 02/19/22 09:47 Sputum - Suctioned Gram Stain - Final 02/19/22 09:47 Sputum - Suctioned Sputum Culture - Final 02/18/22 15:05 Blood - Venous Blood Culture - Preliminary No growth after 48 hours. 02/18/22 15:05 Blood - Venous Blood Culture - Preliminary No growth after 48 hours. 02/18/22 Unknown Urine clean catch - Urine smith top Urine Culture - Final Escherichia coli Quality Stroke Does the patient have a stroke diagnosis?: No VTE Prior VTE?: No VTE Risk Level:: Medical - moderate - high VTE Device Contraindication: N/A - Device Ordered VTE Drug Contraindication: N/A - Med Ordered Critical Care Time Critical Care Time (minutes): 60
[2022-02-21 11:30] LABS: Estimated Average Glucose 126 mg/dL
[2022-02-21] MEDS: Sodium Chloride 0.45 % 1,000 ML 500 ML IVCONT (11:30)
--- NOTE | 2022-02-21 11:31 | PM.PNNEP ---
Subjective Subjective Date of Service: 02/21/22 Interval history: Remains intubated on pressor. Net -3L on diuretics GFR worse, but non-oliguric ICU efforts transitioning towards resuscitation. Overall difficult to ascertain volume status and etiology of acute respiratory failure requiring impressive FIO2 70% and PEEP 12 V/Q scan low prob for PE Physical Exam Vital Signs: Vital Signs: Last Vital Signs Temp 99.7 F 02/21/22 08:00 Pulse 78 02/21/22 11:00 Resp 18 02/21/22 11:00 BP 112/67 02/21/22 11:20 Pulse Ox 92 02/21/22 11:00 O2 Del Method 02/21/22 11:00 FiO2 70 02/21/22 11:00 BMI result Body Mass Index 39.4 Const: Other: Intubated. Sedated. Chest: Chest palpation & inspection: normal inspection of the chest Resp: Other: Lung auscultation revealed relatively clear breath sounds. Cardio: Other: JVP hard to assess. No murmurs noted. Regular and tachycardic. Rate: regular rate GI: Other: Obese. Soft. No fluid wave. : Other: Bryant in place with CYU Extrem: Other: No peripheral pitting edema Objective Data Labs CBC & Chem 7: 02/21/22 05:20 02/21/22 07:06 Labs: Laboratory Results - last 24 hr 02/20/22 02/20/22 02/20/22 12:03 13:20 13:20 WBC RBC Hgb Hct MCV MCH MCHC RDW Plt Count MPV Immature Gran % (Auto) Neut % (Auto) Lymph % (Auto) Teller % (Auto) Eos % (Auto) Baso % (Auto) Lymph # (Auto) Teller # (Auto) Eos # (Auto) Baso # (Auto) Abs Immat Gran (auto) Absolute Neuts (auto) Absolute Nucleated RBC Nucleated RBC % (auto) O2 Saturation ABG pH at Pt Temp ABG pCO2 at Pt Temp ABG pO2 at Pt Temp ABG HCO3 ABG Base Excess (Actual) VBG pH VBG pCO2 VBG pO2 VBG HCO3 VBG O2 Saturation VBG Base Excess Sodium Potassium Chloride Carbon Dioxide Anion Gap BUN Creatinine Estim Creat Clear Calc Estimated GFR POC Glucose 145 H Random Glucose Fasting Glucose Estimat Average Glucose Hemoglobin A1c % Calcium Phosphorus Magnesium Troponin I High Sens B-Natriuretic Peptide Urine Eosinophils % 0.0 U Random Total Protein 16 H Urine Creatinine 24.94 Urine Microalbumin 30.0 Microalb/Creat Ratio 120.2 02/20/22 02/20/22 02/20/22 17:29 19:10 19:20 WBC 18.8 H RBC 3.45 L Hgb 9.9 L Hct 31.6 L MCV 91.6 MCH 28.7 MCHC 31.3 RDW 15.8 Plt Count 305 MPV 11.5 Immature Gran % (Auto) 2.2 H Neut % (Auto) 85.6 H Lymph % (Auto) 5.8 L Teller % (Auto) 5.8 Eos % (Auto) 0.3 Baso % (Auto) 0.3 Lymph # (Auto) 1.1 L Teller # (Auto) 1.1 Eos # (Auto) 0.1 Baso # (Auto) 0.1 Abs Immat Gran (auto) 0.42 H Absolute Neuts (auto) 16.1 H Absolute Nucleated RBC 0.080 H Nucleated RBC % (auto) 0.4 H O2 Saturation 58.0 ABG pH at Pt Temp 7.34 L ABG pCO2 at Pt Temp 31 L ABG pO2 at Pt Temp 41 L* ABG HCO3 17 L ABG Base Excess (Actual) -6.9 VBG pH VBG pCO2 VBG pO2 VBG HCO3 VBG O2 Saturation VBG Base Excess Sodium Potassium Chloride Carbon Dioxide Anion Gap BUN Creatinine Estim Creat Clear Calc Estimated GFR POC Glucose 128 H Random Glucose Fasting Glucose Estimat Average Glucose Hemoglobin A1c % Calcium Phosphorus Magnesium Troponin I High Sens B-Natriuretic Peptide Urine Eosinophils % U Random Total Protein Urine Creatinine Urine Microalbumin Microalb/Creat Ratio 02/20/22 02/20/22 02/20/22 19:20 19:20 23:46 WBC RBC Hgb Hct MCV MCH MCHC RDW Plt Count MPV Immature Gran % (Auto) Neut % (Auto) Lymph % (Auto) Teller % (Auto) Eos % (Auto) Baso % (Auto) Lymph # (Auto) Teller # (Auto) Eos # (Auto) Baso # (Auto) Abs Immat Gran (auto) Absolute Neuts (auto) Absolute Nucleated RBC Nucleated RBC % (auto) O2 Saturation ABG pH at Pt Temp ABG pCO2 at Pt Temp ABG pO2 at Pt Temp ABG HCO3 ABG Base Excess (Actual) VBG pH VBG pCO2 VBG pO2 VBG HCO3 VBG O2 Saturation VBG Base Excess Sodium 142 Potassium 4.3 Chloride 102 Carbon Dioxide 22 Anion Gap 22 H BUN 61 H Creatinine 3.18 H Estim Creat Clear Calc 21.1 Estimated GFR 14 POC Glucose 156 H Random Glucose 160 H Fasting Glucose Estimat Average Glucose Hemoglobin A1c % Calcium 7.3 L Phosphorus Magnesium Troponin I High Sens 25.7 H D B-Natriuretic Peptide 115 H Urine Eosinophils % U Random Total Protein Urine Creatinine Urine Microalbumin Microalb/Creat Ratio 02/21/22 02/21/22 02/21/22 00:39 05:20 05:20 WBC 14.8 H RBC 3.13 L Hgb 8.8 L Hct 28.8 L MCV 92.0 MCH 28.1 MCHC 30.6 L RDW 15.9 Plt Count 261 MPV 12.0 Immature Gran % (Auto) Neut % (Auto) Lymph % (Auto) Teller % (Auto) Eos % (Auto) Baso % (Auto) Lymph # (Auto) Teller # (Auto) Eos # (Auto) Baso # (Auto) Abs Immat Gran (auto) Absolute Neuts (auto) Absolute Nucleated RBC 0.060 H Nucleated RBC % (auto) 0.4 H O2 Saturation ABG pH at Pt Temp ABG pCO2 at Pt Temp ABG pO2 at Pt Temp ABG HCO3 ABG Base Excess (Actual) VBG pH 7.42 VBG pCO2 32 VBG pO2 39 VBG HCO3 21 L VBG O2 Saturation 61.0 VBG Base Excess -2.4 Sodium Potassium Chloride Carbon Dioxide Anion Gap BUN Creatinine 3.47 H Estim Creat Clear Calc 19.3 Estimated GFR 13 POC Glucose Random Glucose Fasting Glucose Estimat Average Glucose Hemoglobin A1c % Calcium Phosphorus Magnesium Troponin I High Sens B-Natriuretic Peptide Urine Eosinophils % U Random Total Protein Urine Creatinine Urine Microalbumin Microalb/Creat Ratio 02/21/22 02/21/22 02/21/22 05:20 05:27 05:36 WBC RBC Hgb Hct MCV MCH MCHC RDW Plt Count MPV Immature Gran % (Auto) Neut % (Auto) Lymph % (Auto) Teller % (Auto) Eos % (Auto) Baso % (Auto) Lymph # (Auto) Teller # (Auto) Eos # (Auto) Baso # (Auto) Abs Immat Gran (auto) Absolute Neuts (auto) Absolute Nucleated RBC Nucleated RBC % (auto) O2 Saturation ABG pH at Pt Temp ABG pCO2 at Pt Temp ABG pO2 at Pt Temp ABG HCO3 ABG Base Excess (Actual) VBG pH 7.46 H VBG pCO2 28 VBG pO2 42 VBG HCO3 20 L VBG O2 Saturation 68.0 VBG Base Excess -2.4 Sodium 146 H Potassium 4.2 Chloride 101 Carbon Dioxide 28 Anion Gap 21 H BUN 70 H Creatinine 3.57 H Estim Creat Clear Calc 18.8 Estimated GFR 12 POC Glucose 135 H Random Glucose 143 H Fasting Glucose Estimat Average Glucose Hemoglobin A1c % Calcium 7.0 L Phosphorus 5.0 H Magnesium 2.4 Troponin I High Sens B-Natriuretic Peptide Urine Eosinophils % U Random Total Protein Urine Creatinine Urine Microalbumin Microalb/Creat Ratio 02/21/22 02/21/22 07:06 11:02 WBC RBC Hgb Hct MCV MCH MCHC RDW Plt Count MPV Immature Gran % (Auto) Neut % (Auto) Lymph % (Auto) Teller % (Auto) Eos % (Auto) Baso % (Auto) Lymph # (Auto) Teller # (Auto) Eos # (Auto) Baso # (Auto) Abs Immat Gran (auto) Absolute Neuts (auto) Absolute Nucleated RBC Nucleated RBC % (auto) O2 Saturation ABG pH at Pt Temp ABG pCO2 at Pt Temp ABG pO2 at Pt Temp ABG HCO3 ABG Base Excess (Actual) VBG pH VBG pCO2 VBG pO2 VBG HCO3 VBG O2 Saturation VBG Base Excess Sodium 145 Potassium 4.0 Chloride 100 Carbon Dioxide 27 Anion Gap 22 H BUN 70 H Creatinine 3.58 H Estim Creat Clear Calc 18.5 Estimated GFR 12 POC Glucose Random Glucose Fasting Glucose 138 H Estimat Average Glucose 126 Hemoglobin A1c % 6.0 Calcium 6.9 L Phosphorus Magnesium Troponin I High Sens B-Natriuretic Peptide Urine Eosinophils % U Random Total Protein Urine Creatinine Urine Microalbumin Microalb/Creat Ratio Microbiology Microbiology Results: Microbiology 02/19/22 09:47 Sputum - Suctioned Gram Stain - Final 02/19/22 09:47 Sputum - Suctioned Sputum Culture - Final 02/18/22 15:05 Blood - Venous Blood Culture - Preliminary No growth after 48 hours. 02/18/22 15:05 Blood - Venous Blood Culture - Preliminary No growth after 48 hours. 02/18/22 Unknown Urine clean catch - Urine smith top Urine Culture - Final Escherichia coli Procedures Date of Service Date of Service: 02/21/22 Assessment & Plan Assessment and plan (1) Congestive heart failure: Status: Acute (2) Respiratory failure: Status: Acute (3) KENJI (acute kidney injury): Status: Acute (4) Stage 3a chronic kidney disease (CKD): Status: Acute Plan Ms. Shanon Stewart is a 76-year-old female with CKD stage IIIa (BL Cr 1.3mg/dL) 2/2 left renal atrophy and yuko-vascular disease (followed by Dr Hi), emphysema (O2 dependent), HFpEF, Hypothyroidism, A. fib (no anticoagulated), HTN who presented with 3 days worth of shortness of breath and weakness with an increasing home O2 requirement. Course complicated by acute hypoxic respiratory failure, AGMA, Renal Failure, and volume overload. 1. Non-oliguric KENJI on CKD stage IIIa BL Cr 1.3mg/dL, in the setting of known left renal atrophy and chronic yuko-vascular disease. KENJI now with Cr 1.9 -> 3.26 -> 3.5mg/dL in the setting of hemodynamic instability. Volume status difficult to ascertain. Diuresed from 02/20 - 02/21 with worsening renal function. Net -3.5L Etiologies of KENJI: - Hemodynamic stress, hypoperfusion in the setting of hypotension. Hyalinuria and some granular casts on UA fits a perfusion etiology to KENJI - No evidence of GN. Non-proteinuric. No hematuria. No active sediment - Obstruction ruled out. Plan: - ICU efforts transitioning from diuresis to resuscitation. - will monitor renal function - C3, C4, ANCA, SPEP, Immunofix, [place]/Lambda ordered for infiltrating disease (All pending) - no need for VEHICLE [employer]S [employer]INEER yet, but if UOP were to become refractory she will need ultrafiltration. Leonidas Richards MD RTANE Time Spent With Patient Time: Total time spent is greater than 50% in coordination of care (as documented) at patient's floor/unit and/or counseling patient: Progress Note: Quality Stroke Does the patient have a stroke diagnosis?: No
[2022-02-21 11:41] LABS: Vancomycin Random 20.8 mcg/mL (15-20)
--- NOTE | 2022-02-21 11:53 | HE.PHANOTE ---
[Vanco Addendum] Pt's trough came back 02/21/22 at 20.8; agreed with Dr. Kaufman to hold dose for today with another random to be drawn 02/22/22 @0600 with other labs. Will resume based on levels.
--- NOTE | 2022-02-21 12:00 | MHC.CM.PN ---
Pt continues care in ICU on ventilatory support. Pt initially from [facility] assisted living but will likely require STR following her prolonged ICU stay. Broad referrals made to start the process. HCP on file. CM to follow.
[2022-02-21] MEDS: Lactated Ringers 1,000 ML 80 ML IVCONT (13:30)
[2022-02-21] MEDS: Lactulose 20 GM/30 ML SOLUTION G-TUBE ×3 (14:19→23:53)
--- NOTE | 2022-02-21 20:04 | MHC.CLN ---
F/U PT REMAINS INTUBATED AND SEDATED TF STARTED AND CURRENTLY RUNNING AT 20ML/HR RECOMMEND PROMOTE AT MAX GOAL RATE 45ML/HR WITH 120ML FREE WATER FLUSHES Q 6 HRS TO PROVIDE 1080KCALS (1453KCALS WITH SEDATION; 25KCALS/KG BASED ON IBW), 67.5G PROTEIN (1.1G/KG), 1386ML TOTAL WATER FROM FORMULA AND FLUSHES (24ML/KG BASED ON IBW) MONITOR TOLERANCE, RESIDUALS AND LYTES
[2022-02-21 23:34] LABS: Glucose, Whole Blood 118 mg/dL (60-115)
[2022-02-22] VITALS (31 sets, daily range): BP systolic 114–155; BP diastolic 57–102; PULSE 67–86; RESP 18–28; TEMP 34.9–37.6; O2SAT 89–95; BMI 40.1
[2022-02-22] MEDS: Lactated Ringers 1,000 ML 80 ML IVCONT (01:18)
[2022-02-22 05:14] LABS: VBG Base Excess -1.7 mmol/L; VBG HCO3 21 mmol/L (22-26); VBG pCO2 30 mmHg; VBG pH 7.44 (7.32-7.43); VBG pO2 61 mmHg
[2022-02-22] MEDS: propofoL 1,000 MG/100 ML VIAL 21.23 MG IVCONT (05:14)
[2022-02-22] MEDS: Heparin Sodium,Porcine 5,000 UNIT/ML VIAL 5000 UNIT SUBCUT ×3 (05:15→21:15)
[2022-02-22] MEDS: Piperacillin Sodium/Tazobactam 3.375 GM in 0.9 % Sodium Chloride 50 ML IV ×4 (05:16→23:39)
[2022-02-22 05:17] LABS: Hematocrit 29.1 % (37.0-47.0); Hemoglobin 9.1 g/dl (12.0-16.0); Mean Corpuscular HGB Conc 31.3 g/dl (31.0-35.0); Mean Corpuscular Hemoglobin 28.3 pg (27.0-33.0); Mean Corpuscular Volume 90.4 fL (80.0-98.0); Mean Platelet Volume 11.2 fL (9.4-12.3); NRBC Pct Auto 0.6 /100WBC (0.0-0.2); Platelet Count 301 X10*3/uL (160-400); Red Blood Count 3.22 X10*6/uL (4.20-5.50); White Blood Count 12.5 X10*3/uL (4.8-10.8)
[2022-02-22 05:25] LABS: Venous Blood Gas Refer to POC result
[2022-02-22 05:28] LABS: Lactic Acid 1.1 mmol/L (0.5-2.0)
[2022-02-22 05:34] LABS: Alanine Aminotransferase 46 U/L (0-31); Albumin Level 2.7 g/dL (3.5-5.0); Alkaline Phosphatase 192 U/L (39-117); Anion Gap 20 (12-20); Aspartate Amino Transferase 158 U/L (5-31); Bilirubin Total 0.7 mg/dL (0.0-1.0); Blood Urea Nitrogen 77 mg/dL (9-16); Carbon Dioxide 28 mmol/L (22-29); Chloride 101 mmol/L (96-108); Creatinine Clr Calc Pharmacy 18.9; Estimated Glomerular Filt Rate 13; Glucose Random 147 mg/dL (60-115); Magnesium 2.4 mg/dL (1.6-2.6); Phosphorus 3.9 mg/dL (2.7-4.5); Potassium 3.3 mmol/L (3.3-5.1); Sodium 146 mmol/L (135-145); Total Protein 5.2 g/dL (6.5-8.0)
[2022-02-22 05:35] LABS: Glucose, Whole Blood 128 mg/dL (60-115)
[2022-02-22 05:40] LABS: Vancomycin Trough 16.5 mcg/mL (10.0-20.0)
--- NOTE | 2022-02-22 06:41 | HE.PHANOTE ---
[Vanco Addendum] Trough on 02/22/22 came back at 16.5mg/L 40 hours after first dose; spoke to Shae Encinas about possibly doing Q48H dosing but I did put in for Q24H for now, will resume dose for 1800 tonight with a trough to be drawn 02/23/22 @1600. Will adjust based on renal trends
[2022-02-22] MEDS: Potassium Chloride Packet 20 MEQ PACKET PO (08:16)
[2022-02-22] MEDS: Metoprolol Tartrate 50 MG TABLET PO ×3 (08:16→21:14)
[2022-02-22] MEDS: Chlorhexidine Gluc Oral Rinse 15 ML MOUTHWASH BUCCAL ×3 (08:16→21:14)
[2022-02-22 09:49] LABS: Erythrocyte Sedimentation Rate 108 MM/HR (0-20)
[2022-02-22] MEDS: metOLazone 5 MG TABLET PO (10:06)
[2022-02-22] MEDS: Furosemide 200 MG in 0.9 % Sodium Chloride 80 ML IVCONT (10:10)
--- NOTE | 2022-02-22 11:03 | P.PNNP_ITS ---
Subjective Subjective Date of Service: 02/22/22 Interval history: ECHO now most c/w RV thinning ?infarct Diuretics restarted non-oliguric Cr plateaue at 3.5 Physical Exam Vital Signs: Vital Signs: Last Vital Signs Temp 99.1 F 02/22/22 08:00 Pulse 67 02/22/22 11:00 Resp 19 02/22/22 11:00 BP 141/77 H 02/22/22 11:00 Pulse Ox 93 02/22/22 11:00 O2 Del Method 02/22/22 11:00 FiO2 40 02/22/22 11:00 BMI result Body Mass Index 40.1 Const: Other: Intubated. Sedated. Chest: Chest palpation & inspection: normal inspection of the chest Resp: Other: Lung auscultation revealed relatively clear breath sounds. Cardio: Other: JVP hard to assess. No murmurs noted. Regular and tachycardic. Rate: regular rate GI: Other: Obese. Soft. No fluid wave. : Other: Bryant in place with CYU Extrem: Other: No peripheral pitting edema Objective Data Labs CBC & Chem 7: 02/22/22 04:59 02/22/22 04:59 Labs: Laboratory Results - last 24 hr 02/20/22 02/21/22 02/21/22 13:20 11:01 11:02 WBC RBC Hgb Hct MCV MCH MCHC RDW Plt Count MPV Absolute Nucleated RBC Nucleated RBC % (auto) ESR VBG pH VBG pCO2 VBG pO2 VBG HCO3 VBG O2 Saturation VBG Base Excess Sodium Potassium Chloride Carbon Dioxide Anion Gap BUN Creatinine Estim Creat Clear Calc Estimated GFR POC Glucose Random Glucose Estimat Average Glucose 126 Hemoglobin A1c % 6.0 Lactic Acid Calcium Phosphorus Magnesium Total Bilirubin AST ALT Alkaline Phosphatase Total Protein Albumin Ur Random Sodium 93.0 Vancomycin Trough Random Vancomycin 20.8 H 02/21/22 02/21/22 02/21/22 12:05 17:55 23:29 WBC RBC Hgb Hct MCV MCH MCHC RDW Plt Count MPV Absolute Nucleated RBC Nucleated RBC % (auto) ESR VBG pH VBG pCO2 VBG pO2 VBG HCO3 VBG O2 Saturation VBG Base Excess Sodium Potassium Chloride Carbon Dioxide Anion Gap BUN Creatinine Estim Creat Clear Calc Estimated GFR POC Glucose 147 H 119 H 118 H Random Glucose Estimat Average Glucose Hemoglobin A1c % Lactic Acid Calcium Phosphorus Magnesium Total Bilirubin AST ALT Alkaline Phosphatase Total Protein Albumin Ur Random Sodium Vancomycin Trough Random Vancomycin 02/22/22 02/22/22 02/22/22 04:59 04:59 04:59 WBC 12.5 H RBC 3.22 L Hgb 9.1 L Hct 29.1 L MCV 90.4 MCH 28.3 MCHC 31.3 RDW 16.0 Plt Count 301 MPV 11.2 Absolute Nucleated RBC 0.070 H Nucleated RBC % (auto) 0.6 H ESR VBG pH VBG pCO2 VBG pO2 VBG HCO3 VBG O2 Saturation VBG Base Excess Sodium 146 H Potassium 3.3 Chloride 101 Carbon Dioxide 28 Anion Gap 20 BUN 77 H Creatinine 3.53 H Estim Creat Clear Calc 18.9 Estimated GFR 13 POC Glucose Random Glucose 147 H Estimat Average Glucose Hemoglobin A1c % Lactic Acid Calcium 7.0 L Phosphorus 3.9 Magnesium 2.4 Total Bilirubin 0.7 AST 158 H ALT 46 H Alkaline Phosphatase 192 H D Total Protein 5.2 L Albumin 2.7 L Ur Random Sodium Vancomycin Trough 16.5 Random Vancomycin 02/22/22 02/22/22 02/22/22 04:59 05:08 05:32 WBC RBC Hgb Hct MCV MCH MCHC RDW Plt Count MPV Absolute Nucleated RBC Nucleated RBC % (auto) ESR VBG pH 7.44 H VBG pCO2 30 VBG pO2 61 VBG HCO3 21 L VBG O2 Saturation 86.0 VBG Base Excess -1.7 Sodium Potassium Chloride Carbon Dioxide Anion Gap BUN Creatinine Estim Creat Clear Calc Estimated GFR POC Glucose 128 H Random Glucose Estimat Average Glucose Hemoglobin A1c % Lactic Acid 1.1 Calcium Phosphorus Magnesium Total Bilirubin AST ALT Alkaline Phosphatase Total Protein Albumin Ur Random Sodium Vancomycin Trough Random Vancomycin 02/22/22 07:45 WBC RBC Hgb Hct MCV MCH MCHC RDW Plt Count MPV Absolute Nucleated RBC Nucleated RBC % (auto) ESR 108 H VBG pH VBG pCO2 VBG pO2 VBG HCO3 VBG O2 Saturation VBG Base Excess Sodium Potassium Chloride Carbon Dioxide Anion Gap BUN Creatinine Estim Creat Clear Calc Estimated GFR POC Glucose Random Glucose Estimat Average Glucose Hemoglobin A1c % Lactic Acid Calcium Phosphorus Magnesium Total Bilirubin AST ALT Alkaline Phosphatase Total Protein Albumin Ur Random Sodium Vancomycin Trough Random Vancomycin Microbiology Microbiology Results: Microbiology 02/19/22 09:47 Sputum - Suctioned Gram Stain - Final 02/19/22 09:47 Sputum - Suctioned Sputum Culture - Final 02/18/22 15:05 Blood - Venous Blood Culture - Preliminary No growth after 48 hours. 02/18/22 15:05 Blood - Venous Blood Culture - Preliminary No growth after 48 hours. 02/18/22 Unknown Urine clean catch - Urine smith top Urine Culture - Final Escherichia coli Procedures Date of Service Date of Service: 02/22/22 Assessment & Plan Assessment and plan (1) Congestive heart failure: Status: Acute (2) Respiratory failure: Status: Acute (3) KENJI (acute kidney injury): Status: Acute (4) Stage 3a chronic kidney disease (CKD): Status: Acute Plan Ms. Shanon Stewart is a 76-year-old female with CKD stage IIIa (BL Cr 1.3mg/dL) 2/2 left renal atrophy and yuko-vascular disease (followed by Dr Hi), emphysema (O2 dependent), HFpEF, Hypothyroidism, A. fib (no anticoagulated), HTN who presented with 3 days worth of shortness of breath and weakness with an increasing home O2 requirement. Course complicated by acute hypoxic respiratory failure, AGMA, Renal Failure, and volume overload. 1. Non-oliguric KENJI on CKD stage IIIa BL Cr 1.3mg/dL, in the setting of known left renal atrophy and chronic yuko- vascular disease. KENJI now with Cr 1.9 -> 3.26 -> 3.5mg/dL in the setting of hemodynamic instability. Volume status difficult to ascertain. Diuresed from 02/20 - 02/21 with worsening renal function. Net -3.5L Etiologies of KENJI: - Hemodynamic stress, hypoperfusion in the setting of hypotension. Hyalinuria and some granular casts on UA fits a perfusion etiology to KENJI - No evidence of GN. Non-proteinuric. No hematuria. No active sediment - Obstruction ruled out. Plan: - ICU efforts transitioning towards diuresis - Serum albumin low 2.7, which could lead to diuretic resistance.If so consider Albumin chaser with diuretics - will monitor renal function - C3, C4, ANCA, SPEP, Immunofix, [place]/Lambda ordered for infiltrating disease (All pending) - no need for PERMASTONE APPLICATOR yet, but if UOP were to become refractory she will need ultrafiltration. Leonidas Richards MD RTANE Time Spent With Patient Time: Total time spent is greater than 50% in coordination of care (as documented) at patient's floor/unit and/or counseling patient: Progress Note: Quality Stroke Does the patient have a stroke diagnosis?: No
[2022-02-22 11:57] LABS: Glucose, Whole Blood 137 mg/dL (60-115)
[2022-02-22] MEDS: methylPREDNISolone Sod Succ 125 MG/2 ML VIAL 500 MG IVPUSH (12:04)
[2022-02-22] MEDS: propofoL 1,000 MG/100 ML VIAL 14.15 MG IVCONT ×3 (12:12→23:40)
[2022-02-22 14:43] LABS: Prot Elec - Albumin 2.8 g/dL (3.8-4.8); Prot Elec - Alpha1 0.6 g/dL (0.2-0.3); Prot Elec - Alpha2 0.9 g/dL (0.5-0.9); Prot Elec - Beta 1 0.3 g/dL (0.4-0.6); Prot Elec - Beta 2 0.4 g/dL (0.2-0.5); Prot Elec - Gamma 0.5 g/dL (0.8-1.7); Prot Elec - Total Protein 5.5 g/dL (6.1-8.1)
[2022-02-22 14:56] LABS: IgA 196 mg/dL (70-320); IgG 572 mg/dL (600-1540); IgM 79 mg/dL (50-300)
--- NOTE | 2022-02-22 16:05 | P.PNCC_ITS ---
Subjective Subjective Date of Service: 02/22/22 Interval History: 76-year-old morbidly obese female with long smoking history and COPD and home oxygen dependent came in with acute hypoxemic respiratory failure initially manifested by altered mental status and unable to sustain on noninvasive measures and required intubation and initially noted was a left lower lobe consolidation since that time has developed perihilar fullness bilaterally with bilateral pleural effusions which are modest in size with a CVP that exceeds 20 still on the ventilator and over the days acutely of intake and output positive 6 L and also developed acute on chronic renal failure with a baseline creatinine of 1.3 peaking at 3.5 but nonoliguric so after the CVP measurement I initiated 10 milligram/hour IV Lasix drip which has been highly productive and we probably have exceeded so far 1500 cc of diuresis and CVP still remains greater than 20 so I am sure were beginning to recapture 3rd space fluid but all in all she only has a 9 L minute ventilatory requirement but an FiO2 of 40% and remains comfort ably sedated she is a chronic atrial fibrillator with somewhat controlled heart rate and my bedside echo did demonstrate I would say of 40-45% ejection fraction with mild global hypokinesis but inferobasal thinning and akinesis consistent with an infarct of on dated age had no primary valve or pericardial disease Critical Care Time (minutes): 60 Physical Exam Vital Signs: Vital Signs: Last Vital Signs Temp 99.5 F 02/22/22 16:00 Pulse 70 02/22/22 16:00 Resp 20 02/22/22 16:00 BP 134/77 02/22/22 16:00 Pulse Ox 94 02/22/22 16:00 O2 Del Method 02/22/22 16:00 FiO2 40 02/22/22 16:00 BMI result Body Mass Index 40.1 sedated and intubated bedside echo as I stated and she has been involuntarily moving all 4 extremities abdomen is obese but no again a megaly and tolerating feedings chest without adventitious sounds or accessory muscle effort no significant edema and skin is intact Objective Data Labs CBC & Chem 7: 02/22/22 04:59 02/22/22 04:59 Labs: Laboratory Results - last 24 hr 02/20/22 02/21/22 02/21/22 13:17 12:05 17:55 WBC RBC Hgb Hct MCV MCH MCHC RDW Plt Count MPV Absolute Nucleated RBC Nucleated RBC % (auto) ESR VBG pH VBG pCO2 VBG pO2 VBG HCO3 VBG O2 Saturation VBG Base Excess Sodium Potassium Chloride Carbon Dioxide Anion Gap BUN Creatinine Estim Creat Clear Calc Estimated GFR POC Glucose 147 H 119 H Random Glucose Lactic Acid Calcium Phosphorus Magnesium Total Bilirubin AST ALT Alkaline Phosphatase Total Protein Total Protein (PEP) 5.5 L Albumin Albumin (PEP) 2.8 L Ksmnu-1-Sjnctqepe 0.6 H Srjbf-0-Ogfnutjuo 0.9 Iixn-8-Npefdxoh 0.3 L Yucg-2-Mfvezplm 0.4 Gamma Globulins 0.5 L PEP Interpretation SEE NOTE Vancomycin Trough IgG Total 572 L IgA Total 196 IgM 79 LUZ ELENA Interpretation SEE NOTE 02/21/22 02/22/22 02/22/22 23:29 04:59 04:59 WBC 12.5 H RBC 3.22 L Hgb 9.1 L Hct 29.1 L MCV 90.4 MCH 28.3 MCHC 31.3 RDW 16.0 Plt Count 301 MPV 11.2 Absolute Nucleated RBC 0.070 H Nucleated RBC % (auto) 0.6 H ESR VBG pH VBG pCO2 VBG pO2 VBG HCO3 VBG O2 Saturation VBG Base Excess Sodium Potassium Chloride Carbon Dioxide Anion Gap BUN Creatinine Estim Creat Clear Calc Estimated GFR POC Glucose 118 H Random Glucose Lactic Acid Calcium Phosphorus Magnesium Total Bilirubin AST ALT Alkaline Phosphatase Total Protein Total Protein (PEP) Albumin Albumin (PEP) Knhxm-4-Mbiytnjva Qlykh-2-Jjwdodjqu Qllz-4-Gpbajvrj Acer-9-Xkzwrpyj Gamma Globulins PEP Interpretation Vancomycin Trough 16.5 IgG Total IgA Total IgM LUZ ELENA Interpretation 02/22/22 02/22/22 02/22/22 04:59 04:59 05:08 WBC RBC Hgb Hct MCV MCH MCHC RDW Plt Count MPV Absolute Nucleated RBC Nucleated RBC % (auto) ESR VBG pH 7.44 H VBG pCO2 30 VBG pO2 61 VBG HCO3 21 L VBG O2 Saturation 86.0 VBG Base Excess -1.7 Sodium 146 H Potassium 3.3 Chloride 101 Carbon Dioxide 28 Anion Gap 20 BUN 77 H Creatinine 3.53 H Estim Creat Clear Calc 18.9 Estimated GFR 13 POC Glucose Random Glucose 147 H Lactic Acid 1.1 Calcium 7.0 L Phosphorus 3.9 Magnesium 2.4 Total Bilirubin 0.7 AST 158 H ALT 46 H Alkaline Phosphatase 192 H D Total Protein 5.2 L Total Protein (PEP) Albumin 2.7 L Albumin (PEP) Syevj-9-Ccexrphei Ctgir-2-Xymizaynw Amza-4-Pleylnzs Hcvz-1-Qanaacne Gamma Globulins PEP Interpretation Vancomycin Trough IgG Total IgA Total IgM LUZ ELENA Interpretation 02/22/22 02/22/22 02/22/22 05:32 07:45 11:53 WBC RBC Hgb Hct MCV MCH MCHC RDW Plt Count MPV Absolute Nucleated RBC Nucleated RBC % (auto) ESR 108 H VBG pH VBG pCO2 VBG pO2 VBG HCO3 VBG O2 Saturation VBG Base Excess Sodium Potassium Chloride Carbon Dioxide Anion Gap BUN Creatinine Estim Creat Clear Calc Estimated GFR POC Glucose 128 H 137 H Random Glucose Lactic Acid Calcium Phosphorus Magnesium Total Bilirubin AST ALT Alkaline Phosphatase Total Protein Total Protein (PEP) Albumin Albumin (PEP) Dszxm-1-Bhjpymfze Oztae-8-Nedqlgtlc Fjgg-0-Zxgqjpad Cuyy-7-Ssmwiwhg Gamma Globulins PEP Interpretation Vancomycin Trough IgG Total IgA Total IgM LUZ ELENA Interpretation Microbiology Microbiology Results: Microbiology 02/19/22 09:47 Sputum - Suctioned Gram Stain - Final 02/19/22 09:47 Sputum - Suctioned Sputum Culture - Final 02/18/22 15:05 Blood - Venous Blood Culture - Preliminary No growth after 48 hours. 02/18/22 15:05 Blood - Venous Blood Culture - Preliminary No growth after 48 hours. 02/18/22 Unknown Urine clean catch - Urine smith top Urine Culture - Final Escherichia coli Progress Note: A&P Assessment and plan (1) Metabolic encephalopathy: Status: Acute (2) Urinary tract infection: Status: Acute (3) Congestive heart failure with left ventricular systolic dysfunction (LVSD): Status: Acute (4) Congestive heart failure with LV diastolic dysfunction, NYHA class 1: Status: Acute (5) Atrial fibrillation with rapid ventricular response: Status: Acute (6) Stage 3a chronic kidney disease (CKD): Status: Acute (7) KENJI (acute kidney injury): Status: Acute (8) Congestive heart failure: Status: Acute (9) Pneumonia: Status: Acute (10) Respiratory failure: Status: Acute Plan so she is having wonderful response on and therefore will continue with the Lasix drip and watch for the CVP of course the come down at least to between 10 and to 12 at that point I might give sedation holiday and make an attempt at a pressure support weaning trial and in addition for now continue antibiotics as above Quality Stroke Does the patient have a stroke diagnosis?: No VTE Prior VTE?: No VTE Risk Level:: Medical - moderate - high VTE Device Contraindication: N/A - Device Ordered VTE Drug Contraindication: N/A - Med Ordered
[2022-02-22 16:38] LABS: Anion Gap 21 (12-20); Blood Urea Nitrogen 78 mg/dL (9-16); Calcium 7.3 mg/dL (8.4-10.2); Carbon Dioxide 30 mmol/L (22-29); Chloride 98 mmol/L (96-108); Creatinine Clr Calc Pharmacy 20.7; Estimated Glomerular Filt Rate 14; Glucose Random 207 mg/dL (60-115); Potassium 3.9 mmol/L (3.3-5.1); Sodium 145 mmol/L (135-145)
[2022-02-22 16:58] LABS: TSH reflex Free T4 1.86 uIU/mL (0.32-4.0)
[2022-02-22 18:08] LABS: Glucose, Whole Blood 221 mg/dL (60-115)
[2022-02-22] MEDS: Insulin Lispro 100 UNIT/ML 3 ML VIAL SUBCUT ×2 (18:09→23:58)
[2022-02-22] MEDS: vancomycin HCL 500 MG in 0.9 % Sodium Chloride 100 ML 110 MG IV (18:12)
--- NOTE | 2022-02-22 18:37 | PC.NURSE ---
ABLE TO TITRATE OFF THE LEVOPHED GTT. SEE EMAR. RESTARTED LASIX GTT PER MD ORDER, URINE OUTPUT 2075 ML POST START OF LASIX GTT. CVP 15-16 RECTAL TUBE REMOVED, INCONTINENT OF STOOL.
[2022-02-23] VITALS (28 sets, daily range): BP systolic 115–161; BP diastolic 62–95; PULSE 63–95; RESP 13–25; TEMP 34.7–38; O2SAT 87–95; BMI 38.5
[2022-02-23] LABS: Glucose, Whole Blood 278 mg/dL (60-115)
[2022-02-23 01:11] LABS: Anion Gap 23 (12-20); Blood Urea Nitrogen 83 mg/dL (9-16); Calcium 7.7 mg/dL (8.4-10.2); Carbon Dioxide 31 mmol/L (22-29); Chloride 96 mmol/L (96-108); Creatinine Clr Calc Pharmacy 21.3; Estimated Glomerular Filt Rate 14; Glucose Random 301 mg/dL (60-115); Magnesium 2.3 mg/dL (1.6-2.6); Potassium 3.8 mmol/L (3.3-5.1); Sodium 146 mmol/L (135-145)
[2022-02-23] MEDS: Furosemide 200 MG in 0.9 % Sodium Chloride 80 ML IVCONT (05:22)
[2022-02-23 05:34] LABS: Glucose, Whole Blood 329 mg/dL (60-115)
[2022-02-23 05:41] LABS: VBG Base Excess 10.2 mmol/L; VBG HCO3 34 mmol/L (22-26); VBG pCO2 42 mmHg; VBG pH 7.51 (7.32-7.43); VBG pO2 41 mmHg
[2022-02-23 05:49] LABS: Venous Blood Gas Refer to POC result
[2022-02-23 05:51] LABS: Basophils Percent Auto 0.3 % (0-2); Eosinophils Percent Auto 0.1 % (0-4); Hematocrit 31.9 % (37.0-47.0); Hemoglobin 10.3 g/dl (12.0-16.0); Imm Gran Abs Auto 0.66 X10*3/uL (0.00-0.03); Imm Gran Pct Auto 8.4 % (0.0-0.4); Lymphocytes Absolute Auto 0.7 X10*3/uL (1.2-4.9); Mean Corpuscular HGB Conc 32.3 g/dl (31.0-35.0); Mean Corpuscular Hemoglobin 28.9 pg (27.0-33.0); Mean Corpuscular Volume 89.6 fL (80.0-98.0); Mean Platelet Volume 11.7 fL (9.4-12.3); Monocytes Absolute Auto 0.1 X10*3/uL (0.1-1.2); Monocytes Percent Auto 1.4 % (2-11); NRBC Pct Auto 0.5 /100WBC (0.0-0.2); Neutrophils Absolute Auto 6.4 x10*3/uL (2.0-8.3); Neutrophils Percent Auto 80.8 % (45-73); Platelet Count 354 X10*3/uL (160-400); Red Blood Count 3.56 X10*6/uL (4.20-5.50); Red Cell Distribution Width 15.7 % (11.0-16.0); SCAN SMEAR FLAG 1; White Blood Count 7.9 X10*3/uL (4.8-10.8)
[2022-02-23 05:52] LABS: MANUAL DIFF FLAG SCAN
[2022-02-23 05:59] LABS: Albumin Level 3.2 g/dL (3.5-5.0); Anion Gap 23 (12-20); Blood Urea Nitrogen 90 mg/dL (9-16); Calcium 7.7 mg/dL (8.4-10.2); Carbon Dioxide 31 mmol/L (22-29); Chloride 95 mmol/L (96-108); Creatinine Clr Calc Pharmacy 21.2; Estimated Glomerular Filt Rate 14; Glucose Random 333 mg/dL (60-115); Magnesium 2.5 mg/dL (1.6-2.6); Phosphorus 3.5 mg/dL (2.7-4.5); Potassium 3.7 mmol/L (3.3-5.1); Sodium 145 mmol/L (135-145)
[2022-02-23] MEDS: Heparin Sodium,Porcine 5,000 UNIT/ML VIAL 5000 UNIT SUBCUT ×3 (06:01→21:48)
[2022-02-23] MEDS: Piperacillin Sodium/Tazobactam 3.375 GM in 0.9 % Sodium Chloride 50 ML IV ×4 (06:01→23:58)
[2022-02-23] MEDS: Insulin Lispro 100 UNIT/ML 3 ML VIAL SUBCUT ×4 (06:02→23:57)
[2022-02-23] MEDS: propofoL 1,000 MG/100 ML VIAL 14.15 MG IVCONT (06:14)
[2022-02-23 06:16] LABS: SLIDE REVIEW VERIFIED
[2022-02-23 07:43] LABS: Myeloperoxidase Antibody <1.0 AI; Proteinase 3 PR3 Antibodies <1.0 AI
[2022-02-23] MEDS: Metoprolol Tartrate 25 MG TABLET 75 MG PO ×2 (09:03→21:48)
[2022-02-23] MEDS: Chlorhexidine Gluc Oral Rinse 15 ML MOUTHWASH BUCCAL ×3 (09:03→21:48)
--- NOTE | 2022-02-23 09:57 | MHC.CLN ---
F/U PT REMAINS INTUBATED AND SEDATED TF CURRENTLY RUNNING AT 35ML/HR PROVIDES 840KCALS, 52.5G (.9G/KG BASED ON IBW), 1665ML TOTAL FREE WATER FROM FORMULA AND FLUSHES (29ML/KG) RECOMMEND INCREASING PROMOTE AT MAX GOAL RATE 45ML/HR WITH 120ML FREE WATER FLUSHES Q 6 HRS TO PROVIDE 1080KCALS (1453KCALS WITH SEDATION; 25KCALS/KG BASED ON IBW), 67.5G PROTEIN (1.1G/KG), 1386ML TOTAL WATER FROM FORMULA AND FLUSHES (24ML/KG BASED ON IBW) MONITOR TOLERANCE, RESIDUALS AND LYTES
[2022-02-23 11:59] LABS: Glucose, Whole Blood 278 mg/dL (60-115)
[2022-02-23 13:22] LABS: Complement C3 183 mg/dL (83-193)
--- NOTE | 2022-02-23 14:34 | MHC.CM.PN ---
Pt continues care in ICU : on ventilator support: d/c plan dependent on progress: Broad referrals made in likelihood pt will require STR: CM to follow.
[2022-02-23] MEDS: propofoL 1,000 MG/100 ML VIAL 21.23 MG IVCONT ×3 (15:05→22:43)
--- NOTE | 2022-02-23 15:58 | PM.CCPN ---
Subjective Subjective Date of Service: 02/23/22 Interval History: 76-year-old morbidly obese female with known oxygen-dependent COPD with chronic atrial fibrillation and probable heart failure with preserved ejection fraction presented with altered mental status due to metabolic encephalopathy acute hypoxic respiratory failure due to a left lower lobe community-acquired pneumonia and on top of which developed heart failure with considerable fluid overload and acute tubular necrosis and and acute stage IV renal failure and elevated CVP has responded to a Lasix drip to the tune of greater than 8 L over at least a 48 to 60 hour continuous drip and CVP finally came down from greater than 20 to approximately 7 at which time we began the 1st of her sedation holiday trials where she did demonstrate some cognitive function but agitated to a degree but failed very quickly on pressure support on the ventilator so again recent dated at this point and hopefully will be able to try again but we have concerns about the no her renal function but currently she slowly resolving On vancomycin and Zosyn and I worry from a nephrotoxicity standpoint about the combination but we are awaiting microbiology results on sputum Critical Care Time (minutes): 45 Physical Exam Vital Signs: Vital Signs: Last Vital Signs Temp 99.7 F 02/23/22 13:00 Pulse 79 02/23/22 15:00 Resp 20 02/23/22 15:00 BP 152/84 H 02/23/22 15:00 Pulse Ox 90 L 02/23/22 15:00 O2 Del Method 02/23/22 15:00 FiO2 40 02/23/22 15:00 BMI result Body Mass Index 38.5 Neurologically intact nonfocal Bedside echo showing preserved left ventricular systolic function no primary valve or pericardial disease Chest with diminished bilateral breath sounds no adventitious sounds and she has got a low minute ventilatory requirement and low FiO2 requirement respectively 7.5 L and 30% Abdomen benign excepting feedings Objective Data Labs CBC & Chem 7: 02/24/22 06:40 02/24/22 05:05 Labs: Laboratory Results - last 24 hr 02/20/22 02/22/22 02/22/22 13:17 16:07 17:57 WBC RBC Hgb Hct MCV MCH MCHC RDW Plt Count MPV Immature Gran % (Auto) Neut % (Auto) Lymph % (Auto) [place] % (Auto) Eos % (Auto) Baso % (Auto) Lymph # (Auto) [place] # (Auto) Eos # (Auto) Baso # (Auto) Abs Immat Gran (auto) Absolute Neuts (auto) Absolute Nucleated RBC Nucleated RBC % (auto) Smear Tech's Comments VBG pH VBG pCO2 VBG pO2 VBG HCO3 VBG O2 Saturation VBG Base Excess Sodium 145 Potassium 3.9 Chloride 98 Carbon Dioxide 30 H Anion Gap 21 H BUN 78 H Creatinine 3.23 H Estim Creat Clear Calc 20.7 Estimated GFR 14 POC Glucose 221 H Random Glucose 207 H Calcium 7.3 L Phosphorus Magnesium Albumin TSH 1.86 Proteinase 3 (PR3) Ab <1.0 Myeloperoxidase Ab <1.0 Complement C3 183 Complement C4 35 02/22/22 02/23/22 02/23/22 23:49 00:14 05:30 WBC RBC Hgb Hct MCV MCH MCHC RDW Plt Count MPV Immature Gran % (Auto) Neut % (Auto) Lymph % (Auto) [place] % (Auto) Eos % (Auto) Baso % (Auto) Lymph # (Auto) [place] # (Auto) Eos # (Auto) Baso # (Auto) Abs Immat Gran (auto) Absolute Neuts (auto) Absolute Nucleated RBC Nucleated RBC % (auto) Smear Tech's Comments VBG pH VBG pCO2 VBG pO2 VBG HCO3 VBG O2 Saturation VBG Base Excess Sodium 146 H 145 Potassium 3.8 3.7 Chloride 96 95 L Carbon Dioxide 31 H 31 H Anion Gap 23 H 23 H BUN 83 H 90 H Creatinine 3.16 H 3.17 H Estim Creat Clear Calc 21.3 21.2 Estimated GFR 14 14 POC Glucose 278 H Random Glucose 301 H 333 H Calcium 7.7 L 7.7 L Phosphorus 3.5 Magnesium 2.3 2.5 Albumin 3.2 L TSH Proteinase 3 (PR3) Ab Myeloperoxidase Ab Complement C3 Complement C4 02/23/22 02/23/22 02/23/22 05:30 05:32 05:36 WBC 7.9 RBC 3.56 L Hgb 10.3 L Hct 31.9 L MCV 89.6 MCH 28.9 MCHC 32.3 RDW 15.7 Plt Count 354 MPV 11.7 Immature Gran % (Auto) 8.4 H Neut % (Auto) 80.8 H Lymph % (Auto) 9.0 L [place] % (Auto) 1.4 L Eos % (Auto) 0.1 Baso % (Auto) 0.3 Lymph # (Auto) 0.7 L [place] # (Auto) 0.1 Eos # (Auto) 0.0 Baso # (Auto) 0.0 Abs Immat Gran (auto) 0.66 H Absolute Neuts (auto) 6.4 Absolute Nucleated RBC 0.040 H Nucleated RBC % (auto) 0.5 H Smear Tech's Comments VERIFIED VBG pH 7.51 H VBG pCO2 42 VBG pO2 41 VBG HCO3 34 H VBG O2 Saturation 60.0 VBG Base Excess 10.2 Sodium Potassium Chloride Carbon Dioxide Anion Gap BUN Creatinine Estim Creat Clear Calc Estimated GFR POC Glucose 329 H Random Glucose Calcium Phosphorus Magnesium Albumin TSH Proteinase 3 (PR3) Ab Myeloperoxidase Ab Complement C3 Complement C4 02/23/22 11:53 WBC RBC Hgb Hct MCV MCH MCHC RDW Plt Count MPV Immature Gran % (Auto) Neut % (Auto) Lymph % (Auto) [place] % (Auto) Eos % (Auto) Baso % (Auto) Lymph # (Auto) [place] # (Auto) Eos # (Auto) Baso # (Auto) Abs Immat Gran (auto) Absolute Neuts (auto) Absolute Nucleated RBC Nucleated RBC % (auto) Smear Tech's Comments VBG pH VBG pCO2 VBG pO2 VBG HCO3 VBG O2 Saturation VBG Base Excess Sodium Potassium Chloride Carbon Dioxide Anion Gap BUN Creatinine Estim Creat Clear Calc Estimated GFR POC Glucose 278 H Random Glucose Calcium Phosphorus Magnesium Albumin TSH Proteinase 3 (PR3) Ab Myeloperoxidase Ab Complement C3 Complement C4 Microbiology Microbiology Results: Microbiology 02/23/22 09:15 Sputum - Suctioned Gram Stain - Final 02/19/22 09:47 Sputum - Suctioned Gram Stain - Final 02/19/22 09:47 Sputum - Suctioned Sputum Culture - Final 02/18/22 15:05 Blood - Venous Blood Culture - Preliminary No growth after 48 hours. 02/18/22 15:05 Blood - Venous Blood Culture - Preliminary No growth after 48 hours. 02/18/22 Unknown Urine clean catch - Urine smith top Urine Culture - Final Escherichia coli Progress Note: A&P Assessment and plan (1) Atrial fibrillation with rapid ventricular response: Status: Acute (2) Congestive heart failure with LV diastolic dysfunction, NYHA class 1: Status: Acute (3) Congestive heart failure with left ventricular systolic dysfunction (LVSD): Status: Acute (4) Urinary tract infection: Status: Acute (5) Metabolic encephalopathy: Status: Acute (6) Stage 3a chronic kidney disease (CKD): Status: Acute (7) KENJI (acute kidney injury): Status: Acute (8) Congestive heart failure: Status: Acute (9) Pneumonia: Status: Acute (10) Respiratory failure: Status: Acute Plan Plan and if no growth in the sputum in the next 24 hours at least discontinue the vancomycin and re-attempt sedation holiday in the morning along with pressure support trial if cognitive function is appropriate Quality Stroke Does the patient have a stroke diagnosis?: No VTE Prior VTE?: No VTE Risk Level:: Medical - moderate - high VTE Device Contraindication: N/A - Device Ordered VTE Drug Contraindication: N/A - Med Ordered
[2022-02-23] MEDS: Potassium Chloride Packet 20 MEQ PACKET PO (16:39)
[2022-02-23 16:54] LABS: Calcium 7.9 mg/dL (8.4-10.2); Glucose Random 340 mg/dL (60-115)
--- NOTE | 2022-02-23 16:58 | PC.NURSE ---
CVP down to 8 - MD notified. VO Dr Martinez stop lasix gtt now.
[2022-02-23 17:04] LABS: Vancomycin Trough 14.3 mcg/mL (10.0-20.0)
[2022-02-23 17:05] LABS: Anion Gap 23 (12-20); Blood Urea Nitrogen 98 mg/dL (9-16); Carbon Dioxide 32 mmol/L (22-29); Chloride 94 mmol/L (96-108); Creatinine Clr Calc Pharmacy 21.3; Estimated Glomerular Filt Rate 15; Potassium 3.3 mmol/L (3.3-5.1); Sodium 146 mmol/L (135-145)
[2022-02-23 17:17] LABS: Glucose, Whole Blood 311 mg/dL (60-115)
[2022-02-23] MEDS: vancomycin HCL 500 MG in 0.9 % Sodium Chloride 100 ML 110 MG IV (17:58)
[2022-02-23] MEDS: Potassium Chloride/H20 40 MEQ/100 ML PIGGYBACK 50 MEQ IV (19:30)
[2022-02-23 23:42] LABS: Glucose, Whole Blood 318 mg/dL (60-115)
[2022-02-24] VITALS (32 sets, daily range): BP systolic 115–162; BP diastolic 59–90; PULSE 58–102; RESP 16–31; TEMP 34.6–38.5; O2SAT 88–94; BMI 38.0
[2022-02-24] MEDS: propofoL 1,000 MG/100 ML VIAL 21.23 MG IVCONT ×5 (03:06→22:00)
--- NOTE | 2022-02-24 04:53 | PC.NURSE ---
assume care of pt at 1900, on vent a/c, pt desat with repositioning recovered with suction and rest, afib on tele rate controled 80s-100s, personal hygiene provided
[2022-02-24 05:12] LABS: VBG HCO3 36 mmol/L (22-26); VBG pCO2 45 mmHg; VBG pH 7.51 (7.32-7.43); VBG pO2 47 mmHg
[2022-02-24 05:25] LABS: Venous Blood Gas Refer to POC result
[2022-02-24 05:34] LABS: Glucose, Whole Blood 302 mg/dL (60-115)
[2022-02-24] MEDS: Insulin Lispro 100 UNIT/ML 3 ML VIAL SUBCUT ×2 (05:37→12:04)
[2022-02-24] MEDS: Heparin Sodium,Porcine 5,000 UNIT/ML VIAL 5000 UNIT SUBCUT ×3 (05:38→22:46)
[2022-02-24] MEDS: Piperacillin Sodium/Tazobactam 3.375 GM in 0.9 % Sodium Chloride 50 ML IV ×2 (05:38→22:47)
[2022-02-24 05:50] LABS: Anion Gap 23 (12-20); Blood Urea Nitrogen 109 mg/dL (9-16); Carbon Dioxide 31 mmol/L (22-29); Chloride 96 mmol/L (96-108); Creatinine Clr Calc Pharmacy 20.4; Estimated Glomerular Filt Rate 14; Glucose Random 300 mg/dL (60-115); Magnesium 2.4 mg/dL (1.6-2.6); Phosphorus 3.2 mg/dL (2.7-4.5); Potassium 4.2 mmol/L (3.3-5.1); Sodium 146 mmol/L (135-145)
[2022-02-24 06:56] LABS: Hematocrit 30.4 % (37.0-47.0); Hemoglobin 9.5 g/dl (12.0-16.0); Mean Corpuscular HGB Conc 31.3 g/dl (31.0-35.0); Mean Corpuscular Hemoglobin 28.3 pg (27.0-33.0); Mean Corpuscular Volume 90.5 fL (80.0-98.0); Mean Platelet Volume 10.9 fL (9.4-12.3); NRBC Pct Auto 0.4 /100WBC (0.0-0.2); Platelet Count 376 X10*3/uL (160-400); Red Blood Count 3.36 X10*6/uL (4.20-5.50); Red Cell Distribution Width 15.5 % (11.0-16.0); White Blood Count 12.1 X10*3/uL (4.8-10.8)
[2022-02-24 08:15] LABS: Band Neutrophils Percent 7 % (3-5); Lymphocytes Percent Manual 8 % (20-40); Metamyelocytes Absolute 0.2 X10*3/uL; Metamyelocytes Percent 2 %; Monocytes Absolute Manual 0.5 X10*3/uL (0.1-1.2); Monocytes Percent Manual 4 % (2-11); Myelocytes Absolute 0.1 X10*/uL; Myelocytes Percent 1 %; Neutrophils Absolute Manual 10.3 X10*3/uL (2.0-8.3); Neutrophils Percent Manual 78 % (45-73)
[2022-02-24 08:17] LABS: Hypochromasia 1+ (5-14) /OIF; Large Platelet PRESENT; Platelet Estimate NORMAL (NORMAL); Platelet Morphology Comment NOTED; RBC Morphology NOTED
[2022-02-24 08:18] LABS: Polychromasia 1+ (0-2) /OIF
[2022-02-24 08:19] LABS: Basophilic Stippling 1+ (0-2) /OIF
[2022-02-24] MEDS: Metoprolol Tartrate 25 MG TABLET 75 MG PO ×2 (08:54→22:47)
[2022-02-24] MEDS: Chlorhexidine Gluc Oral Rinse 15 ML MOUTHWASH BUCCAL ×3 (08:54→22:55)
--- NOTE | 2022-02-24 11:16 | MHC.CLN ---
F/U PT REMAINS INTUBATED AND SEDATED TF CURRENTLY RUNNING PROMOTE AT MAX GOAL RATE 45ML/HR WITH 120ML FREE WATER FLUSHES Q 6 HRS TO PROVIDE 1080KCALS (1453KCALS WITH SEDATION; 25KCALS/KG BASED ON IBW), 67.5G PROTEIN (1.1G/KG), 1386ML TOTAL WATER FROM FORMULA AND FLUSHES (24ML/KG BASED ON IBW) NOTED RENAL INDICES INCREASING RECOMMEND CHANGING FORMULA TO NEPRO 1.8 AT MAX GOAL RATE 30ML/HR WITH 240ML FREE WATER FLUSHES Q 6 HRS TO PROVIDE 1296KCALS, 58G PROTEIN (1.01G/KG BASED ON IBW), 1483ML TOTAL WATER FROM FORMULA AND FLUSHES (26ML/KG BASED ON IBW) MONITOR TOLERANCE, RESIDUALS AND LYTES
[2022-02-24 11:52] LABS: Glucose, Whole Blood 193 mg/dL (60-115)
--- NOTE | 2022-02-24 13:52 | PM.PNNEP ---
Subjective Subjective Date of Service: 02/25/22 Interval history: Events noted Remains on vent Physical Exam Vital Signs: Vital Signs: Last Vital Signs Temp 100.4 F 02/24/22 13:00 Pulse 69 02/24/22 13:00 Resp 31 H 02/24/22 12:00 BP 134/71 02/24/22 13:00 Pulse Ox 90 L 02/24/22 13:00 O2 Del Method 02/24/22 13:00 FiO2 50 02/24/22 13:00 BMI result Body Mass Index 38.0 Const: Other: Intubated. Sedated. Chest: Chest palpation & inspection: normal inspection of the chest Resp: Other: Lung auscultation revealed relatively clear breath sounds. Cardio: Other: JVP hard to assess. No murmurs noted. Regular and tachycardic. Rate: regular rate GI: Other: Obese. Soft. No fluid wave. : Other: Bryant in place with CYU Extrem: Other: No peripheral pitting edema Objective Data Labs CBC & Chem 7: 02/25/22 05:10 02/25/22 05:10 Labs: Laboratory Results - last 24 hr 02/20/22 02/23/22 02/23/22 13:17 16:15 16:15 WBC RBC Hgb Hct MCV MCH MCHC RDW Plt Count MPV Immature Gran % (Auto) Neut % (Auto) Lymph % (Auto) [place] % (Auto) Eos % (Auto) Baso % (Auto) Lymph # (Auto) [place] # (Auto) Eos # (Auto) Baso # (Auto) Abs Immat Gran (auto) Absolute Neuts (auto) Absolute Nucleated RBC Nucleated RBC % (auto) Neutrophils % (Manual) Band Neutrophils % Lymphocytes % (Manual) Monocytes % (Manual) Metamyelocytes % Myelocytes % Abs Neuts (Manual) Lymphocytes # (Manual) Monocytes # (Manual) Metamyelocytes # Myelocytes # Platelet Estimate Large Platelets Plt Morphology Comment RBC Morphology Polychromasia Hypochromasia Basophilic Stippling VBG pH VBG pCO2 VBG pO2 VBG HCO3 VBG O2 Saturation VBG Base Excess Sodium 146 H Potassium 3.3 Chloride 94 L Carbon Dioxide 32 H Anion Gap 23 H BUN 98 H Creatinine 3.09 H Estim Creat Clear Calc 21.3 Estimated GFR 15 POC Glucose Random Glucose 340 H Calcium 7.9 L Phosphorus Magnesium Albumin Abnorm Protein Band 1 TNP Abnorm Protein Band 2 TNP Abnorm Protein Band 3 TNP Vancomycin Trough 14.3 02/23/22 02/23/22 02/24/22 17:14 23:37 05:05 WBC RBC Hgb Hct MCV MCH MCHC RDW Plt Count MPV Immature Gran % (Auto) Neut % (Auto) Lymph % (Auto) [place] % (Auto) Eos % (Auto) Baso % (Auto) Lymph # (Auto) [place] # (Auto) Eos # (Auto) Baso # (Auto) Abs Immat Gran (auto) Absolute Neuts (auto) Absolute Nucleated RBC Nucleated RBC % (auto) Neutrophils % (Manual) Band Neutrophils % Lymphocytes % (Manual) Monocytes % (Manual) Metamyelocytes % Myelocytes % Abs Neuts (Manual) Lymphocytes # (Manual) Monocytes # (Manual) Metamyelocytes # Myelocytes # Platelet Estimate Large Platelets Plt Morphology Comment RBC Morphology Polychromasia Hypochromasia Basophilic Stippling VBG pH VBG pCO2 VBG pO2 VBG HCO3 VBG O2 Saturation VBG Base Excess Sodium 146 H Potassium 4.2 D Chloride 96 Carbon Dioxide 31 H Anion Gap 23 H BUN 109 H Creatinine 3.19 H Estim Creat Clear Calc 20.4 Estimated GFR 14 POC Glucose 311 H 318 H Random Glucose 300 H Calcium 8.0 L Phosphorus 3.2 Magnesium 2.4 Albumin 3.0 L Abnorm Protein Band 1 Abnorm Protein Band 2 Abnorm Protein Band 3 Vancomycin Trough 02/24/22 02/24/22 02/24/22 05:07 05:30 06:40 WBC 12.1 H RBC 3.36 L Hgb 9.5 L Hct 30.4 L MCV 90.5 MCH 28.3 MCHC 31.3 RDW 15.5 Plt Count 376 MPV 10.9 Immature Gran % (Auto) Cancelled Neut % (Auto) Cancelled Lymph % (Auto) Cancelled [place] % (Auto) Cancelled Eos % (Auto) Cancelled Baso % (Auto) Cancelled Lymph # (Auto) Cancelled [place] # (Auto) Cancelled Eos # (Auto) Cancelled Baso # (Auto) Cancelled Abs Immat Gran (auto) Cancelled Absolute Neuts (auto) Cancelled Absolute Nucleated RBC 0.050 H Nucleated RBC % (auto) 0.4 H Neutrophils % (Manual) 78 H Band Neutrophils % 7 H Lymphocytes % (Manual) 8 L Monocytes % (Manual) 4 Metamyelocytes % 2 Myelocytes % 1 Abs Neuts (Manual) 10.3 H Lymphocytes # (Manual) 1.0 L Monocytes # (Manual) 0.5 Metamyelocytes # 0.2 Myelocytes # 0.1 Platelet Estimate NORMAL Large Platelets PRESENT Plt Morphology Comment NOTED RBC Morphology NOTED Polychromasia 1+ (0-2) Hypochromasia 1+ (5-14) Basophilic Stippling 1+ (0-2) VBG pH 7.51 H VBG pCO2 45 VBG pO2 47 VBG HCO3 36 H VBG O2 Saturation 69.0 VBG Base Excess 12.0 Sodium Potassium Chloride Carbon Dioxide Anion Gap BUN Creatinine Estim Creat Clear Calc Estimated GFR POC Glucose 302 H Random Glucose Calcium Phosphorus Magnesium Albumin Abnorm Protein Band 1 Abnorm Protein Band 2 Abnorm Protein Band 3 Vancomycin Trough 02/24/22 11:48 WBC RBC Hgb Hct MCV MCH MCHC RDW Plt Count MPV Immature Gran % (Auto) Neut % (Auto) Lymph % (Auto) [place] % (Auto) Eos % (Auto) Baso % (Auto) Lymph # (Auto) [place] # (Auto) Eos # (Auto) Baso # (Auto) Abs Immat Gran (auto) Absolute Neuts (auto) Absolute Nucleated RBC Nucleated RBC % (auto) Neutrophils % (Manual) Band Neutrophils % Lymphocytes % (Manual) Monocytes % (Manual) Metamyelocytes % Myelocytes % Abs Neuts (Manual) Lymphocytes # (Manual) Monocytes # (Manual) Metamyelocytes # Myelocytes # Platelet Estimate Large Platelets Plt Morphology Comment RBC Morphology Polychromasia Hypochromasia Basophilic Stippling VBG pH VBG pCO2 VBG pO2 VBG HCO3 VBG O2 Saturation VBG Base Excess Sodium Potassium Chloride Carbon Dioxide Anion Gap BUN Creatinine Estim Creat Clear Calc Estimated GFR POC Glucose 193 H Random Glucose Calcium Phosphorus Magnesium Albumin Abnorm Protein Band 1 Abnorm Protein Band 2 Abnorm Protein Band 3 Vancomycin Trough Microbiology Microbiology Results: Microbiology 02/23/22 09:15 Sputum - Suctioned Gram Stain - Final 02/23/22 09:15 Sputum - Suctioned Sputum Culture - Preliminary Culture in progress. 02/18/22 15:05 Blood - Venous Blood Culture - Final No growth after 5 days. 02/18/22 15:05 Blood - Venous Blood Culture - Final No growth after 5 days. 02/19/22 09:47 Sputum - Suctioned Gram Stain - Final 02/19/22 09:47 Sputum - Suctioned Sputum Culture - Final 02/18/22 Unknown Urine clean catch - Urine smith top Urine Culture - Final Escherichia coli Procedures Date of Service Date of Service: 02/24/22 Assessment & Plan Assessment and plan (1) Congestive heart failure: Status: Acute (2) Respiratory failure: Status: Acute (3) KENJI (acute kidney injury): Status: Acute (4) Stage 3a chronic kidney disease (CKD): Status: Acute Plan 76-year-old female with CKD stage IIIa (BL Cr 1.3mg/dL) 2/2 left renal atrophy and yuko-vascular disease (followed by Dr Hi), emphysema (O2 dependent), HFpEF, Hypothyroidism, A. fib (no anticoagulated), HTN who presented with 3 days worth of shortness of breath and weakness with an increasing home O2 requirement. Course complicated by acute hypoxic respiratory failure, AGMA, Renal Failure, and volume overload. 1. Non-oliguric KENJI on CKD stage IIIa BL Cr 1.3mg/dL, in the setting of known left renal atrophy and chronic yuko-vascular disease. KENJI now with Cr 1.9 -> 3.26 -> 3.5mg/dL in the setting of hemodynamic instability. Volume status difficult to ascertain. Etiologies of KENJI: - Hemodynamic stress, hypoperfusion in the setting of hypotension. Hyalinuria and some granular casts on UA fits a perfusion etiology to KENJI - No evidence of GN. Non-proteinuric. No hematuria. No active sediment - Obstruction ruled out. 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 Time Spent With Patient Time: Total time spent is greater than 50% in coordination of care (as documented) at patient's floor/unit and/or counseling patient: Progress Note: Quality Stroke Does the patient have a stroke diagnosis?: No
[2022-02-24 16:44] LABS: Anion Gap 23 (12-20); Blood Urea Nitrogen 110 mg/dL (9-16); Calcium 8.2 mg/dL (8.4-10.2); Carbon Dioxide 31 mmol/L (22-29); Chloride 97 mmol/L (96-108); Creatinine Clr Calc Pharmacy 22.6; Estimated Glomerular Filt Rate 16; Glucose Random 150 mg/dL (60-115); Potassium 3.8 mmol/L (3.3-5.1); Sodium 147 mmol/L (135-145); Vancomycin Trough 15.6 mcg/mL (10.0-20.0)
[2022-02-24 17:24] LABS: Glucose, Whole Blood 147 mg/dL (60-115)
--- NOTE | 2022-02-24 18:02 | PM.CCPN ---
Subjective Subjective Date of Service: 02/24/22 Interval History: 76-year-old morbidly obese female with chronic stage II renal failure but acute stage IV in the face of sepsis from left lower lobe consolidative pneumonia and had been on a combination of vancomycin and Zosyn in addition developed acute diastolic CHF in part iatrogenic and we with a Lasix drip for 2 days put out more than 8 L CVP coming down to 7 and today that allowed a sedation holiday awakening with good cognitive function and she tolerated several hours of pressure support at 10/5 and then started to develop flagging tidal volume so we recent dated and put her back to rest on assist control and that was explained to the family that we would re-attempt in the morning and at this point after 5 days of of treatment and nothing growing from any of her cultures IA stopping antibiotics for the sake of the renal function and I asked 1 of the renal physicians to look in on her and make further recommendations but if temperature comes back I will simply re-culture and then start her on something the potentially like meropenem that is less nephrotoxic Critical Care Time (minutes): 45 Physical Exam Vital Signs: Vital Signs: Last Vital Signs Temp 100.8 F H 02/24/22 17:00 Pulse 81 02/24/22 17:00 Resp 18 02/24/22 17:00 BP 147/76 H 02/24/22 17:00 Pulse Ox 90 L 02/24/22 17:00 O2 Del Method 02/24/22 17:00 FiO2 50 02/24/22 17:00 BMI result Body Mass Index 38.0 Awaken with good cognitive function good tolerance for several hours of pressure support ventilation moving all 4 extremities She has got a moderate degree of reduced systolic left ventricular reserve as well as diastolic failure by bedside echo with segmental akinesis of the inferior basal wall consistent with an infarct of on dated age But CVP is been stable to 8 Abdomen benign tolerating feedings Chest without adventitious sounds no accessory muscle use Objective Data Labs CBC & Chem 7: 02/24/22 06:40 02/24/22 16:10 Labs: Laboratory Results - last 24 hr 02/20/22 02/23/22 02/24/22 13:17 23:37 05:05 WBC RBC Hgb Hct MCV MCH MCHC RDW Plt Count MPV Immature Gran % (Auto) Neut % (Auto) Lymph % (Auto) [place] % (Auto) Eos % (Auto) Baso % (Auto) Lymph # (Auto) [place] # (Auto) Eos # (Auto) Baso # (Auto) Abs Immat Gran (auto) Absolute Neuts (auto) Absolute Nucleated RBC Nucleated RBC % (auto) Neutrophils % (Manual) Band Neutrophils % Lymphocytes % (Manual) Monocytes % (Manual) Metamyelocytes % Myelocytes % Abs Neuts (Manual) Lymphocytes # (Manual) Monocytes # (Manual) Metamyelocytes # Myelocytes # Platelet Estimate Large Platelets Plt Morphology Comment RBC Morphology Polychromasia Hypochromasia Basophilic Stippling VBG pH VBG pCO2 VBG pO2 VBG HCO3 VBG O2 Saturation VBG Base Excess Sodium 146 H Potassium 4.2 D Chloride 96 Carbon Dioxide 31 H Anion Gap 23 H BUN 109 H Creatinine 3.19 H Estim Creat Clear Calc 20.4 Estimated GFR 14 POC Glucose 318 H Random Glucose 300 H Calcium 8.0 L Phosphorus 3.2 Magnesium 2.4 Albumin 3.0 L Abnorm Protein Band 1 TNP Abnorm Protein Band 2 TNP Abnorm Protein Band 3 TNP Vancomycin Trough 02/24/22 02/24/22 02/24/22 05:07 05:30 06:40 WBC 12.1 H RBC 3.36 L Hgb 9.5 L Hct 30.4 L MCV 90.5 MCH 28.3 MCHC 31.3 RDW 15.5 Plt Count 376 MPV 10.9 Immature Gran % (Auto) Cancelled Neut % (Auto) Cancelled Lymph % (Auto) Cancelled [place] % (Auto) Cancelled Eos % (Auto) Cancelled Baso % (Auto) Cancelled Lymph # (Auto) Cancelled [place] # (Auto) Cancelled Eos # (Auto) Cancelled Baso # (Auto) Cancelled Abs Immat Gran (auto) Cancelled Absolute Neuts (auto) Cancelled Absolute Nucleated RBC 0.050 H Nucleated RBC % (auto) 0.4 H Neutrophils % (Manual) 78 H Band Neutrophils % 7 H Lymphocytes % (Manual) 8 L Monocytes % (Manual) 4 Metamyelocytes % 2 Myelocytes % 1 Abs Neuts (Manual) 10.3 H Lymphocytes # (Manual) 1.0 L Monocytes # (Manual) 0.5 Metamyelocytes # 0.2 Myelocytes # 0.1 Platelet Estimate NORMAL Large Platelets PRESENT Plt Morphology Comment NOTED RBC Morphology NOTED Polychromasia 1+ (0-2) Hypochromasia 1+ (5-14) Basophilic Stippling 1+ (0-2) VBG pH 7.51 H VBG pCO2 45 VBG pO2 47 VBG HCO3 36 H VBG O2 Saturation 69.0 VBG Base Excess 12.0 Sodium Potassium Chloride Carbon Dioxide Anion Gap BUN Creatinine Estim Creat Clear Calc Estimated GFR POC Glucose 302 H Random Glucose Calcium Phosphorus Magnesium Albumin Abnorm Protein Band 1 Abnorm Protein Band 2 Abnorm Protein Band 3 Vancomycin Trough 02/24/22 02/24/22 02/24/22 11:48 16:10 16:10 WBC RBC Hgb Hct MCV MCH MCHC RDW Plt Count MPV Immature Gran % (Auto) Neut % (Auto) Lymph % (Auto) [place] % (Auto) Eos % (Auto) Baso % (Auto) Lymph # (Auto) [place] # (Auto) Eos # (Auto) Baso # (Auto) Abs Immat Gran (auto) Absolute Neuts (auto) Absolute Nucleated RBC Nucleated RBC % (auto) Neutrophils % (Manual) Band Neutrophils % Lymphocytes % (Manual) Monocytes % (Manual) Metamyelocytes % Myelocytes % Abs Neuts (Manual) Lymphocytes # (Manual) Monocytes # (Manual) Metamyelocytes # Myelocytes # Platelet Estimate Large Platelets Plt Morphology Comment RBC Morphology Polychromasia Hypochromasia Basophilic Stippling VBG pH VBG pCO2 VBG pO2 VBG HCO3 VBG O2 Saturation VBG Base Excess Sodium 147 H Potassium 3.8 Chloride 97 Carbon Dioxide 31 H Anion Gap 23 H BUN 110 H Creatinine 2.88 H Estim Creat Clear Calc 22.6 Estimated GFR 16 POC Glucose 193 H Random Glucose 150 H Calcium 8.2 L Phosphorus Magnesium Albumin Abnorm Protein Band 1 Abnorm Protein Band 2 Abnorm Protein Band 3 Vancomycin Trough 15.6 02/24/22 17:20 WBC RBC Hgb Hct MCV MCH MCHC RDW Plt Count MPV Immature Gran % (Auto) Neut % (Auto) Lymph % (Auto) [place] % (Auto) Eos % (Auto) Baso % (Auto) Lymph # (Auto) [place] # (Auto) Eos # (Auto) Baso # (Auto) Abs Immat Gran (auto) Absolute Neuts (auto) Absolute Nucleated RBC Nucleated RBC % (auto) Neutrophils % (Manual) Band Neutrophils % Lymphocytes % (Manual) Monocytes % (Manual) Metamyelocytes % Myelocytes % Abs Neuts (Manual) Lymphocytes # (Manual) Monocytes # (Manual) Metamyelocytes # Myelocytes # Platelet Estimate Large Platelets Plt Morphology Comment RBC Morphology Polychromasia Hypochromasia Basophilic Stippling VBG pH VBG pCO2 VBG pO2 VBG HCO3 VBG O2 Saturation VBG Base Excess Sodium Potassium Chloride Carbon Dioxide Anion Gap BUN Creatinine Estim Creat Clear Calc Estimated GFR POC Glucose 147 H Random Glucose Calcium Phosphorus Magnesium Albumin Abnorm Protein Band 1 Abnorm Protein Band 2 Abnorm Protein Band 3 Vancomycin Trough Microbiology Microbiology Results: Microbiology 02/23/22 09:15 Sputum - Suctioned Gram Stain - Final 02/23/22 09:15 Sputum - Suctioned Sputum Culture - Preliminary Culture in progress. 02/18/22 15:05 Blood - Venous Blood Culture - Final No growth after 5 days. 02/18/22 15:05 Blood - Venous Blood Culture - Final No growth after 5 days. 02/19/22 09:47 Sputum - Suctioned Gram Stain - Final 02/19/22 09:47 Sputum - Suctioned Sputum Culture - Final 02/18/22 Unknown Urine clean catch - Urine smith top Urine Culture - Final Escherichia coli Progress Note: A&P Assessment and plan (1) Atrial fibrillation with rapid ventricular response: Status: Acute (2) Congestive heart failure with LV diastolic dysfunction, NYHA class 1: Status: Acute (3) Congestive heart failure with left ventricular systolic dysfunction (LVSD): Status: Acute (4) Urinary tract infection: Status: Acute (5) Metabolic encephalopathy: Status: Acute (6) Stage 3a chronic kidney disease (CKD): Status: Acute (7) KENJI (acute kidney injury): Status: Acute (8) Congestive heart failure: Status: Acute (9) Pneumonia: Status: Acute (10) Respiratory failure: Status: Acute Plan Plan is to try again sedation holiday in the morning follow urine output central venous pressure and if a good cognitive function again try pressure support once more Quality Stroke Does the patient have a stroke diagnosis?: No VTE Prior VTE?: No VTE Risk Level:: Medical - moderate - high VTE Device Contraindication: N/A - Device Ordered VTE Drug Contraindication: N/A - Med Ordered
[2022-02-24] MEDS: Acetaminophen Oral Liquid 650 MG/20.3 ML SOLUTION OG-TUBE (22:46)
[2022-02-24 23:00] LABS: Lactic Acid 1.2 mmol/L (0.5-2.0)
[2022-02-24 23:48] LABS: Glucose, Whole Blood 161 mg/dL (60-115)
[2022-02-25] VITALS (29 sets, daily range): BP systolic 110–167; BP diastolic 53–94; PULSE 66–96; RESP 15–23; TEMP 34.3–38.6; O2SAT 85–97; BMI 37.0
[2022-02-25] MEDS: vancomycin HCL 500 MG in 0.9 % Sodium Chloride 100 ML 110 MG IV (00:20)
--- NOTE | 2022-02-25 00:20 | PC.NURSE ---
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
[2022-02-25] MEDS: Insulin Lispro 100 UNIT/ML 3 ML VIAL SUBCUT ×2 (00:21→12:10)
[2022-02-25] MEDS: propofoL 1,000 MG/100 ML VIAL 21.23 MG IVCONT ×2 (00:52→04:44)
[2022-02-25 05:17] LABS: VBG Base Excess 8.9 mmol/L; VBG HCO3 33 mmol/L (22-26); VBG pCO2 44 mmHg; VBG pH 7.48 (7.32-7.43); VBG pO2 40 mmHg
[2022-02-25 05:21] LABS: Venous Blood Gas Refer to POC result
[2022-02-25 05:42] LABS: Glucose, Whole Blood 132 mg/dL (60-115)
[2022-02-25 05:45] LABS: Hematocrit 30.8 % (37.0-47.0); Hemoglobin 9.7 g/dl (12.0-16.0); Mean Corpuscular HGB Conc 31.5 g/dl (31.0-35.0); Mean Corpuscular Hemoglobin 29.2 pg (27.0-33.0); Mean Corpuscular Volume 92.8 fL (80.0-98.0); Mean Platelet Volume 11.3 fL (9.4-12.3); NRBC Pct Auto 0.5 /100WBC (0.0-0.2); Platelet Count 407 X10*3/uL (160-400); Red Blood Count 3.32 X10*6/uL (4.20-5.50); White Blood Count 14.6 X10*3/uL (4.8-10.8)
[2022-02-25 06:02] LABS: Anion Gap 20 (12-20); Blood Urea Nitrogen 106 mg/dL (9-16); Calcium 8.4 mg/dL (8.4-10.2); Carbon Dioxide 33 mmol/L (22-29); Chloride 96 mmol/L (96-108); Creatinine Clr Calc Pharmacy 24.5; Estimated Glomerular Filt Rate 18; Glucose Random 149 mg/dL (60-115); Magnesium 2.3 mg/dL (1.6-2.6); Phosphorus 4.4 mg/dL (2.7-4.5); Potassium 3.9 mmol/L (3.3-5.1); Sodium 145 mmol/L (135-145)
[2022-02-25] MEDS: Heparin Sodium,Porcine 5,000 UNIT/ML VIAL 5000 UNIT SUBCUT ×3 (06:09→21:38)
[2022-02-25 06:19] LABS: Band Neutrophils Percent 6 % (3-5); Giant Platelet PRESENT; Lymphocytes Absolute Manual 2.2 X10*3/uL (1.2-4.9); Lymphocytes Percent Manual 15 % (20-40); Macrocytosis 1+ (5-14) /OIF; Metamyelocytes Absolute 0.4 X10*3/uL; Metamyelocytes Percent 3 %; Monocytes Absolute Manual 0.7 X10*3/uL (0.1-1.2); Monocytes Percent Manual 5 % (2-11); Myelocytes Absolute 0.3 X10*/uL; Myelocytes Percent 2 %; Neutrophils Percent Manual 69 % (45-73); Nucleated Red Blood Cells 3 /100WBC (0-0); Platelet Estimate SLIGHTLY INCREASED (NORMAL); Platelet Morphology Comment NORMAL; RBC Morphology NOTED
[2022-02-25 06:20] LABS: Ovalocytes 1+ (5-14) /OIF; Polychromasia 1+ (0-2) /OIF; Smudge Cells PRESENT
[2022-02-25] MEDS: Metoprolol Tartrate 25 MG TABLET 75 MG PO ×2 (09:01→20:01)
[2022-02-25] MEDS: Chlorhexidine Gluc Oral Rinse 15 ML MOUTHWASH BUCCAL ×3 (09:01→20:01)
--- NOTE | 2022-02-25 10:26 | P.PNNP_ITS ---
Subjective Subjective Date of Service: 03/09/22 Interval history: Remains on vent. Marginal improvement in serum creatinine. Physical Exam Vital Signs: Vital Signs: Last Vital Signs Temp 101.1 F H 02/25/22 09:00 Pulse 77 02/25/22 10:00 Resp 17 02/25/22 10:00 BP 147/68 H 02/25/22 10:00 Pulse Ox 95 02/25/22 10:00 O2 Del Method 02/25/22 10:00 FiO2 50 02/25/22 10:00 BMI result Body Mass Index 37.0 Const: Other: Intubated. Sedated. Chest: Chest palpation & inspection: normal inspection of the chest Resp: Other: Lung auscultation revealed relatively clear breath sounds. Cardio: Other: JVP hard to assess. No murmurs noted. Regular and tachycardic. Rate: regular rate GI: Other: Obese. Soft. No fluid wave. Extrem: Other: No peripheral pitting edema Objective Data Labs CBC & Chem 7: 03/03/22 07:02 03/05/22 06:16 Labs: Laboratory Results - last 24 hr 02/24/22 02/24/22 02/24/22 11:48 16:10 16:10 WBC RBC Hgb Hct MCV MCH MCHC RDW Plt Count MPV Immature Gran % (Auto) Neut % (Auto) Lymph % (Auto) [place] % (Auto) Eos % (Auto) Baso % (Auto) Lymph # (Auto) [place] # (Auto) Eos # (Auto) Baso # (Auto) Abs Immat Gran (auto) Absolute Neuts (auto) Absolute Nucleated RBC Nucleated RBC % (auto) Neutrophils % (Manual) Band Neutrophils % Lymphocytes % (Manual) Monocytes % (Manual) Metamyelocytes % Myelocytes % Abs Neuts (Manual) Lymphocytes # (Manual) Monocytes # (Manual) Metamyelocytes # Myelocytes # Nucleated RBCs Smudge Cells Platelet Estimate Giant Platelets Plt Morphology Comment RBC Morphology Polychromasia Macrocytosis Ovalocytes VBG pH VBG pCO2 VBG pO2 VBG HCO3 VBG O2 Saturation VBG Base Excess Sodium 147 H Potassium 3.8 Chloride 97 Carbon Dioxide 31 H Anion Gap 23 H BUN 110 H Creatinine 2.88 H Estim Creat Clear Calc 22.6 Estimated GFR 16 POC Glucose 193 H Random Glucose 150 H Lactic Acid Calcium 8.2 L Phosphorus Magnesium Vancomycin Trough 15.6 02/24/22 02/24/22 02/24/22 17:20 22:38 23:42 WBC RBC Hgb Hct MCV MCH MCHC RDW Plt Count MPV Immature Gran % (Auto) Neut % (Auto) Lymph % (Auto) [place] % (Auto) Eos % (Auto) Baso % (Auto) Lymph # (Auto) [place] # (Auto) Eos # (Auto) Baso # (Auto) Abs Immat Gran (auto) Absolute Neuts (auto) Absolute Nucleated RBC Nucleated RBC % (auto) Neutrophils % (Manual) Band Neutrophils % Lymphocytes % (Manual) Monocytes % (Manual) Metamyelocytes % Myelocytes % Abs Neuts (Manual) Lymphocytes # (Manual) Monocytes # (Manual) Metamyelocytes # Myelocytes # Nucleated RBCs Smudge Cells Platelet Estimate Giant Platelets Plt Morphology Comment RBC Morphology Polychromasia Macrocytosis Ovalocytes VBG pH VBG pCO2 VBG pO2 VBG HCO3 VBG O2 Saturation VBG Base Excess Sodium Potassium Chloride Carbon Dioxide Anion Gap BUN Creatinine Estim Creat Clear Calc Estimated GFR POC Glucose 147 H 161 H Random Glucose Lactic Acid 1.2 Calcium Phosphorus Magnesium Vancomycin Trough 02/25/22 02/25/22 02/25/22 05:10 05:10 05:10 WBC 14.6 H RBC 3.32 L Hgb 9.7 L Hct 30.8 L MCV 92.8 MCH 29.2 MCHC 31.5 RDW 16.0 Plt Count 407 H MPV 11.3 Immature Gran % (Auto) Cancelled Neut % (Auto) Cancelled Lymph % (Auto) Cancelled [place] % (Auto) Cancelled Eos % (Auto) Cancelled Baso % (Auto) Cancelled Lymph # (Auto) Cancelled [place] # (Auto) Cancelled Eos # (Auto) Cancelled Baso # (Auto) Cancelled Abs Immat Gran (auto) Cancelled Absolute Neuts (auto) Cancelled Absolute Nucleated RBC 0.070 H Nucleated RBC % (auto) 0.5 H Neutrophils % (Manual) 69 Band Neutrophils % 6 H Lymphocytes % (Manual) 15 L Monocytes % (Manual) 5 Metamyelocytes % 3 Myelocytes % 2 Abs Neuts (Manual) 11.0 H Lymphocytes # (Manual) 2.2 Monocytes # (Manual) 0.7 Metamyelocytes # 0.4 Myelocytes # 0.3 Nucleated RBCs 3 H Smudge Cells PRESENT Platelet Estimate SLIGHTLY INCREASED Giant Platelets PRESENT Plt Morphology Comment NORMAL RBC Morphology NOTED Polychromasia 1+ (0-2) Macrocytosis 1+ (5-14) Ovalocytes 1+ (5-14) VBG pH 7.48 H VBG pCO2 44 VBG pO2 40 VBG HCO3 33 H VBG O2 Saturation 59.0 VBG Base Excess 8.9 Sodium 145 Potassium 3.9 Chloride 96 Carbon Dioxide 33 H Anion Gap 20 BUN 106 H Creatinine 2.62 H Estim Creat Clear Calc 24.5 Estimated GFR 18 POC Glucose Random Glucose 149 H Lactic Acid Calcium 8.4 Phosphorus 4.4 Magnesium 2.3 Vancomycin Trough 02/25/22 05:36 WBC RBC Hgb Hct MCV MCH MCHC RDW Plt Count MPV Immature Gran % (Auto) Neut % (Auto) Lymph % (Auto) [place] % (Auto) Eos % (Auto) Baso % (Auto) Lymph # (Auto) [place] # (Auto) Eos # (Auto) Baso # (Auto) Abs Immat Gran (auto) Absolute Neuts (auto) Absolute Nucleated RBC Nucleated RBC % (auto) Neutrophils % (Manual) Band Neutrophils % Lymphocytes % (Manual) Monocytes % (Manual) Metamyelocytes % Myelocytes % Abs Neuts (Manual) Lymphocytes # (Manual) Monocytes # (Manual) Metamyelocytes # Myelocytes # Nucleated RBCs Smudge Cells Platelet Estimate Giant Platelets Plt Morphology Comment RBC Morphology Polychromasia Macrocytosis Ovalocytes VBG pH VBG pCO2 VBG pO2 VBG HCO3 VBG O2 Saturation VBG Base Excess Sodium Potassium Chloride Carbon Dioxide Anion Gap BUN Creatinine Estim Creat Clear Calc Estimated GFR POC Glucose 132 H Random Glucose Lactic Acid Calcium Phosphorus Magnesium Vancomycin Trough Microbiology Microbiology Results: Microbiology 02/23/22 09:15 Sputum - Suctioned Gram Stain - Final 02/23/22 09:15 Sputum - Suctioned Sputum Culture - Preliminary Culture in progress. 02/18/22 15:05 Blood - Venous Blood Culture - Final No growth after 5 days. 02/18/22 15:05 Blood - Venous Blood Culture - Final No growth after 5 days. 02/19/22 09:47 Sputum - Suctioned Gram Stain - Final 02/19/22 09:47 Sputum - Suctioned Sputum Culture - Final 02/18/22 Unknown Urine clean catch - Urine smith top Urine Culture - Final Escherichia coli Procedures Date of Service Date of Service: 02/25/22 Assessment & Plan Assessment and plan (1) Congestive heart failure: Status: Acute (2) Respiratory failure: Status: Acute (3) KENJI (acute kidney injury): Status: Acute (4) Stage 3a chronic kidney disease (CKD): Status: Acute Plan 76-year-old female with CKD stage IIIa (BL Cr 1.3mg/dL) 2/2 left renal atrophy and yuko-vascular disease (followed by Dr Hi), emphysema (O2 dependent), HFpEF, Hypothyroidism, A. fib (no anticoagulated), HTN who presented with 3 days worth of shortness of breath and weakness with an increasing home O2 requirement. Course complicated by acute hypoxic respiratory failure, AGMA, Renal Failure, and volume overload. 1. Non-oliguric KENJI on CKD stage IIIa BL Cr 1.3mg/dL, in the setting of known left renal atrophy and chronic yuko- vascular disease. KENJI now with Cr 1.9 -> 3.26 -> 3.5mg/dL in the setting of hemodynamic instabilit y, urine output has improved and creatinine is trending down. Etiologies of KENJI: - Hemodynamic stress, hypoperfusion in the setting of hypotension. Hyalinuria and some granular casts on UA fits a perfusion etiology to KENJI - No evidence of GN. Non-proteinuric. No hematuria. No active sediment - Obstruction ruled out. 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 Progress Note: Quality Stroke Does the patient have a stroke diagnosis?: No
[2022-02-25 12:02] LABS: Glucose, Whole Blood 159 mg/dL (60-115)
[2022-02-25 12:37] LABS: Anti Nuclear Antibody Screen NEGATIVE (NEGATIVE)
[2022-02-25] MEDS: propofoL 1,000 MG/100 ML VIAL 10.61 MG IVCONT ×2 (12:45→18:42)
--- NOTE | 2022-02-25 13:03 | PM.CCPN ---
Subjective Subjective Date of Service: 02/25/22 Interval History: 76-year-old morbidly obese female with longstanding smoking related COPD with oxygen dependence presents with encephalopathy from acute on chronic hypoxemic respiratory failure with the left lower lobe consolidation empirically started on antibiotics and with a chronic atrial fibrillation and what appeared to me initially by bedside echo to be dysfunctional heart with possible evidence of an inferior basal myocardial infarct of und a today age and mild relative diffuse hypokinesis otherwise ejection fraction in the 40s she did develop but diastolic CHF in and see 3rd space fluid and post diuresis did very well and has managed to high 2s successful sedation holidays with return of cognitive function both times failing to wean from the ventilator and having to be resedated In addition we we spiked a low-grade temperature of a 101 degrees and sputum seems to be growing Staph aureus in addition to the E coli urinary tract infection that she presented with She has relatively modest minutes ventilatory requirements only about 7.5 liters/minute but FiO2 requirements remain elevated at 50% Critical Care Time (minutes): 45 Physical Exam Vital Signs: Vital Signs: Last Vital Signs Temp 101.2 F H 02/25/22 12:00 Pulse 80 02/25/22 12:00 Resp 23 H 02/25/22 12:00 BP 158/94 H 02/25/22 12:00 Pulse Ox 87 L 02/25/22 12:00 O2 Del Method 02/25/22 12:00 FiO2 50 02/25/22 12:00 BMI result Body Mass Index 37.0 She awoke with appropriate cognitive function but less animated than the day before Benign abdomen no organomegaly Chest with diminished bilateral breath sounds Cardiac exam adequate bilateral carotid upstrokes no gallops CVP 7 Skin intact Objective Data Labs CBC & Chem 7: 02/26/22 04:30 02/26/22 04:30 Labs: Laboratory Results - last 24 hr 02/22/22 02/24/22 02/24/22 11:16 16:10 16:10 WBC RBC Hgb Hct MCV MCH MCHC RDW Plt Count MPV Immature Gran % (Auto) Neut % (Auto) Lymph % (Auto) [place] % (Auto) Eos % (Auto) Baso % (Auto) Lymph # (Auto) [place] # (Auto) Eos # (Auto) Baso # (Auto) Abs Immat Gran (auto) Absolute Neuts (auto) Absolute Nucleated RBC Nucleated RBC % (auto) Neutrophils % (Manual) Band Neutrophils % Lymphocytes % (Manual) Monocytes % (Manual) Metamyelocytes % Myelocytes % Abs Neuts (Manual) Lymphocytes # (Manual) Monocytes # (Manual) Metamyelocytes # Myelocytes # Nucleated RBCs Smudge Cells Platelet Estimate Giant Platelets Plt Morphology Comment RBC Morphology Polychromasia Macrocytosis Ovalocytes VBG pH VBG pCO2 VBG pO2 VBG HCO3 VBG O2 Saturation VBG Base Excess Sodium 147 H Potassium 3.8 Chloride 97 Carbon Dioxide 31 H Anion Gap 23 H BUN 110 H Creatinine 2.88 H Estim Creat Clear Calc 22.6 Estimated GFR 16 POC Glucose Random Glucose 150 H Lactic Acid Calcium 8.2 L Phosphorus Magnesium Vancomycin Trough 15.6 KHUSHI Screen NEGATIVE 02/24/22 02/24/22 02/24/22 17:20 22:38 23:42 WBC RBC Hgb Hct MCV MCH MCHC RDW Plt Count MPV Immature Gran % (Auto) Neut % (Auto) Lymph % (Auto) [place] % (Auto) Eos % (Auto) Baso % (Auto) Lymph # (Auto) [place] # (Auto) Eos # (Auto) Baso # (Auto) Abs Immat Gran (auto) Absolute Neuts (auto) Absolute Nucleated RBC Nucleated RBC % (auto) Neutrophils % (Manual) Band Neutrophils % Lymphocytes % (Manual) Monocytes % (Manual) Metamyelocytes % Myelocytes % Abs Neuts (Manual) Lymphocytes # (Manual) Monocytes # (Manual) Metamyelocytes # Myelocytes # Nucleated RBCs Smudge Cells Platelet Estimate Giant Platelets Plt Morphology Comment RBC Morphology Polychromasia Macrocytosis Ovalocytes VBG pH VBG pCO2 VBG pO2 VBG HCO3 VBG O2 Saturation VBG Base Excess Sodium Potassium Chloride Carbon Dioxide Anion Gap BUN Creatinine Estim Creat Clear Calc Estimated GFR POC Glucose 147 H 161 H Random Glucose Lactic Acid 1.2 Calcium Phosphorus Magnesium Vancomycin Trough KHUSHI Screen 02/25/22 02/25/22 02/25/22 05:10 05:10 05:10 WBC 14.6 H RBC 3.32 L Hgb 9.7 L Hct 30.8 L MCV 92.8 MCH 29.2 MCHC 31.5 RDW 16.0 Plt Count 407 H MPV 11.3 Immature Gran % (Auto) Cancelled Neut % (Auto) Cancelled Lymph % (Auto) Cancelled [place] % (Auto) Cancelled Eos % (Auto) Cancelled Baso % (Auto) Cancelled Lymph # (Auto) Cancelled [place] # (Auto) Cancelled Eos # (Auto) Cancelled Baso # (Auto) Cancelled Abs Immat Gran (auto) Cancelled Absolute Neuts (auto) Cancelled Absolute Nucleated RBC 0.070 H Nucleated RBC % (auto) 0.5 H Neutrophils % (Manual) 69 Band Neutrophils % 6 H Lymphocytes % (Manual) 15 L Monocytes % (Manual) 5 Metamyelocytes % 3 Myelocytes % 2 Abs Neuts (Manual) 11.0 H Lymphocytes # (Manual) 2.2 Monocytes # (Manual) 0.7 Metamyelocytes # 0.4 Myelocytes # 0.3 Nucleated RBCs 3 H Smudge Cells PRESENT Platelet Estimate SLIGHTLY INCREASED Giant Platelets PRESENT Plt Morphology Comment NORMAL RBC Morphology NOTED Polychromasia 1+ (0-2) Macrocytosis 1+ (5-14) Ovalocytes 1+ (5-14) VBG pH 7.48 H VBG pCO2 44 VBG pO2 40 VBG HCO3 33 H VBG O2 Saturation 59.0 VBG Base Excess 8.9 Sodium 145 Potassium 3.9 Chloride 96 Carbon Dioxide 33 H Anion Gap 20 BUN 106 H Creatinine 2.62 H Estim Creat Clear Calc 24.5 Estimated GFR 18 POC Glucose Random Glucose 149 H Lactic Acid Calcium 8.4 Phosphorus 4.4 Magnesium 2.3 Vancomycin Trough KHUSHI Screen 02/25/22 02/25/22 05:36 11:56 WBC RBC Hgb Hct MCV MCH MCHC RDW Plt Count MPV Immature Gran % (Auto) Neut % (Auto) Lymph % (Auto) [place] % (Auto) Eos % (Auto) Baso % (Auto) Lymph # (Auto) [place] # (Auto) Eos # (Auto) Baso # (Auto) Abs Immat Gran (auto) Absolute Neuts (auto) Absolute Nucleated RBC Nucleated RBC % (auto) Neutrophils % (Manual) Band Neutrophils % Lymphocytes % (Manual) Monocytes % (Manual) Metamyelocytes % Myelocytes % Abs Neuts (Manual) Lymphocytes # (Manual) Monocytes # (Manual) Metamyelocytes # Myelocytes # Nucleated RBCs Smudge Cells Platelet Estimate Giant Platelets Plt Morphology Comment RBC Morphology Polychromasia Macrocytosis Ovalocytes VBG pH VBG pCO2 VBG pO2 VBG HCO3 VBG O2 Saturation VBG Base Excess Sodium Potassium Chloride Carbon Dioxide Anion Gap BUN Creatinine Estim Creat Clear Calc Estimated GFR POC Glucose 132 H 159 H Random Glucose Lactic Acid Calcium Phosphorus Magnesium Vancomycin Trough KHUSHI Screen Microbiology Microbiology Results: Microbiology 02/23/22 09:15 Sputum - Suctioned Gram Stain - Final 02/23/22 09:15 Sputum - Suctioned Sputum Culture - Preliminary Staphylococcus aureus 02/18/22 15:05 Blood - Venous Blood Culture - Final No growth after 5 days. 02/18/22 15:05 Blood - Venous Blood Culture - Final No growth after 5 days. 02/19/22 09:47 Sputum - Suctioned Gram Stain - Final 02/19/22 09:47 Sputum - Suctioned Sputum Culture - Final 02/18/22 Unknown Urine clean catch - Urine smith top Urine Culture - Final Escherichia coli Progress Note: A&P Assessment and plan (1) Atrial fibrillation with rapid ventricular response: Status: Acute (2) Congestive heart failure with LV diastolic dysfunction, NYHA class 1: Status: Acute (3) Congestive heart failure with left ventricular systolic dysfunction (LVSD): Status: Acute (4) Urinary tract infection: Status: Acute (5) Metabolic encephalopathy: Status: Acute (6) Stage 3a chronic kidney disease (CKD): Status: Acute (7) KENJI (acute kidney injury): Status: Acute (8) Congestive heart failure: Status: Acute (9) Pneumonia: Status: Acute (10) Respiratory failure: Status: Acute Plan The plan of course is to really sedate and to attempt again in the morning antibiotic coverage to try to minimize nephrotoxicity is going to be combined vancomycin and Levaquin Quality Stroke Does the patient have a stroke diagnosis?: No VTE Prior VTE?: No VTE Risk Level:: Medical - moderate - high VTE Device Contraindication: N/A - Device Ordered VTE Drug Contraindication: N/A - Med Ordered
--- NOTE | 2022-02-25 13:53 | HE.PHANOTE ---
RE ESTRELLA GIVING A SMALLER LOAD, 1500 MG THEN 500 Q24. LAST TIME TROUGH WAS ELEVATED ON THIS REGIMEN. WILL GET TROUGH AFTER 2 DOSES ETELVINA
--- NOTE | 2022-02-25 14:20 | MHC.CM.PN ---
Pt initially from [facility] but will likely require STR - broad referrals made: at this time, pt remains critical requiring ventilatory support in ICU. CM to follow for finalization of d/c planning.
[2022-02-25] MEDS: vancomycin HCL 1,500 MG in 0.9 % Sodium Chloride 500 ML 333.33 MG IV (15:30)
[2022-02-25] MEDS: levoFLOXacin/D5W 250 MG/50 ML PIGGYBACK 50 MG IV (15:30)
[2022-02-25 18:00] LABS: Glucose, Whole Blood 147 mg/dL (60-115)
--- NOTE | 2022-02-25 18:13 | PC.NURSE ---
SEDATION TURNED OFF AT 0917 CHANGED FROM AC TO PS 15/5 ON 50% AT 1141 PATIENT ABLE TO OPEN EYES, TRACK, NOD YES OR NO TO SIMPLE QUESTIONS AND FOLLOW COMMANDS PATIENTS 02 BEGAN TO DROP TO 83-86% - RT AND MD CALLED BEDSIDE TV 250-300S ENDED SEDATION VACATION AT 1245 AND VENT SETTINGS AC 16/400/8/60% TO MAINTAIN 02 GOAL 88-92% LEWIS REMOVED AT APPROX 0730, PUREWICK IN PLACE AND DRAINED 600 ML FROM [id number]. RECTAL TUBE REPLACED AT THE START OF SHIFT AND REMAINS PATENT AND DRAINING AT THIS TIME PATIENT OFF UNIT FOR CT SCAN THIS EVENING BATHED, FREQUENT ORAL CARE, Q2HR REPO, PREAVLON SYSTEM WITH PILLOWS, WEDGES AND HEELBOS UTILIZED. PICTURE OBTAINED TO SKIN TEAR/SLIT TO COCCYX - BARRIER CREAM AND PINK FOAM APPLIED FAMILY BEDSIDE TO VISIT AND UPDATED BY AND THIS RN
[2022-02-26] VITALS (28 sets, daily range): BP systolic 102–163; BP diastolic 55–95; PULSE 60–83; RESP 9–28; TEMP 34.9–37.3; O2SAT 91–98; BMI 37.9
[2022-02-26 00:18] LABS: Glucose, Whole Blood 146 mg/dL (60-115)
[2022-02-26] MEDS: propofoL 1,000 MG/100 ML VIAL 10.61 MG IVCONT (01:41)
[2022-02-26 04:39] LABS: VBG Base Excess 8.2 mmol/L; VBG HCO3 32 mmol/L (22-26); VBG pCO2 44 mmHg; VBG pH 7.47 (7.32-7.43); VBG pO2 41 mmHg
[2022-02-26 04:51] LABS: Hematocrit 32.4 % (37.0-47.0); Mean Corpuscular HGB Conc 30.9 g/dl (31.0-35.0); Mean Corpuscular Hemoglobin 28.5 pg (27.0-33.0); Mean Corpuscular Volume 92.3 fL (80.0-98.0); Mean Platelet Volume 10.7 fL (9.4-12.3); NRBC Pct Auto 0.3 /100WBC (0.0-0.2); Platelet Count 398 X10*3/uL (160-400); Red Blood Count 3.51 X10*6/uL (4.20-5.50); Red Cell Distribution Width 15.9 % (11.0-16.0); Venous Blood Gas Refer to POC result; White Blood Count 13.8 X10*3/uL (4.8-10.8)
[2022-02-26 05:10] LABS: Alanine Aminotransferase 69 U/L (0-31); Albumin Level 2.9 g/dL (3.5-5.0); Alkaline Phosphatase 121 U/L (39-117); Anion Gap 19 (12-20); Aspartate Amino Transferase 85 U/L (5-31); Bilirubin Total 0.4 mg/dL (0.0-1.0); Blood Urea Nitrogen 91 mg/dL (9-16); Calcium 8.7 mg/dL (8.4-10.2); Carbon Dioxide 31 mmol/L (22-29); Chloride 100 mmol/L (96-108); Creatinine Clr Calc Pharmacy 32.8; Estimated Glomerular Filt Rate 25; Glucose Random 172 mg/dL (60-115); Potassium 3.8 mmol/L (3.3-5.1); Sodium 146 mmol/L (135-145); Total Protein 5.6 g/dL (6.5-8.0)
[2022-02-26 05:31] LABS: Band Neutrophils Percent 4 % (3-5); Large Platelet PRESENT; Lymphocytes Absolute Manual 1.2 X10*3/uL (1.2-4.9); Lymphocytes Percent Manual 9 % (20-40); Macrocytosis 1+ (5-14) /OIF; Metamyelocytes Absolute 0.1 X10*3/uL; Metamyelocytes Percent 1 %; Monocytes Absolute Manual 1.1 X10*3/uL (0.1-1.2); Monocytes Percent Manual 8 % (2-11); Neutrophils Absolute Manual 11.3 X10*3/uL (2.0-8.3); Neutrophils Percent Manual 78 % (45-73); Ovalocytes 1+ (5-14) /OIF; Platelet Estimate NORMAL (NORMAL); Platelet Morphology Comment NORMAL; RBC Morphology NOTED
[2022-02-26] MEDS: Heparin Sodium,Porcine 5,000 UNIT/ML VIAL 5000 UNIT SUBCUT ×3 (05:31→21:16)
[2022-02-26 05:32] LABS: Basophilic Stippling 1+ (0-2) /OIF; Polychromasia 1+ (0-2) /OIF; Smudge Cells PRESENT
[2022-02-26 05:38] LABS: Glucose, Whole Blood 153 mg/dL (60-115)
[2022-02-26] MEDS: Insulin Lispro 100 UNIT/ML 3 ML VIAL SUBCUT ×2 (06:10→12:49)
--- NOTE | 2022-02-26 07:35 | HE.PHANOTE ---
RE VANCO SCR IMPROVING. CONTINUE CURRENT DOSE, WILL ASSESS AFTER LEVEL TOMORROW ETELVINA
[2022-02-26] MEDS: Chlorhexidine Gluc Oral Rinse 15 ML MOUTHWASH BUCCAL (08:09)
[2022-02-26] MEDS: Metoprolol Tartrate 50 MG TABLET PO (08:09)
--- NOTE | 2022-02-26 08:30 | PC.NURSE ---
Addendum entered by Wero Stephens RN 02/26/22 14:41: pt successfully extubated at 1430 per MD verbal order. no stridor, pt talking but has weak cough Addendum entered by Wero Stephens RN 02/26/22 13:01: per md plan is to extubate pt. tube feeds and water boluses held. per ID pt placed on contact precautions. Original Note: Pt awake, following commands this AM. RT and md at bedside assessing pt and adjusting vent settings. Md informed of pt's HR per MD administer 50mg metoprolol, hold 12.5 dose and continue to monitor HR. pt CHG bathed this shift. new flexiseal placed d/t previous one being expelled.
--- NOTE | 2022-02-26 10:27 | MHC.CLN ---
F/U PT REMAINS INTUBATED AND SEDATED PT TOLERATING FORMULA NEPRO 1.8 AT MAX GOAL RATE 30ML/HR WITH 240ML FREE WATER FLUSHES Q 6 HRS TO PROVIDE 1296KCALS, 58G PROTEIN (1.01G/KG BASED ON IBW), 1483ML TOTAL WATER FROM FORMULA AND FLUSHES (26ML/KG BASED ON IBW) CAN INCREASE WATER FLUSHES IF NEEDED MONITOR TOLERANCE, RESIDUALS AND LYTES
[2022-02-26 11:51] LABS: Glucose, Whole Blood 169 mg/dL (60-115)
[2022-02-26] MEDS: levoFLOXacin/D5W 250 MG/50 ML PIGGYBACK 50 MG IV (12:49)
--- NOTE | 2022-02-26 13:04 | PM.PNNEP ---
Subjective Subjective Date of Service: 02/26/22 Interval history: seen and examined vented Physical Exam Vital Signs: Vital Signs: Last Vital Signs Temp 97.8 F 02/26/22 12:00 Pulse 75 02/26/22 13:00 Resp 16 02/26/22 13:00 BP 139/70 02/26/22 13:00 Pulse Ox 98 02/26/22 13:00 O2 Del Method 02/26/22 13:00 O2 Flow Rate 50 02/26/22 09:00 FiO2 50 02/26/22 13:00 BMI result Body Mass Index 37.9 Const: General: other (vented) HEENT: Head: Yes normocephalic and Yes atraumatic Neck: Neck: Yes supple Resp: Auscultation: diminished lung sounds Cardio: Heart sounds: S1 normal heart sound present and S2 normal heart sound present GI: Palpation (GI): Soft to palpation and no guarding Extrem: General: Yes edema Objective Data Labs CBC & Chem 7: 02/26/22 04:30 02/26/22 04:30 Labs: Laboratory Results - last 24 hr 02/22/22 02/25/22 02/26/22 11:16 17:55 00:14 WBC RBC Hgb Hct MCV MCH MCHC RDW Plt Count MPV Immature Gran % (Auto) Neut % (Auto) Lymph % (Auto) [place] % (Auto) Eos % (Auto) Baso % (Auto) Lymph # (Auto) [place] # (Auto) Eos # (Auto) Baso # (Auto) Abs Immat Gran (auto) Absolute Neuts (auto) Absolute Nucleated RBC Nucleated RBC % (auto) Neutrophils % (Manual) Band Neutrophils % Lymphocytes % (Manual) Monocytes % (Manual) Metamyelocytes % Abs Neuts (Manual) Lymphocytes # (Manual) Monocytes # (Manual) Metamyelocytes # Smudge Cells Platelet Estimate Large Platelets Plt Morphology Comment RBC Morphology Polychromasia Basophilic Stippling Macrocytosis Ovalocytes VBG pH VBG pCO2 VBG pO2 VBG HCO3 VBG O2 Saturation VBG Base Excess Sodium Potassium Chloride Carbon Dioxide Anion Gap BUN Creatinine Estim Creat Clear Calc Estimated GFR POC Glucose 147 H 146 H Random Glucose Calcium Total Bilirubin AST ALT Alkaline Phosphatase Total Protein Albumin KHUSHI Titer TNP KHUSHI Titer 2 TNP KHUSHI Titer 3 TNP KHUSHI Pattern TNP KHUSHI Pattern 2 TNP KHUSHI Pattern 3 TNP 1002/26/22 02/26/22 04:30 04:30 04:31 WBC 13.8 H RBC 3.51 L Hgb 10.0 L Hct 32.4 L MCV 92.3 MCH 28.5 MCHC 30.9 L RDW 15.9 Plt Count 398 MPV 10.7 Immature Gran % (Auto) Cancelled Neut % (Auto) Cancelled Lymph % (Auto) Cancelled [place] % (Auto) Cancelled Eos % (Auto) Cancelled Baso % (Auto) Cancelled Lymph # (Auto) Cancelled [place] # (Auto) Cancelled Eos # (Auto) Cancelled Baso # (Auto) Cancelled Abs Immat Gran (auto) Cancelled Absolute Neuts (auto) Cancelled Absolute Nucleated RBC 0.040 H Nucleated RBC % (auto) 0.3 H Neutrophils % (Manual) 78 H Band Neutrophils % 4 Lymphocytes % (Manual) 9 L Monocytes % (Manual) 8 Metamyelocytes % 1 Abs Neuts (Manual) 11.3 H Lymphocytes # (Manual) 1.2 Monocytes # (Manual) 1.1 Metamyelocytes # 0.1 Smudge Cells PRESENT Platelet Estimate NORMAL Large Platelets PRESENT Plt Morphology Comment NORMAL RBC Morphology NOTED Polychromasia 1+ (0-2) Basophilic Stippling 1+ (0-2) Macrocytosis 1+ (5-14) Ovalocytes 1+ (5-14) VBG pH 7.47 H VBG pCO2 44 VBG pO2 41 VBG HCO3 32 H VBG O2 Saturation 61.0 VBG Base Excess 8.2 Sodium 146 H Potassium 3.8 Chloride 100 Carbon Dioxide 31 H Anion Gap 19 BUN 91 H Creatinine 1.96 H Estim Creat Clear Calc 32.8 Estimated GFR 25 POC Glucose Random Glucose 172 H Calcium 8.7 Total Bilirubin 0.4 AST 85 H ALT 69 H Alkaline Phosphatase 121 H D Total Protein 5.6 L Albumin 2.9 L KHUSHI Titer KHUSHI Titer 2 KHUSHI Titer 3 KHUSHI Pattern KHUSHI Pattern 2 KHUSHI Pattern 3 02/26/22 02/26/22 05:30 11:47 WBC RBC Hgb Hct MCV MCH MCHC RDW Plt Count MPV Immature Gran % (Auto) Neut % (Auto) Lymph % (Auto) [place] % (Auto) Eos % (Auto) Baso % (Auto) Lymph # (Auto) [place] # (Auto) Eos # (Auto) Baso # (Auto) Abs Immat Gran (auto) Absolute Neuts (auto) Absolute Nucleated RBC Nucleated RBC % (auto) Neutrophils % (Manual) Band Neutrophils % Lymphocytes % (Manual) Monocytes % (Manual) Metamyelocytes % Abs Neuts (Manual) Lymphocytes # (Manual) Monocytes # (Manual) Metamyelocytes # Smudge Cells Platelet Estimate Large Platelets Plt Morphology Comment RBC Morphology Polychromasia Basophilic Stippling Macrocytosis Ovalocytes VBG pH VBG pCO2 VBG pO2 VBG HCO3 VBG O2 Saturation VBG Base Excess Sodium Potassium Chloride Carbon Dioxide Anion Gap BUN Creatinine Estim Creat Clear Calc Estimated GFR POC Glucose 153 H 169 H Random Glucose Calcium Total Bilirubin AST ALT Alkaline Phosphatase Total Protein Albumin KHUSHI Titer KHUSHI Titer 2 KHUSHI Titer 3 KHUSHI Pattern KHUSHI Pattern 2 KHUSHI Pattern 3 Microbiology Microbiology Results: Microbiology 02/25/22 09:27 Sputum - Suctioned Gram Stain - Final 02/25/22 09:27 Sputum - Suctioned Sputum Culture - Preliminary No growth to date. 02/23/22 09:15 Sputum - Suctioned Gram Stain - Final 02/23/22 09:15 Sputum - Suctioned Sputum Culture - Final Methicillin Res Staph Aureus 02/24/22 22:38 Blood - Venous Blood Culture - Preliminary No growth after 24 hours. 02/24/22 22:38 Blood - Venous Blood Culture - Preliminary No growth after 24 hours. 02/18/22 15:05 Blood - Venous Blood Culture - Final No growth after 5 days. 02/18/22 15:05 Blood - Venous Blood Culture - Final No growth after 5 days. 02/19/22 09:47 Sputum - Suctioned Gram Stain - Final 02/19/22 09:47 Sputum - Suctioned Sputum Culture - Final 02/18/22 Unknown Urine clean catch - Urine smith top Urine Culture - Final Escherichia coli Procedures Date of Service Date of Service: 02/26/22 Assessment & Plan Assessment and plan (1) KENJI (acute kidney injury): Status: Acute (2) (HFpEF) heart failure with preserved ejection fraction: Status: Acute (3) CKD (chronic kidney disease) stage 3, GFR 30-59 ml/min: Status: Acute Plan KENJI due to compromised kidney perfusion and tubular stress known CKD baseline Scr ~ 1.3 mg/dl followed by Dr Hi h/o left renal atrophy h/o diastolic dysfunction REC diurese if hemodynamcs allow follow random vancomycin level follow kidney function and electrolytes Time Spent With Patient Time: Total time spent is greater than 50% in coordination of care (as documented) at patient's floor/unit and/or counseling patient: Progress Note: Quality Stroke Does the patient have a stroke diagnosis?: No
[2022-02-26] MEDS: vancomycin HCL 500 MG in 0.9 % Sodium Chloride 100 ML 110 MG IV (14:13)
--- NOTE | 2022-02-26 16:18 | PM.CCPN ---
Subjective Subjective Date of Service: 02/26/22 Interval History: 76-year-old obese female oxygen-dependent COPD from smoking by my bedside echo apparently has had of unknown age inferior basal infarct overall rate diffuse relative hypokinesis and ejection fraction probably mid 40s so she has got reduced systolic as well as diastolic reserve came in with acute hypoxemic respiratory failure with left lower lobe consolidation and sputum cultures growing out MRSA but she is on vancomycin and Levaquin which is for the E coli urinary tract infection Course was complicated by a new acute CHF with at least a 7 L volume overload which we diuresed on a Lasix drip and acute on chronic renal failure from stage II to stage IV now gradually improving and just extubated today generating the best tidal volumes that she has ever done she only has respiratory rate in the teens minute ventilations which are very mid trivial at 7 to 7.5 L per minute. And for more than 24-30 hours no no fever She has chronic atrial fibrillation and is on metoprolol for rate control and takes aspirin and Plavix daily but no other oral anticoagulation Also background of hypertensive cardiovascular disease and replaced hypothyroidism Critical Care Time (minutes): 45 Physical Exam Vital Signs: Vital Signs: Last Vital Signs Temp 97.8 F 02/26/22 12:00 Pulse 70 02/26/22 15:00 Resp 24 H 02/26/22 16:09 BP 142/84 H 02/26/22 15:00 Pulse Ox 94 02/26/22 15:00 O2 Del Method 02/26/22 15:00 O2 Flow Rate 55 02/26/22 15:00 FiO2 35 02/26/22 15:00 BMI result Body Mass Index 37.9 Did well on a prolonged pressure support weaning trial with much improved tidal volumes minimal respiratory rate the quite often under 12 without respiratory effort no tachycardia no tachypnea and ultimately resulting in successful extubation CVP remained at 7 with even intake and output ratios No neck vein distension and carotid upstrokes are adequate controlled atrial fibrillation Chest because equally no adventitious sounds Abdomen soft no again a megaly Objective Data Labs CBC & Chem 7: 02/26/22 04:30 02/26/22 04:30 Labs: Laboratory Results - last 24 hr 02/25/22 02/26/22 02/26/22 17:55 00:14 04:30 WBC RBC Hgb Hct MCV MCH MCHC RDW Plt Count MPV Immature Gran % (Auto) Neut % (Auto) Lymph % (Auto) [place] % (Auto) Eos % (Auto) Baso % (Auto) Lymph # (Auto) [place] # (Auto) Eos # (Auto) Baso # (Auto) Abs Immat Gran (auto) Absolute Neuts (auto) Absolute Nucleated RBC Nucleated RBC % (auto) Neutrophils % (Manual) Band Neutrophils % Lymphocytes % (Manual) Monocytes % (Manual) Metamyelocytes % Abs Neuts (Manual) Lymphocytes # (Manual) Monocytes # (Manual) Metamyelocytes # Smudge Cells Platelet Estimate Large Platelets Plt Morphology Comment RBC Morphology Polychromasia Basophilic Stippling Macrocytosis Ovalocytes VBG pH VBG pCO2 VBG pO2 VBG HCO3 VBG O2 Saturation VBG Base Excess Sodium 146 H Potassium 3.8 Chloride 100 Carbon Dioxide 31 H Anion Gap 19 BUN 91 H Creatinine 1.96 H Estim Creat Clear Calc 32.8 Estimated GFR 25 POC Glucose 147 H 146 H Random Glucose 172 H Calcium 8.7 Total Bilirubin 0.4 AST 85 H ALT 69 H Alkaline Phosphatase 121 H D Total Protein 5.6 L Albumin 2.9 L 02/26/22 02/26/22 02/26/22 04:30 04:31 05:30 WBC 13.8 H RBC 3.51 L Hgb 10.0 L Hct 32.4 L MCV 92.3 MCH 28.5 MCHC 30.9 L RDW 15.9 Plt Count 398 MPV 10.7 Immature Gran % (Auto) Cancelled Neut % (Auto) Cancelled Lymph % (Auto) Cancelled [place] % (Auto) Cancelled Eos % (Auto) Cancelled Baso % (Auto) Cancelled Lymph # (Auto) Cancelled [place] # (Auto) Cancelled Eos # (Auto) Cancelled Baso # (Auto) Cancelled Abs Immat Gran (auto) Cancelled Absolute Neuts (auto) Cancelled Absolute Nucleated RBC 0.040 H Nucleated RBC % (auto) 0.3 H Neutrophils % (Manual) 78 H Band Neutrophils % 4 Lymphocytes % (Manual) 9 L Monocytes % (Manual) 8 Metamyelocytes % 1 Abs Neuts (Manual) 11.3 H Lymphocytes # (Manual) 1.2 Monocytes # (Manual) 1.1 Metamyelocytes # 0.1 Smudge Cells PRESENT Platelet Estimate NORMAL Large Platelets PRESENT Plt Morphology Comment NORMAL RBC Morphology NOTED Polychromasia 1+ (0-2) Basophilic Stippling 1+ (0-2) Macrocytosis 1+ (5-14) Ovalocytes 1+ (5-14) VBG pH 7.47 H VBG pCO2 44 VBG pO2 41 VBG HCO3 32 H VBG O2 Saturation 61.0 VBG Base Excess 8.2 Sodium Potassium Chloride Carbon Dioxide Anion Gap BUN Creatinine Estim Creat Clear Calc Estimated GFR POC Glucose 153 H Random Glucose Calcium Total Bilirubin AST ALT Alkaline Phosphatase Total Protein Albumin 02/26/22 11:47 WBC RBC Hgb Hct MCV MCH MCHC RDW Plt Count MPV Immature Gran % (Auto) Neut % (Auto) Lymph % (Auto) [place] % (Auto) Eos % (Auto) Baso % (Auto) Lymph # (Auto) [place] # (Auto) Eos # (Auto) Baso # (Auto) Abs Immat Gran (auto) Absolute Neuts (auto) Absolute Nucleated RBC Nucleated RBC % (auto) Neutrophils % (Manual) Band Neutrophils % Lymphocytes % (Manual) Monocytes % (Manual) Metamyelocytes % Abs Neuts (Manual) Lymphocytes # (Manual) Monocytes # (Manual) Metamyelocytes # Smudge Cells Platelet Estimate Large Platelets Plt Morphology Comment RBC Morphology Polychromasia Basophilic Stippling Macrocytosis Ovalocytes VBG pH VBG pCO2 VBG pO2 VBG HCO3 VBG O2 Saturation VBG Base Excess Sodium Potassium Chloride Carbon Dioxide Anion Gap BUN Creatinine Estim Creat Clear Calc Estimated GFR POC Glucose 169 H Random Glucose Calcium Total Bilirubin AST ALT Alkaline Phosphatase Total Protein Albumin Microbiology Microbiology Results: Microbiology 02/25/22 09:27 Sputum - Suctioned Gram Stain - Final 02/25/22 09:27 Sputum - Suctioned Sputum Culture - Preliminary No growth to date. 02/23/22 09:15 Sputum - Suctioned Gram Stain - Final 02/23/22 09:15 Sputum - Suctioned Sputum Culture - Final Methicillin Res Staph Aureus 02/24/22 22:38 Blood - Venous Blood Culture - Preliminary No growth after 24 hours. 02/24/22 22:38 Blood - Venous Blood Culture - Preliminary No growth after 24 hours. 02/18/22 15:05 Blood - Venous Blood Culture - Final No growth after 5 days. 02/18/22 15:05 Blood - Venous Blood Culture - Final No growth after 5 days. 02/19/22 09:47 Sputum - Suctioned Gram Stain - Final 02/19/22 09:47 Sputum - Suctioned Sputum Culture - Final 02/18/22 Unknown Urine clean catch - Urine smith top Urine Culture - Final Escherichia coli Progress Note: A&P Assessment and plan (1) CKD (chronic kidney disease) stage 3, GFR 30-59 ml/min: Status: Acute (2) (HFpEF) heart failure with preserved ejection fraction: Status: Acute (3) Atrial fibrillation with rapid ventricular response: Status: Acute (4) Congestive heart failure with LV diastolic dysfunction, NYHA class 1: Status: Acute (5) Congestive heart failure with left ventricular systolic dysfunction (LVSD): Status: Acute (6) Urinary tract infection: Status: Acute (7) Metabolic encephalopathy: Status: Acute (8) Stage 3a chronic kidney disease (CKD): Status: Acute (9) KENJI (acute kidney injury): Status: Acute (10) Congestive heart failure: Status: Acute (11) Pneumonia: Status: Acute (12) Respiratory failure: Status: Acute Plan So plan at this point is bedside swallow and is successful introduce clear liquids and continue vancomycin for MRSA pneumonia and Levaquin for an E coli urinary tract infection and probably arrange to transfer to the floor Quality Stroke Does the patient have a stroke diagnosis?: No VTE Prior VTE?: No VTE Risk Level:: Medical - moderate - high VTE Device Contraindication: N/A - Device Ordered VTE Drug Contraindication: N/A - Med Ordered
[2022-02-26 17:56] LABS: Glucose, Whole Blood 121 mg/dL (60-115)
[2022-02-26] MEDS: Levothyroxine Sodium 125 MCG TABLET PO (17:58)
--- NOTE | 2022-02-26 21:34 | PC.NURSE ---
pt on high flow o2.no resp difficulty. head of bed up 30-40 degrees. spoke to pt's daughter Fariba and told of of plan to transfer pt to room 471. pt aware of plan and was transferred at this time. report given to Karen LI.
[2022-02-27] VITALS (11 sets, daily range): BP systolic 115–145; BP diastolic 53–82; PULSE 53–81; RESP 17–20; TEMP 36.1–36.7; O2SAT 90–98; BMI 38.7
[2022-02-27 00:36] LABS: Glucose, Whole Blood 126 mg/dL (60-115)
[2022-02-27 06:07] LABS: Glucose, Whole Blood 122 mg/dL (60-115)
[2022-02-27] MEDS: Heparin Sodium,Porcine 5,000 UNIT/ML VIAL 5000 UNIT SUBCUT ×3 (06:07→23:39)
[2022-02-27] MEDS: Levothyroxine Sodium 125 MCG TABLET PO ×2 (06:09→08:21)
[2022-02-27] MEDS: Clopidogrel Bisulfate 75 MG TABLET PO (08:18)
[2022-02-27] MEDS: Aspirin Enteric Coated 81 MG TABLET.DR PO (08:18)
[2022-02-27] MEDS: Gabapentin 300 MG CAPSULE PO (08:18)
[2022-02-27] MEDS: Metoprolol Tartrate 25 MG TABLET PO (08:18)
[2022-02-27] MEDS: Losartan Potassium 50 MG TABLET PO (08:18)
[2022-02-27] MEDS: Metoprolol Tartrate 50 MG TABLET PO (08:22)
[2022-02-27 09:20] LABS: Anion Gap 18 (12-20); Blood Urea Nitrogen 65 mg/dL (9-16); Calcium 8.7 mg/dL (8.4-10.2); Carbon Dioxide 30 mmol/L (22-29); Chloride 102 mmol/L (96-108); Creatinine Clr Calc Pharmacy 43.9; Estimated Glomerular Filt Rate 34; Glucose Random 132 mg/dL (60-115); Potassium 3.8 mmol/L (3.3-5.1); Sodium 146 mmol/L (135-145)
[2022-02-27 11:21] LABS: Glucose, Whole Blood 166 mg/dL (60-115)
[2022-02-27] MEDS: Acetaminophen 325 MG TABLET 650 MG PO ×2 (12:22→23:43)
[2022-02-27] MEDS: Insulin Lispro 100 UNIT/ML 3 ML VIAL SUBCUT (12:22)
[2022-02-27 12:29] LABS: Vancomycin Random 17.2 mcg/mL (15-20)
--- NOTE | 2022-02-27 12:47 | HO.PM.IMPN ---
Subjective Subjective Date of Service: 02/27/22 Interval History: cc: sob interval history:weakness Cardiovascular Cardiovascular: Reports no additional cardiovascular complaints Gastrointestinal Gastrointestinal: Reports no additional gastrointestinal complaints Physical Exam Vital Signs: Vital Signs: Last Vital Signs Temp 97.6 F 02/27/22 11:13 Pulse 57 02/27/22 11:13 Resp 18 02/27/22 11:13 BP 131/64 02/27/22 11:13 Pulse Ox 95 02/27/22 11:13 O2 Del Method 02/27/22 11:13 O2 Flow Rate 30 02/27/22 11:13 FiO2 30 02/27/22 11:13 BMI result Body Mass Index 38.7 General: AO X 3, no acute distress, ill appearing Resp: CTA bilateral, no accessory muscles used CVS: S1,S2,RRR GI: soft, non tender, non distended Neuro: grossly weak, alert Psych: appropriate affect, appropriate insight Objective Data Active Medications Acetaminophen (Acetaminophen 325 Mg Tablet) 650 mg PO Q6H PRN PRN Reason: mild pain Last Admin: 02/27/22 12:22 Dose: 650 mg Documented By: HALLIE Albuterol Sulfate (Albuterol Sulfate 90 Mcg 8 Gm Inhaler) 2 puff INHALE Q6H PRN PRN Reason: Respiratory Distress Aspirin (Aspirin Enteric Coated 81 Mg Tablet.) 81 mg PO DAILY [facility] Stop: 03/05/22 09:01 Last Admin: 02/27/22 08:18 Dose: 81 mg Documented By: HALLIE Atorvastatin Calcium (Atorvastatin Calcium 40 Mg Tablet) 40 mg PO BEDTIME [facility] Clopidogrel Bisulfate (Clopidogrel Bisulfate 75 Mg Tablet) 75 mg PO DAILY [facility] Last Admin: 02/27/22 08:18 Dose: 75 mg Documented By: HALLIE Heparin Sodium (Porcine) (Heparin Sodium,Porcine 5,000 Unit/Ml Vial) 5,000 unit SUBCUT Q8H [facility] Last Admin: 02/27/22 06:07 Dose: 5,000 unit Documented By: NIESHA Levofloxacin (Levaquin) 250 mg in 50 mls @ 50 mls/hr IV Q24H [facility] Last Infusion: 02/26/22 14:12 Dose: 50 mls/hr Documented By: YVETTE Vancomycin HCl 500 mg/ Sodium (Chloride) 110 mls @ 110 mls/hr IV Q24H [facility] Last Infusion: 02/26/22 15:24 Dose: 0 mls/hr Documented By: YVETTE Insulin Human Lispro (Insulin Lispro 100 Unit/Ml 3 Ml Vial) 0 unit SUBCUT Q6H [facility]; Protocol Last Admin: 02/27/22 12:22 Dose: 2 unit Documented By: HALLIE Levothyroxine Sodium (Levothyroxine Sodium 125 Mcg Tablet) 125 mcg PO DAILY@0600 [facility] Last Admin: 02/27/22 06:09 Dose: 125 mcg Documented By: NIESHA Levothyroxine Sodium (Levothyroxine Sodium 125 Mcg Tablet) 125 mcg PO DAILY [facility] Last Admin: 02/27/22 08:21 Dose: 125 mcg Documented By: HALLIE Losartan Potassium (Losartan Potassium 50 Mg Tablet) 50 mg PO DAILY [facility]; Protocol Last Admin: 02/27/22 08:18 Dose: 50 mg Documented By: HALLIE Metoprolol Tartrate (Metoprolol Tartrate 50 Mg Tablet) 50 mg PO BID [facility]; Protocol Last Admin: 02/27/22 08:22 Dose: 50 mg Documented By: HALLIE Metoprolol Tartrate (Metoprolol Tartrate 25 Mg Tablet) 25 mg PO TID [facility]; Protocol Last Admin: 02/27/22 08:18 Dose: 25 mg Documented By: HALLIE Omeprazole (Omeprazole 20 Mg/10 Ml Susp.Recon) 40 mg G-TUBE DAILY@0630 [facility] Last Admin: 02/27/22 06:09 Dose: 40 mg Documented By: NIESHA Pharmacy Consult (Consult Rx Vancomycin Dosing) 1 each MISCELLANE DAILY PRN PRN Reason: Consult order Pharmacy Consult (Consult Rx Vancomycin Dosing) 1 each MISCELLANE DAILY PRN PRN Reason: Consult order Labs CBC & Chem 7: 02/26/22 04:30 02/27/22 08:58 Labs: Laboratory Results - last 24 hr 02/26/22 02/27/22 02/27/22 17:52 00:27 06:02 Anion Gap Estim Creat Clear Calc Estimated GFR POC Glucose 121 H 126 H 122 H Random Glucose Calcium Random Vancomycin 02/27/22 02/27/22 02/27/22 08:58 11:17 11:50 Anion Gap 18 Estim Creat Clear Calc 43.9 Estimated GFR 34 POC Glucose 166 H Random Glucose 132 H Calcium 8.7 Random Vancomycin 17.2 Microbiology Microbiology Results: Microbiology 02/25/22 09:27 Gram Stain - Final Sputum - Suctioned Sputum Culture - Final No growth. 02/24/22 22:38 Blood Culture - Preliminary Blood - Venous No growth after 48 hours. 02/24/22 22:38 Blood Culture - Preliminary Blood - Venous No growth after 48 hours. Assessment and Plan (1) (HFpEF) heart failure with preserved ejection fraction: Status: Acute Plan 76F with PMH chronic hypoxic respiratory failure on 3L home o2 due to copd, obesity, pafib s/p watchman, hfpef, hypothryoid, ckd III, dementia, htn, gerd, presented to ED 02/18/22 with sob, required intubation and admission to ICU. patient was treated for community acquired pneumonia and CHF, kenji on ckd III, was eventually extubated, downgraded to medical floor 02/26/22 on high flow. 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
[2022-02-27] MEDS: levoFLOXacin/D5W 250 MG/50 ML PIGGYBACK 50 MG IV (13:07)
--- NOTE | 2022-02-27 13:57 | PM.PNNEP ---
Subjective Subjective Date of Service: 02/27/22 Interval history: seen and examined transferred to floor Physical Exam Vital Signs: Vital Signs: Last Vital Signs Temp 97.6 F 02/27/22 11:13 Pulse 57 02/27/22 11:13 Resp 18 02/27/22 11:13 BP 131/64 02/27/22 11:13 Pulse Ox 95 02/27/22 11:13 O2 Del Method 02/27/22 11:13 O2 Flow Rate 30 02/27/22 11:13 FiO2 30 02/27/22 11:13 BMI result Body Mass Index 38.7 Const: General: no acute distress and other HEENT: Head: Yes normocephalic and Yes atraumatic Neck: Neck: Yes supple Resp: Auscultation: diminished lung sounds Cardio: Heart sounds: S1 normal heart sound present and S2 normal heart sound present GI: Palpation (GI): Soft to palpation and no guarding Extrem: General: Yes edema Objective Data Labs CBC & Chem 7: 02/26/22 04:30 02/27/22 08:58 Labs: Laboratory Results - last 24 hr 02/26/22 02/27/22 02/27/22 17:52 00:27 06:02 Sodium Potassium Chloride Carbon Dioxide Anion Gap BUN Creatinine Estim Creat Clear Calc Estimated GFR POC Glucose 121 H 126 H 122 H Random Glucose Calcium Random Vancomycin 02/27/22 02/27/22 02/27/22 08:58 11:17 11:50 Sodium 146 H Potassium 3.8 Chloride 102 Carbon Dioxide 30 H Anion Gap 18 BUN 65 H Creatinine 1.50 H Estim Creat Clear Calc 43.9 Estimated GFR 34 POC Glucose 166 H Random Glucose 132 H Calcium 8.7 Random Vancomycin 17.2 Microbiology Microbiology Results: Microbiology 02/25/22 09:27 Sputum - Suctioned Gram Stain - Final 02/25/22 09:27 Sputum - Suctioned Sputum Culture - Final No growth. 02/24/22 22:38 Blood - Venous Blood Culture - Preliminary No growth after 48 hours. 02/24/22 22:38 Blood - Venous Blood Culture - Preliminary No growth after 48 hours. 02/23/22 09:15 Sputum - Suctioned Gram Stain - Final 02/23/22 09:15 Sputum - Suctioned Sputum Culture - Final Methicillin Res Staph Aureus 02/18/22 15:05 Blood - Venous Blood Culture - Final No growth after 5 days. 02/18/22 15:05 Blood - Venous Blood Culture - Final No growth after 5 days. 02/19/22 09:47 Sputum - Suctioned Gram Stain - Final 02/19/22 09:47 Sputum - Suctioned Sputum Culture - Final 02/18/22 Unknown Urine clean catch - Urine smith top Urine Culture - Final Escherichia coli Procedures Date of Service Date of Service: 02/27/22 Assessment & Plan Assessment and plan (1) KENJI (acute kidney injury): Status: Acute (2) (HFpEF) heart failure with preserved ejection fraction: Status: Acute (3) CKD (chronic kidney disease) stage 3, GFR 30-59 ml/min: Status: Acute Plan Scr better KENJI due to compromised kidney perfusion and tubular stress known CKD baseline Scr ~ 1.3 mg/dl followed by Dr Hi h/o left renal atrophy h/o diastolic dysfunction REC on oral furosemide follow kidney function and electrolytes Time Spent With Patient Time: Total time spent is greater than 50% in coordination of care (as documented) at patient's floor/unit and/or counseling patient: Progress Note: Quality Stroke Does the patient have a stroke diagnosis?: No
[2022-02-27] MEDS: Doxycycline Hyclate 100 MG in 0.9 % Sodium Chloride 250 ML 166.67 MG IV (14:22)
[2022-02-27 17:35] LABS: Glucose, Whole Blood 104 mg/dL (60-115)
[2022-02-27 23:23] LABS: Glucose, Whole Blood 92 mg/dL (60-115)
[2022-02-27] MEDS: Doxycycline Hyclate 100 MG in 0.9 % Sodium Chloride 250 ML 166 MG IV (23:40)
[2022-02-27] MEDS: Atorvastatin Calcium 40 MG TABLET PO (23:40)
[2022-02-28 03:11] VITALS: BP 121/60; PULSE 64; RESP 17; TEMP 36.7; O2SAT 98
[2022-02-28 06:02] LABS: Glucose, Whole Blood 102 mg/dL (60-115)
[2022-02-28] MEDS: Heparin Sodium,Porcine 5,000 UNIT/ML VIAL 5000 UNIT SUBCUT ×3 (06:04→21:18)
[2022-02-28] MEDS: Levothyroxine Sodium 125 MCG TABLET PO ×2 (06:04→09:20)
[2022-02-28 07:48] LABS: Hematocrit 36.5 % (37.0-47.0); Hemoglobin 11.2 g/dl (12.0-16.0); Mean Corpuscular HGB Conc 30.7 g/dl (31.0-35.0); Mean Corpuscular Hemoglobin 28.6 pg (27.0-33.0); Mean Corpuscular Volume 93.4 fL (80.0-98.0); Mean Platelet Volume 10.7 fL (9.4-12.3); Platelet Count 457 X10*3/uL (160-400); Red Blood Count 3.91 X10*6/uL (4.20-5.50); Red Cell Distribution Width 15.9 % (11.0-16.0); White Blood Count 10.1 X10*3/uL (4.8-10.8)
[2022-02-28 08:00] VITALS: BP 134/87; PULSE 69; RESP 18; TEMP 36.4; O2SAT 98
[2022-02-28 08:14] LABS: Anion Gap 18 (12-20); Blood Urea Nitrogen 52 mg/dL (9-16); Calcium 8.6 mg/dL (8.4-10.2); Carbon Dioxide 29 mmol/L (22-29); Chloride 102 mmol/L (96-108); Creatinine Clr Calc Pharmacy 52.4; Estimated Glomerular Filt Rate 41; Glucose Fasting 109 mg/dL (60-99); Magnesium 2.1 mg/dL (1.6-2.6); Sodium 145 mmol/L (135-145)
[2022-02-28] MEDS: Metoprolol Tartrate 50 MG TABLET PO (09:19)
[2022-02-28] MEDS: Furosemide 40 MG TABLET PO (09:19)
[2022-02-28] MEDS: Losartan Potassium 50 MG TABLET PO (09:19)
[2022-02-28] MEDS: Clopidogrel Bisulfate 75 MG TABLET PO (09:19)
[2022-02-28] MEDS: Aspirin Enteric Coated 81 MG TABLET.DR PO (09:20)
[2022-02-28] MEDS: Metoprolol Tartrate 25 MG TABLET PO ×2 (09:20→14:37)
--- NOTE | 2022-02-28 10:24 | P.PNIM_ITS ---
Subjective Subjective Date of Service: 02/28/22 Interval History: cc: sob interval history:weakness Cardiovascular Cardiovascular: Reports no additional cardiovascular complaints Gastrointestinal Gastrointestinal: Reports no additional gastrointestinal complaints Physical Exam Vital Signs: Vital Signs: Last Vital Signs Temp 97.6 F 02/28/22 08:00 Pulse 69 02/28/22 08:00 Resp 18 02/28/22 08:00 BP 134/87 02/28/22 08:00 Pulse Ox 98 02/28/22 08:00 O2 Del Method 02/28/22 08:00 O2 Flow Rate 5 02/28/22 08:00 FiO2 30 02/27/22 11:13 BMI result Body Mass Index 38.7 General: AO X 3, no acute distress, ill appearing Resp: CTA bilateral, no accessory muscles used CVS: S1,S2,RRR GI: soft, non tender, non distended Neuro: grossly weak, alert Psych: appropriate affect, appropriate insight Objective Data Active Medications Acetaminophen (Acetaminophen 325 Mg Tablet) 650 mg PO Q6H PRN PRN Reason: mild pain Last Admin: 02/27/22 23:43 Dose: 650 mg Documented By: ORLANDO Albuterol Sulfate (Albuterol Sulfate 90 Mcg 8 Gm Inhaler) 2 puff INHALE Q6H PRN PRN Reason: Respiratory Distress Aspirin (Aspirin Enteric Coated 81 Mg Tablet.Dr) 81 mg PO DAILY [facility] Stop: 03/05/22 09:01 Last Admin: 02/28/22 09:20 Dose: 81 mg Documented By: BIJU Atorvastatin Calcium (Atorvastatin Calcium 40 Mg Tablet) 40 mg PO BEDTIME [facility] Last Admin: 02/27/22 23:40 Dose: 40 mg Documented By: ORLANDO Clopidogrel Bisulfate (Clopidogrel Bisulfate 75 Mg Tablet) 75 mg PO DAILY [facility] Last Admin: 02/28/22 09:19 Dose: 75 mg Documented By: BIJU Furosemide (Furosemide 40 Mg Tablet) 40 mg PO DAILY [facility]; Protocol Last Admin: 02/28/22 09:19 Dose: 40 mg Documented By: BIJU Heparin Sodium (Porcine) (Heparin Sodium,Porcine 5,000 Unit/Ml Vial) 5,000 unit SUBCUT Q8H [facility] Last Admin: 02/28/22 06:04 Dose: 5,000 unit Documented By: ORLANDO Levofloxacin (Levaquin) 250 mg in 50 mls @ 50 mls/hr IV Q24H [facility] Last Infusion: 02/27/22 14:40 Dose: 0 mls/hr Documented By: HALLIE Doxycycline Hyclate 100 mg/ (Sodium Chloride) 250 mls @ 166.67 mls/hr IV Q12H [facility] Last Infusion: 02/28/22 05:18 Dose: 0 mls/hr Documented By: ORLANDO Insulin Human Lispro (Insulin Lispro 100 Unit/Ml 3 Ml Vial) 0 unit SUBCUT Q6H [facility]; Protocol Last Admin: 02/28/22 09:26 Dose: Not Given Documented By: BIJU Non-Admin Reason: No Insulin Coverage Levothyroxine Sodium (Levothyroxine Sodium 125 Mcg Tablet) 125 mcg PO DAILY@0600 [facility] Last Admin: 02/28/22 06:04 Dose: 125 mcg Documented By: ORLANDO Levothyroxine Sodium (Levothyroxine Sodium 125 Mcg Tablet) 125 mcg PO DAILY [facility] Last Admin: 02/28/22 09:20 Dose: 125 mcg Documented By: BIJU Losartan Potassium (Losartan Potassium 50 Mg Tablet) 50 mg PO DAILY [facility]; Protocol Last Admin: 02/28/22 09:19 Dose: 50 mg Documented By: BIJU Metoprolol Tartrate (Metoprolol Tartrate 50 Mg Tablet) 50 mg PO BID [facility]; Protocol Last Admin: 02/28/22 09:19 Dose: 50 mg Documented By: BIJU Metoprolol Tartrate (Metoprolol Tartrate 25 Mg Tablet) 25 mg PO TID [facility]; Protocol Last Admin: 02/28/22 09:20 Dose: 25 mg Documented By: BIJU Omeprazole (Omeprazole 20 Mg/10 Ml Susp.Recon) 40 mg G-TUBE DAILY@0630 [facility] Last Admin: 02/28/22 06:04 Dose: 40 mg Documented By: ORLANDO Pharmacy Consult (Consult Rx Vancomycin Dosing) 1 each MISCELLANE DAILY PRN PRN Reason: Consult order Pharmacy Consult (Consult Rx Vancomycin Dosing) 1 each MISCELLANE DAILY PRN PRN Reason: Consult order Labs CBC & Chem 7: 02/28/22 07:02 02/28/22 07:02 Labs: Laboratory Results - last 24 hr 02/27/22 02/27/22 02/27/22 11:17 11:50 17:31 MCV MCH MCHC RDW Plt Count MPV Absolute Nucleated RBC Nucleated RBC % (auto) Anion Gap Estim Creat Clear Calc Estimated GFR POC Glucose 166 H 104 Random Glucose Fasting Glucose Calcium Magnesium Random Vancomycin 17.2 02/27/22 02/28/22 02/28/22 23:20 05:58 07:02 MCV 93.4 MCH 28.6 MCHC 30.7 L RDW 15.9 Plt Count 457 H MPV 10.7 Absolute Nucleated RBC 0.000 Nucleated RBC % (auto) 0.0 Anion Gap Estim Creat Clear Calc Estimated GFR POC Glucose 92 102 Random Glucose Fasting Glucose Calcium Magnesium Random Vancomycin 02/28/22 07:02 MCV MCH MCHC RDW Plt Count MPV Absolute Nucleated RBC Nucleated RBC % (auto) Anion Gap 18 Estim Creat Clear Calc 52.4 Estimated GFR 41 POC Glucose Random Glucose TNP Fasting Glucose 109 H Calcium 8.6 Magnesium 2.1 Random Vancomycin Microbiology Microbiology Results: Microbiology 02/25/22 09:27 Gram Stain - Final Sputum - Suctioned Sputum Culture - Final No growth. Assessment and Plan (1) (HFpEF) heart failure with preserved ejection fraction: Status: Acute Plan 76F with PMH chronic hypoxic respiratory failure on 3L home o2 due to copd, obesity, pafib s/p watchman, hfpef, hypothryoid, ckd III, dementia, htn, gerd, presented to ED 02/18/22 with sob, required intubation and admission to ICU. patient was treated for community acquired pneumonia and CHF, kenji on ckd III, was eventually extubated, downgraded to medical floor 02/26/22 on high flow. 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
--- NOTE | 2022-02-28 10:39 | PM.PNNEP ---
Subjective Subjective Date of Service: 02/28/22 Interval history: seen and examined denies SOP/CP. N/V/V Physical Exam Vital Signs: Vital Signs: Last Vital Signs Temp 97.6 F 02/28/22 08:00 Pulse 69 02/28/22 08:00 Resp 18 02/28/22 08:00 BP 134/87 02/28/22 08:00 Pulse Ox 98 02/28/22 08:00 O2 Del Method 02/28/22 08:00 O2 Flow Rate 5 02/28/22 08:00 FiO2 30 02/27/22 11:13 BMI result Body Mass Index 38.7 Const: General: no acute distress and other HEENT: Head: Yes normocephalic and Yes atraumatic Neck: Neck: Yes supple Resp: Auscultation: diminished lung sounds Cardio: Heart sounds: S1 normal heart sound present and S2 normal heart sound present GI: Palpation (GI): Soft to palpation and no guarding Extrem: General: Yes edema Objective Data Labs CBC & Chem 7: 02/28/22 07:02 02/28/22 07:02 Labs: Laboratory Results - last 24 hr 02/27/22 02/27/22 02/27/22 11:17 11:50 17:31 WBC RBC Hgb Hct MCV MCH MCHC RDW Plt Count MPV Absolute Nucleated RBC Nucleated RBC % (auto) Sodium Potassium Chloride Carbon Dioxide Anion Gap BUN Creatinine Estim Creat Clear Calc Estimated GFR POC Glucose 166 H 104 Random Glucose Fasting Glucose Calcium Magnesium Random Vancomycin 17.2 02/27/22 02/28/22 02/28/22 23:20 05:58 07:02 WBC 10.1 RBC 3.91 L Hgb 11.2 L Hct 36.5 L MCV 93.4 MCH 28.6 MCHC 30.7 L RDW 15.9 Plt Count 457 H MPV 10.7 Absolute Nucleated RBC 0.000 Nucleated RBC % (auto) 0.0 Sodium Potassium Chloride Carbon Dioxide Anion Gap BUN Creatinine Estim Creat Clear Calc Estimated GFR POC Glucose 92 102 Random Glucose Fasting Glucose Calcium Magnesium Random Vancomycin 02/28/22 07:02 WBC RBC Hgb Hct MCV MCH MCHC RDW Plt Count MPV Absolute Nucleated RBC Nucleated RBC % (auto) Sodium 145 Potassium 4.0 Chloride 102 Carbon Dioxide 29 Anion Gap 18 BUN 52 H Creatinine 1.26 Estim Creat Clear Calc 52.4 Estimated GFR 41 POC Glucose Random Glucose TNP Fasting Glucose 109 H Calcium 8.6 Magnesium 2.1 Random Vancomycin Microbiology Microbiology Results: Microbiology 02/25/22 09:27 Sputum - Suctioned Gram Stain - Final 02/25/22 09:27 Sputum - Suctioned Sputum Culture - Final No growth. 02/24/22 22:38 Blood - Venous Blood Culture - Preliminary No growth after 48 hours. 02/24/22 22:38 Blood - Venous Blood Culture - Preliminary No growth after 48 hours. 02/23/22 09:15 Sputum - Suctioned Gram Stain - Final 02/23/22 09:15 Sputum - Suctioned Sputum Culture - Final Methicillin Res Staph Aureus 02/18/22 15:05 Blood - Venous Blood Culture - Final No growth after 5 days. 02/18/22 15:05 Blood - Venous Blood Culture - Final No growth after 5 days. 02/19/22 09:47 Sputum - Suctioned Gram Stain - Final 02/19/22 09:47 Sputum - Suctioned Sputum Culture - Final 02/18/22 Unknown Urine clean catch - Urine smith top Urine Culture - Final Escherichia coli Procedures Date of Service Date of Service: 02/28/22 Assessment & Plan Assessment and plan (1) KENJI (acute kidney injury): Status: Acute (2) (HFpEF) heart failure with preserved ejection fraction: Status: Acute (3) CKD (chronic kidney disease) stage 3, GFR 30-59 ml/min: Status: Acute Plan kidney function improving KENJI due to compromised kidney perfusion and tubular stress known CKD baseline Scr ~ 1.3 mg/dl followed by Dr Hi h/o left renal atrophy h/o diastolic dysfunction REC continue oral furosemide follow kidney function and electrolytes Time Spent With Patient Time: Total time spent is greater than 50% in coordination of care (as documented) at patient's floor/unit and/or counseling patient: Progress Note: Quality Stroke Does the patient have a stroke diagnosis?: No
[2022-02-28 11:18] VITALS: BP 131/86; PULSE 55; RESP 18; TEMP 36.4; O2SAT 98
[2022-02-28 11:30] LABS: Glucose, Whole Blood 171 mg/dL (60-115)
[2022-02-28] MEDS: Insulin Lispro 100 UNIT/ML 3 ML VIAL SUBCUT (13:01)
[2022-02-28] MEDS: Doxycycline Hyclate 100 MG in 0.9 % Sodium Chloride 250 ML 166.7 MG IV (13:03)
[2022-02-28] MEDS: Acetaminophen 325 MG TABLET 650 MG PO ×2 (13:15→21:17)
[2022-02-28] MEDS: levoFLOXacin/D5W 250 MG/50 ML PIGGYBACK 50 MG IV (14:37)
[2022-02-28 15:45] VITALS: BP 123/61; PULSE 53; RESP 15; TEMP 35.9; O2SAT 100
[2022-02-28 16:48] LABS: Glucose, Whole Blood 90 mg/dL (60-115)
[2022-02-28 19:52] VITALS: BP 130/64; PULSE 56; RESP 18; TEMP 36.8; O2SAT 97
[2022-02-28 20:44] LABS: Glucose, Whole Blood 96 mg/dL (60-115)
[2022-02-28] MEDS: Atorvastatin Calcium 40 MG TABLET PO (21:16)
[2022-02-28 23:23] VITALS: BP 125/60; PULSE 65; RESP 18; TEMP 36.2; O2SAT 97
[2022-03-01] VITALS (8 sets, daily range): BP systolic 108–128; BP diastolic 63–77; PULSE 57–102; RESP 14–19; TEMP 36–37; O2SAT 94–100; BMI 39.2
[2022-03-01 01:19] LABS: Glucose, Whole Blood 101 mg/dL (60-115)
[2022-03-01] MEDS: Doxycycline Hyclate 100 MG in 0.9 % Sodium Chloride 250 ML 166.67 MG IV ×2 (01:38→12:47)
[2022-03-01] MEDS: Heparin Sodium,Porcine 5,000 UNIT/ML VIAL 5000 UNIT SUBCUT ×3 (06:36→22:34)
[2022-03-01] MEDS: Levothyroxine Sodium 125 MCG TABLET PO ×2 (06:36→09:24)
[2022-03-01 07:07] LABS: Anion Gap 19 (12-20); Blood Urea Nitrogen 43 mg/dL (9-16); Calcium 8.3 mg/dL (8.4-10.2); Carbon Dioxide 25 mmol/L (22-29); Chloride 105 mmol/L (96-108); Creatinine Clr Calc Pharmacy 56.7; Estimated Glomerular Filt Rate 45; Glucose Random 102 mg/dL (60-115); Potassium 4.6 mmol/L (3.3-5.1); Sodium 144 mmol/L (135-145)
--- NOTE | 2022-03-01 09:16 | P.PNIM_ITS ---
Subjective Subjective Date of Service: 03/01/22 Interval History: cc: sob interval history:weakness Cardiovascular Cardiovascular: Reports no additional cardiovascular complaints Gastrointestinal Gastrointestinal: Reports no additional gastrointestinal complaints Physical Exam Vital Signs: Vital Signs: Last Vital Signs Temp 96.8 F 03/01/22 08:13 Pulse 71 03/01/22 08:13 Resp 14 03/01/22 08:13 BP 117/65 03/01/22 08:13 Pulse Ox 100 03/01/22 08:13 O2 Del Method 03/01/22 08:13 O2 Flow Rate 3 03/01/22 08:13 FiO2 30 02/27/22 11:13 BMI result Body Mass Index 39.2 General: AO X 3, no acute distress, ill appearing Resp: CTA bilateral, no accessory muscles used CVS: S1,S2,RRR GI: soft, non tender, non distended Neuro: grossly weak, alert Psych: appropriate affect, appropriate insight Objective Data Active Medications Acetaminophen (Acetaminophen 325 Mg Tablet) 650 mg PO Q6H PRN PRN Reason: mild pain Last Admin: 02/28/22 21:17 Dose: 650 mg Documented By: YOHANNES Albuterol Sulfate (Albuterol Sulfate 90 Mcg 8 Gm Inhaler) 2 puff INHALE Q6H PRN PRN Reason: Respiratory Distress Aspirin (Aspirin Enteric Coated 81 Mg Tablet.) 81 mg PO DAILY [facility] Stop: 03/05/22 09:01 Last Admin: 02/28/22 09:20 Dose: 81 mg Documented By: BIJU Atorvastatin Calcium (Atorvastatin Calcium 40 Mg Tablet) 40 mg PO BEDTIME [facility] Last Admin: 02/28/22 21:16 Dose: 40 mg Documented By: YOHANNES Clopidogrel Bisulfate (Clopidogrel Bisulfate 75 Mg Tablet) 75 mg PO DAILY [facility] Last Admin: 02/28/22 09:19 Dose: 75 mg Documented By: BIJU Furosemide (Furosemide 40 Mg Tablet) 40 mg PO DAILY [facility]; Protocol Last Admin: 02/28/22 09:19 Dose: 40 mg Documented By: BIJU Heparin Sodium (Porcine) (Heparin Sodium,Porcine 5,000 Unit/Ml Vial) 5,000 unit SUBCUT Q8H [facility] Last Admin: 03/01/22 06:36 Dose: 5,000 unit Documented By: YOHANNES Levofloxacin (Levaquin) 250 mg in 50 mls @ 50 mls/hr IV Q24H [facility] Last Infusion: 02/28/22 15:49 Dose: 0 mls/hr Documented By: BIJU Doxycycline Hyclate 100 mg/ (Sodium Chloride) 250 mls @ 166.67 mls/hr IV Q12H [facility] Last Infusion: 03/01/22 03:20 Dose: 0 mls/hr Documented By: YOHANNES Insulin Human Lispro (Insulin Lispro 100 Unit/Ml 3 Ml Vial) 0 unit SUBCUT Q6H [facility]; Protocol Last Admin: 03/01/22 07:09 Dose: Not Given Documented By: NIKA Non-Admin Reason: No Insulin Coverage Levothyroxine Sodium (Levothyroxine Sodium 125 Mcg Tablet) 125 mcg PO DAILY@0600 [facility] Last Admin: 03/01/22 06:36 Dose: 125 mcg Documented By: YOHANNES Levothyroxine Sodium (Levothyroxine Sodium 125 Mcg Tablet) 125 mcg PO DAILY [facility] Last Admin: 02/28/22 09:20 Dose: 125 mcg Documented By: BIJU Losartan Potassium (Losartan Potassium 50 Mg Tablet) 50 mg PO DAILY [facility]; Protocol Last Admin: 02/28/22 09:19 Dose: 50 mg Documented By: BIJU Metoprolol Tartrate (Metoprolol Tartrate 50 Mg Tablet) 50 mg PO BID [facility]; Protocol Last Admin: 02/28/22 21:10 Dose: Not Given Documented By: YOHANNES Non-Admin Reason: Decreased Heart Rate Metoprolol Tartrate (Metoprolol Tartrate 25 Mg Tablet) 25 mg PO TID [facility]; Protocol Last Admin: 02/28/22 21:10 Dose: Not Given Documented By: YOHANNES Non-Admin Reason: Decreased Heart Rate Omeprazole (Omeprazole 20 Mg/10 Ml Susp.Recon) 40 mg PO DAILY@0630 [facility] Last Admin: 03/01/22 06:36 Dose: 40 mg Documented By: YOHANNES Pharmacy Consult (Consult Rx Vancomycin Dosing) 1 each MISCELLANE DAILY PRN PRN Reason: Consult order Pharmacy Consult (Consult Rx Vancomycin Dosing) 1 each MISCELLANE DAILY PRN PRN Reason: Consult order Labs CBC & Chem 7: 02/28/22 07:02 03/01/22 06:18 Labs: Laboratory Results - last 24 hr 10/16/22 10/16/22 10/16/22 07:02 11:21 16:43 Anion Gap Estim Creat Clear Calc Estimated GFR POC Glucose 171 H 90 Random Glucose TNP Calcium 02/28/22 03/01/22 03/01/22 20:42 01:14 06:18 Anion Gap 19 Estim Creat Clear Calc 56.7 Estimated GFR 45 POC Glucose 96 101 Random Glucose 102 Calcium 8.3 L Assessment and Plan (1) (HFpEF) heart failure with preserved ejection fraction: Status: Acute Plan 76F with PMH chronic hypoxic respiratory failure on 3L home o2 due to copd, obesity, pafib s/p watchman, hfpef, hypothryoid, ckd III, dementia, htn, gerd, presented to ED 02/18/22 with sob, required intubation and admission to ICU. patient was treated for community acquired pneumonia and CHF, kenji on ckd III, was eventually extubated, downgraded to medical floor 02/26/22 on high flow. 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
[2022-03-01] MEDS: Metoprolol Tartrate 50 MG TABLET PO ×2 (09:24→22:28)
[2022-03-01] MEDS: Losartan Potassium 50 MG TABLET PO (09:24)
[2022-03-01] MEDS: Aspirin Enteric Coated 81 MG TABLET.DR PO (09:24)
[2022-03-01] MEDS: Furosemide 40 MG TABLET PO (09:25)
[2022-03-01] MEDS: Metoprolol Tartrate 25 MG TABLET PO ×3 (09:25→22:29)
[2022-03-01] MEDS: Clopidogrel Bisulfate 75 MG TABLET PO (09:25)
[2022-03-01 12:14] LABS: Glucose, Whole Blood 111 mg/dL (60-115)
--- NOTE | 2022-03-01 12:51 | MHC.SL.SWA ---
Speech Pathologist Impression: Oral phase dysphagia Risk of Aspiration Due to: History of Pneumonia Dysphasia Diet Status: No Change Liquid Consistency and Strategies for Safe Swallow: Liquid Intake Recommendation: Thin Liquid Intake Strategies: Small Sips Solid Food Consistency: Dietary Recommendations: Regular Additional Modifications to Solid Foods: No overt s/s of aspiration with PO trials this afternoon. Pt w/ mild oral phase dysphagia, secondary to edentulous state. Pt reports she has no difficulties chewing or swallow though she does not have dentures. She stated, I can eat corn on the cob no problem and denies having to avoid eating any foods. Recommend continue with REGULAR solids and THIN liquids, pills WHOLE with LIQUID. Recommend pt self-select foods which are easy to chew. Avoid tough, hard to chew solids. Recommend strategies to ease mastication and promote oral clearance: take small bites, chew/mash food well, clear oral cavity before taking more bites, moisten and soften foods with sauces and gravies, alternate bites of food with sips of liquid. SPORTS STATISTICIAN updated MD, RN, RD of recommendations via [employer] Message. Further ST intervention no longer warranted. Please re-refer if there are any changes or further concern. Oral Medication Intake: Whole with Liquid Please contact the pharmacy regarding appropriate crushable or liquid drug formulations that are available whenever modified delivery is recommended. Compensatory Strategies and Precautions to be Taken for Safe Swallow: Sitting Upright (90 deg) Small Bites and Sips Alternate Liquids/Solids Rate of Ingestion Change Avoid Specific Foods Supervision While Eating and Drinking for Safe Swallow: Intermittent Supervision Foods to Avoid: Hard, difficult to chew solids Recommendation for Speech: D/C Skid Adzer Clinican/Clinical Fellow: No Supervisory Statement: I have reviewed and agree with the student/clinical fellow's documentation: N/A Speech Language Pathologist: Sheree Wren M.A., CCC-SPORTS STATISTICIAN
--- NOTE | 2022-03-01 12:56 | MHC.SL.SWA ---
Speech Pathologist Impression: Oral phase dysphagia Risk of Aspiration Due to: History of Pneumonia Dysphasia Diet Status: Once cleared from clear liquid diet, recommend upgrade to regular/thin Liquid Consistency and Strategies for Safe Swallow: Liquid Intake Recommendation: Thin Liquid Intake Strategies: Small Sips Solid Food Consistency: Dietary Recommendations: Regular Additional Modifications to Solid Foods: No overt s/s of aspiration with PO trials this afternoon. Pt w/ mild oral phase dysphagia, secondary to edentulous state. Pt reports she has no difficulties chewing or swallow though she does not have dentures. She stated, I can eat corn on the cob no problem and denies having to avoid eating any foods. Once medically cleared from Clear Liquid Diet, recommend REGULAR solids and THIN liquids, pills WHOLE with LIQUID. No changes made to diet order at this time. Recommend pt self-select foods which are easy to chew. Avoid tough, hard to chew solids. Recommend strategies to ease mastication and promote oral clearance: take small bites, chew/mash food well, clear oral cavity before taking more bites, moisten and soften foods with sauces and gravies, alternate bites of food with sips of liquid. SCREW MACHINE OPERATOR updated MD, RN, RD of recommendations via [employer] Message. Further ST intervention no longer warranted. Please re-refer if there are any changes or further concern. Oral Medication Intake: Whole with Liquid Please contact the pharmacy regarding appropriate crushable or liquid drug formulations that are available whenever modified delivery is recommended. Compensatory Strategies and Precautions to be Taken for Safe Swallow: Sitting Upright (90 deg) Small Bites and Sips Alternate Liquids/Solids Rate of Ingestion Change Avoid Specific Foods Supervision While Eating and Drinking for Safe Swallow: Total Supervision (1:1) Foods to Avoid: Hard, difficult to chew solids Recommendation for Speech: D/C Tooth Grinder Clinican/Clinical Fellow: No Supervisory Statement: I have reviewed and agree with the student/clinical fellow's documentation: N/A Speech Language Pathologist: Sheree Wren M.A., [facility]-SCREW MACHINE OPERATOR
--- NOTE | 2022-03-01 13:18 | MHC.CLN ---
F/U PT TRANSFERRED TO MEDICAL FLOOR DIET RX: C/L-APPROPRIATE SUPERVISOR BLASTING FOLLOWING AND RECOMMENDED REGULAR CONSISTENCY WHEN DIET TO ADVANCE; RECOMMEND ADDING ENSURE BID TO INCREASE KCALS SUPP TO PROVIDE 700KCALS, 40G PROTEIN MONITOR PO INTAKE CLOSELY
[2022-03-01] MEDS: levoFLOXacin/D5W 250 MG/50 ML PIGGYBACK 50 MG IV (14:41)
[2022-03-01 17:38] LABS: Glucose, Whole Blood 84 mg/dL (60-115)
--- NOTE | 2022-03-01 18:43 | PM.PNNEP ---
Subjective Subjective Date of Service: 03/01/22 Interval history: CHart Reviewed. Events noted. Physical Exam Vital Signs: Vital Signs: Last Vital Signs Temp 97 F 03/01/22 15:54 Pulse 61 03/01/22 15:54 Resp 19 03/01/22 15:54 BP 127/77 03/01/22 15:54 Pulse Ox 98 03/01/22 15:54 O2 Del Method 03/01/22 15:54 O2 Flow Rate 2 03/01/22 15:54 FiO2 30 02/27/22 11:13 BMI result Body Mass Index 39.2 Const: General: cooperative Orientation/consciousness: patient oriented x3 HEENT: Head: Yes normal to inspection, Yes normocephalic and Yes atraumatic Neck: Neck: Yes no JVD Resp: Auscultation: clear to auscultation bilaterally Cardio: Jugular venous distension: no JVD Rate: regular rate Rhythm: regular rhythm Heart sounds: S1 normal heart sound present and S2 normal heart sound present GI: Auscultation: normal bowel sounds Neuro: General: patient oriented x3 Extrem: General: Yes no clubbing, cyanosis or edema Objective Data Labs CBC & Chem 7: 02/28/22 07:02 03/01/22 06:18 Labs: Laboratory Results - last 24 hr 02/28/22 03/01/22 03/01/22 20:42 01:14 06:18 Sodium 144 Potassium 4.6 Chloride 105 Carbon Dioxide 25 Anion Gap 19 BUN 43 H Creatinine 1.17 Estim Creat Clear Calc 56.7 Estimated GFR 45 POC Glucose 96 101 Random Glucose 102 Calcium 8.3 L 03/01/22 03/01/22 11:37 17:35 Sodium Potassium Chloride Carbon Dioxide Anion Gap BUN Creatinine Estim Creat Clear Calc Estimated GFR POC Glucose 111 84 Random Glucose Calcium Microbiology Microbiology Results: Microbiology 02/25/22 09:27 Sputum - Suctioned Gram Stain - Final 02/25/22 09:27 Sputum - Suctioned Sputum Culture - Final No growth. 02/24/22 22:38 Blood - Venous Blood Culture - Preliminary No growth after 48 hours. 02/24/22 22:38 Blood - Venous Blood Culture - Preliminary No growth after 48 hours. 02/23/22 09:15 Sputum - Suctioned Gram Stain - Final 02/23/22 09:15 Sputum - Suctioned Sputum Culture - Final Methicillin Res Staph Aureus 02/18/22 15:05 Blood - Venous Blood Culture - Final No growth after 5 days. 02/18/22 15:05 Blood - Venous Blood Culture - Final No growth after 5 days. 02/19/22 09:47 Sputum - Suctioned Gram Stain - Final 02/19/22 09:47 Sputum - Suctioned Sputum Culture - Final 02/18/22 Unknown Urine clean catch - Urine smith top Urine Culture - Final Escherichia coli Procedures Date of Service Date of Service: 03/01/22 Assessment & Plan Assessment and plan (1) CKD (chronic kidney disease) stage 3, GFR 30-59 ml/min: Status: Acute Assessment and Plan: KENJI due to compromised kidney perfusion and tubular stress known CKD baseline Scr ~ 1.3 mg/dl followed by Dr Hi h/o left renal atrophy h/o diastolic dysfunction REC continue oral furosemide follow kidney function and electrolytes S-Cr back to BL. Nephrology will sign off. Call with questions. (2) KENJI (acute kidney injury): Status: Acute Time Spent With Patient Time: Total time spent is greater than 50% in coordination of care (as documented) at patient's floor/unit and/or counseling patient: Progress Note: Quality Stroke Does the patient have a stroke diagnosis?: No
[2022-03-01 19:34] LABS: CDiff Gene PCR POSITIVE (Negative)
[2022-03-01 20:43] LABS: CDIFF Internal ctrl Dots and bkg OK (V); CDiff Toxin Negative (Negative)
[2022-03-01] MEDS: Atorvastatin Calcium 40 MG TABLET PO (22:28)
[2022-03-02] VITALS (7 sets, daily range): BP systolic 117–154; BP diastolic 56–93; PULSE 55–70; RESP 16–22; TEMP 35.9–36.6; O2SAT 98–100
[2022-03-02 01:39] LABS: Glucose, Whole Blood 100 mg/dL (60-115)
[2022-03-02] MEDS: Doxycycline Hyclate 100 MG in 0.9 % Sodium Chloride 250 ML 166.67 MG IV ×2 (02:29→13:42)
[2022-03-02] MEDS: Heparin Sodium,Porcine 5,000 UNIT/ML VIAL 5000 UNIT SUBCUT ×3 (06:11→20:52)
[2022-03-02] MEDS: Levothyroxine Sodium 125 MCG TABLET PO ×2 (06:12→09:42)
[2022-03-02] MEDS: Acetaminophen 325 MG TABLET 650 MG PO (06:39)
[2022-03-02 07:11] LABS: Glucose, Whole Blood 104 mg/dL (60-115)
[2022-03-02 07:32] LABS: Anion Gap 17 (12-20); Blood Urea Nitrogen 35 mg/dL (9-16); Calcium 8.2 mg/dL (8.4-10.2); Carbon Dioxide 27 mmol/L (22-29); Chloride 105 mmol/L (96-108); Creatinine Clr Calc Pharmacy 57.2; Estimated Glomerular Filt Rate 45; Glucose Random 100 mg/dL (60-115); Sodium 145 mmol/L (135-145)
[2022-03-02] MEDS: Metoprolol Tartrate 50 MG TABLET PO ×2 (09:40→20:47)
[2022-03-02] MEDS: Aspirin Enteric Coated 81 MG TABLET.DR PO (09:40)
[2022-03-02] MEDS: Metoprolol Tartrate 25 MG TABLET PO ×3 (09:40→20:51)
[2022-03-02] MEDS: Clopidogrel Bisulfate 75 MG TABLET PO (09:40)
[2022-03-02] MEDS: Losartan Potassium 50 MG TABLET PO (09:41)
[2022-03-02] MEDS: Furosemide 40 MG TABLET PO (09:41)
--- NOTE | 2022-03-02 11:12 | P.PNIM_ITS ---
Subjective Subjective Date of Service: 03/02/22 Interval History: cc: sob interval history:weakness improving Cardiovascular Cardiovascular: Reports no additional cardiovascular complaints Gastrointestinal Gastrointestinal: Reports no additional gastrointestinal complaints Physical Exam Vital Signs: Vital Signs: Last Vital Signs Temp 96.7 F L 03/02/22 08:00 Pulse 55 03/02/22 08:52 Resp 20 03/02/22 08:00 BP 136/74 03/02/22 02:47 Pulse Ox 98 03/02/22 08:52 O2 Del Method 03/02/22 08:00 O2 Flow Rate 3 03/02/22 08:00 FiO2 30 02/27/22 11:13 BMI result Body Mass Index 39.2 General: AO X 3, no acute distress, ill appearing Resp: CTA bilateral, no accessory muscles used CVS: S1,S2,RRR GI: soft, non tender, non distended Neuro: grossly weak, alert Psych: appropriate affect, appropriate insight Objective Data Active Medications Acetaminophen (Acetaminophen 325 Mg Tablet) 650 mg PO Q6H PRN PRN Reason: mild pain Last Admin: 03/02/22 06:39 Dose: 650 mg Documented By: YOHANNES Albuterol Sulfate (Albuterol Sulfate 90 Mcg 8 Gm Inhaler) 2 puff INHALE Q6H PRN PRN Reason: Respiratory Distress Aspirin (Aspirin Enteric Coated 81 Mg Tablet.) 81 mg PO DAILY [facility] Stop: 03/05/22 09:01 Last Admin: 03/02/22 09:40 Dose: 81 mg Documented By: JEANETTE Atorvastatin Calcium (Atorvastatin Calcium 40 Mg Tablet) 40 mg PO BEDTIME [facility] Last Admin: 03/01/22 22:28 Dose: 40 mg Documented By: YOHANNES Clopidogrel Bisulfate (Clopidogrel Bisulfate 75 Mg Tablet) 75 mg PO DAILY [facility] Last Admin: 03/02/22 09:40 Dose: 75 mg Documented By: JEANETTE Furosemide (Furosemide 40 Mg Tablet) 40 mg PO DAILY [facility]; Protocol Last Admin: 03/02/22 09:41 Dose: 40 mg Documented By: JEANETTE Heparin Sodium (Porcine) (Heparin Sodium,Porcine 5,000 Unit/Ml Vial) 5,000 unit SUBCUT Q8H [facility] Last Admin: 03/02/22 06:11 Dose: 5,000 unit Documented By: YOHANNES Levofloxacin (Levaquin) 250 mg in 50 mls @ 50 mls/hr IV Q24H [facility] Last Infusion: 03/01/22 16:04 Dose: 0 mls/hr Documented By: NIKA Doxycycline Hyclate 100 mg/ (Sodium Chloride) 250 mls @ 166.67 mls/hr IV Q12H [facility] Last Infusion: 03/02/22 04:34 Dose: 0 mls/hr Documented By: YOHANNES Levothyroxine Sodium (Levothyroxine Sodium 125 Mcg Tablet) 125 mcg PO DAILY@0600 [facility] Last Admin: 03/02/22 06:12 Dose: 125 mcg Documented By: YOHANNES Levothyroxine Sodium (Levothyroxine Sodium 125 Mcg Tablet) 125 mcg PO DAILY [facility] Last Admin: 03/02/22 09:42 Dose: 125 mcg Documented By: JEANETTE Losartan Potassium (Losartan Potassium 50 Mg Tablet) 50 mg PO DAILY [facility]; Protocol Last Admin: 03/02/22 09:41 Dose: 50 mg Documented By: JEANETTE Metoprolol Tartrate (Metoprolol Tartrate 50 Mg Tablet) 50 mg PO BID [facility]; Protocol Last Admin: 03/02/22 09:40 Dose: 50 mg Documented By: JEANETTE Metoprolol Tartrate (Metoprolol Tartrate 25 Mg Tablet) 25 mg PO TID [facility]; Protocol Last Admin: 03/02/22 09:40 Dose: 25 mg Documented By: JEANETTE Omeprazole (Omeprazole 20 Mg/10 Ml Susp.Recon) 40 mg PO DAILY@0630 [facility] Last Admin: 03/02/22 06:12 Dose: 40 mg Documented By: YOHANNES Pharmacy Consult (Consult Rx Vancomycin Dosing) 1 each MISCELLANE DAILY PRN PRN Reason: Consult order Pharmacy Consult (Consult Rx Vancomycin Dosing) 1 each MISCELLANE DAILY PRN PRN Reason: Consult order Labs CBC & Chem 7: 02/28/22 07:02 03/02/22 06:28 Labs: Laboratory Results - last 24 hr 03/01/22 03/01/22 03/01/22 11:37 17:35 18:00 Anion Gap Estim Creat Clear Calc Estimated GFR POC Glucose 111 84 Random Glucose Calcium C. difficile Tox B Gene POSITIVE A* C. difficile Toxin A&B Negative C. difficile Interpret SEE NOTE 03/01/22 03/02/22 03/02/22 23:43 06:28 07:03 Anion Gap 17 Estim Creat Clear Calc 57.2 Estimated GFR 45 POC Glucose 100 104 Random Glucose 100 Calcium 8.2 L C. difficile Tox B Gene C. difficile Toxin A&B C. difficile Interpret Microbiology Microbiology Results: Microbiology 02/24/22 22:38 Blood Culture - Final Blood - Venous No growth after 5 days. 02/24/22 22:38 Blood Culture - Final Blood - Venous No growth after 5 days. Assessment and Plan (1) (HFpEF) heart failure with preserved ejection fraction: Status: Acute Plan 76F with PMH chronic hypoxic respiratory failure on 3L home o2 due to copd, obesity, pafib s/p watchman, hfpef, hypothryoid, ckd III, dementia, htn, gerd, presented to ED 02/18/22 with sob, required intubation and admission to ICU. patient was treated for community acquired pneumonia and CHF, kenji on ckd III, was eventually extubated, downgraded to medical floor 02/26/22 on high flow. 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
[2022-03-02] MEDS: levoFLOXacin/D5W 250 MG/50 ML PIGGYBACK 50 MG IV (12:34)
[2022-03-02 15:27] LABS: Kappa, Serum 153 mg/dL (176-443); Kappa/Lambda Ratio, Serum 1.61 (1.29-2.55); Lambda, Serum 95 mg/dL (91-240)
--- NOTE | 2022-03-02 15:34 | MHC.CM.PN ---
[facility]
--- NOTE | 2022-03-02 17:22 | MHC.SLORD ---
Speech Language Pathology Order Status: Patient seen for follow up this p.m.., as MD order for Regular Diet/Thin Liquids did not go through till a.m. 03/02. Patient reported that she had received lunch, but was not pleased with it It needed seasoning. Patient reported that she had ordered something to her pleasing for dinner. As diet is no as recommended, will d/c speech.
[2022-03-02] MEDS: Atorvastatin Calcium 40 MG TABLET PO (21:15)
--- NOTE | 2022-03-02 21:40 | PM.EVENT ---
Event Note Date of Service: 03/02/22 Event Note: pt noted to have duplicate orders of metoprolol . will cancel the 50 mg ordered by ICU attending. continue home dose of 25 TID . HR stable
[2022-03-03] VITALS (7 sets, daily range): BP systolic 110–133; BP diastolic 56–84; PULSE 63–84; RESP 17–20; TEMP 35.8–36.7; O2SAT 96–100; BMI 38.9
[2022-03-03] MEDS: Doxycycline Hyclate 100 MG in 0.9 % Sodium Chloride 250 ML 166.67 MG IV ×2 (00:49→13:03)
[2022-03-03] MEDS: Acetaminophen 325 MG TABLET 650 MG PO ×3 (01:38→21:46)
--- NOTE | 2022-03-03 02:16 | PC.NURSE ---
Patient is alert and oriented. Complained of Pain 3-08/23. PRN Tyenol administered for relief. Scheduled IV doxycycline administered and tolerated well by patient. Will continue to monitor.
[2022-03-03] MEDS: Heparin Sodium,Porcine 5,000 UNIT/ML VIAL 5000 UNIT SUBCUT ×3 (05:08→21:47)
[2022-03-03] MEDS: Levothyroxine Sodium 125 MCG TABLET PO ×2 (05:08→09:49)
[2022-03-03 07:15] LABS: Hematocrit 34.6 % (37.0-47.0); Hemoglobin 10.6 g/dl (12.0-16.0); Mean Corpuscular HGB Conc 30.6 g/dl (31.0-35.0); Mean Corpuscular Hemoglobin 28.6 pg (27.0-33.0); Mean Corpuscular Volume 93.3 fL (80.0-98.0); Mean Platelet Volume 10.2 fL (9.4-12.3); Platelet Count 457 X10*3/uL (160-400); Red Blood Count 3.71 X10*6/uL (4.20-5.50); White Blood Count 6.5 X10*3/uL (4.8-10.8)
[2022-03-03 07:44] LABS: Anion Gap 14 (12-20); Blood Urea Nitrogen 34 mg/dL (9-16); Calcium 8.4 mg/dL (8.4-10.2); Carbon Dioxide 30 mmol/L (22-29); Chloride 105 mmol/L (96-108); Creatinine Clr Calc Pharmacy 56.5; Estimated Glomerular Filt Rate 45; Glucose Fasting 108 mg/dL (60-99); Magnesium 1.6 mg/dL (1.6-2.6); Potassium 3.9 mmol/L (3.3-5.1); Sodium 145 mmol/L (135-145)
[2022-03-03] MEDS: Metoprolol Tartrate 25 MG TABLET PO ×3 (09:47→21:46)
[2022-03-03] MEDS: Aspirin Enteric Coated 81 MG TABLET.DR PO (09:49)
[2022-03-03] MEDS: Furosemide 40 MG TABLET PO (09:49)
[2022-03-03] MEDS: Clopidogrel Bisulfate 75 MG TABLET PO (09:50)
[2022-03-03] MEDS: Losartan Potassium 50 MG TABLET PO (10:10)
[2022-03-03] MEDS: levoFLOXacin/D5W 250 MG/50 ML PIGGYBACK 50 MG IV (13:02)
--- NOTE | 2022-03-03 14:10 | P.DS_ITS ---
DS: Providers Provider Date of Service: 03/03/22 Date of admission: 02/18/22 17:18 Primary care physician: Unknown Physician Consults: 02/20/22 08:47 Consult to Nephrology Routine Consulting Provider: Leonidas Richards Reason for consultation: KENJI, heart failure Has provider been notified: Yes 02/20/22 08:48 Consult to Cardiology Routine Consulting Provider: Enmanuel Parikh Reason for consultation: heart failure Has provider been notified: Yes DS: Diagnosis Discharge Diagnosis (1) (HFpEF) heart failure with preserved ejection fraction: Status: Acute DS: Summary Hospital Course Hospital Course: The patient had prolonged hospital stay, for full details please return to EMR. Admission note HPI by ICU provider? This is a 76-year-old female who has been residing for about a week at a local assisted living facility, has a history of COPD with 60 pack-year history of tobacco consumption who quit in October of last year) her certified court interpreter is Dr. Graves), history of CHF, oxygen dependent at 2 L at rest and 3 L with exertion, pneumonia, hypothyroidism, atrial fibrillation not on anticoagulation therapy who has a watch man device implanted by Dr. 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 The patient presented to the emergency room with complaints of 3 days worth of shortness of breath and weakness, the patient was noted to be incontinent of urine, at the assisted living facility, they increased her oxygen to 4 L, upon being checked by the daughter, she was noted the patient was struggling to breathe and decided to call EMS.? Patient arrived to the emergency room with noticeable difficulty breathing, lethargic with a respiratory rate 40 it had been placed on a bag valve mask ventilation to help her during transport.? Patient at the time had not been able to give a history in fact she had being difficult to arouse even with painful stimuli., breath sounds were diminished. Given the significant distress, lack of airway protection the patient was intubated.? Her workup was significant for white count of 16.9, H&H of 10 and 34 respectively, lactic acid of 2.3, troponin of 73, BNP of 222, her arterial blood gas showed pH of 7.34, pCO2 of 35, PO2 of 82.? The x-ray done at the time showed bilateral patchy in the mid to lower lung bernstein with small pleural effusions which could represent either edema versus infectious or inflammatory process.? Patient had been treated with 1 L of IV fluids given the concern for underlying CHF history as well as throwing her into CHF with fast volume resuscitation.? She did receive Rocephin and Zithromax.? Subsequently IV fluids have been stopped and the patient had been given Lasix 40 mg IV given the suspicion for underlying CHF.? The patient was transferred to the ICU where she was briefly seen by Dr. Hunter who placed a left CVL. Hospital course The patient was an the ICU, intubated for airway protection as a result of acute on chronic hypoxic respiratory failure due to pneumonia and diastolic CHF exacerbation. Treated primarily with IV Lasix and antibiotics with fair response as she was weaned of the ventilator and extubated. Antibiotics was changed to vancomycin and Levaquin given the fact that patient grew MRSA in her sputum. Oxygen wean down to her home dose of 3 L. blood cultures remain negative. Switched back to oral Lasix. Kidney function noted to be worse at time of presentation likely from acute illness and heart failure improved back to baseline of CKD stage 3. Followed by Nephrology team who recommended outpatient follow-up. Evaluated by physical therapy for physical deconditioning recommended short-term rehab placement. Reported diarrhea, C diff: Antigen positive but no active infection. No treatment needed. Continue doxycycline for 5 more days Continue Lasix 40 mg daily Monitor your weight and report any changes to PCP Time Spent with Patient Time attestation: Total time spent providing and/or coordinating discharge services: Discharge coordination time: Greater than 30 minutes Quality: Safe Use of Opioids Does Pt have an Active Cancer Diagnosis on the Problem List?: No Quality: Stroke Does the patient have a stroke diagnosis?: No Physical Exam Vital Signs: Vital Signs: Last Vital Signs Temp 97.7 F 03/03/22 11:19 Pulse 70 03/03/22 11:19 Resp 18 03/03/22 11:19 BP 127/73 03/03/22 11:19 Pulse Ox 99 03/03/22 11:19 O2 Del Method 03/03/22 11:19 O2 Flow Rate 3 03/03/22 11:19 FiO2 30 02/27/22 11:13 BMI result Body Mass Index 38.9 Const: Other: Constitutional : Alert, interactive, not in distress Neck : Normal inspection, Supple Cardiovascular : RRR, no JVP, trace bilateral lower extremity edema Respiratory : fair bilateral air entry, no crackles, wheezes or rhonchi, on 3 L of oxygen Gastrointestinal: soft, lax, Normal bowel sounds, Non tender Skin : Warm, Dry Neurological : Alert & oriented to self but confused about other details, No focal deficit DS: Data Data Completed and Pending Labs on day of discharge: Laboratory Results - last 24 hr 02/20/22 03/03/22 03/03/22 13:17 07:02 07:02 WBC 6.5 RBC 3.71 L Hgb 10.6 L Hct 34.6 L MCV 93.3 MCH 28.6 MCHC 30.6 L RDW 16.0 Plt Count 457 H MPV 10.2 Absolute Nucleated RBC 0.000 Nucleated RBC % (auto) 0.0 Sodium 145 Potassium 3.9 Chloride 105 Carbon Dioxide 30 H Anion Gap 14 BUN 34 H Creatinine 1.17 Estim Creat Clear Calc 56.5 Estimated GFR 45 Random Glucose TNP Fasting Glucose 108 H Calcium 8.4 Magnesium 1.6 Dandridge/Lambda Ratio 1.61 Dandridge Light Chain Anal 153 L Lambda Light Chain Anal 95 Imaging Chest x-ray: Radiologist's impression: ITS Impressions Chest X-Ray 02/18/22 14:58 IMPRESSION: Endotracheal tube terminates 3.5 cm above the ivet. Bilateral patchy mid to lower lung opacities with small pleural effusions. This could be edema or associated with infectious/inflammatory process. Abdomen/Pelvis CT 02/18/22 16:31 IMPRESSION: 1. Left lower lobe airspace consolidation consistent with pneumonia. 2. Right middle and right lower lobe atelectasis and trace right pleural effusion. 3. Mild subcarinal lymphadenopathy, likely reactive. 4. No acute intra-abdominal process. 5. Small 3.1 cm infrarenal abdominal aortic aneurysm. Consider follow-up CT in 2-3 years. 6. Additional ancillary findings, as described. Chest CT 02/18/22 16:31 IMPRESSION: 1. Left lower lobe airspace consolidation consistent with pneumonia. 2. Right middle and right lower lobe atelectasis and trace right pleural effusion. 3. Mild subcarinal lymphadenopathy, likely reactive. 4. No acute intra-abdominal process. 5. Small 3.1 cm infrarenal abdominal aortic aneurysm. Consider follow-up CT in 2-3 years. 6. Additional ancillary findings, as described. Head CT 02/18/22 16:31 IMPRESSION: 1. No intracranial hemorrhage or acute edematous territorial infarct. 2. 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 Chest X-Ray 02/18/22 18:58 IMPRESSION: Left central line projects over proximal SVC. Endotracheal tube tip 4 cm above the ivet. There is enlargement of the cardiac silhouette and lower lung airspace disease, left greater than right. Chest X-Ray 02/19/22 18:51 IMPRESSION: Endotracheal tube terminates at 3 cm above the ivet. Stable bibasilar airspace opacities and pleural effusions. Venous Duplex 02/19/22 21:01 IMPRESSION: No DVT demonstrated in the bilateral lower extremities. Pulmonary Perfusion Imaging 02/20/22 18:50 IMPRESSION: 1. No segmental perfusion defects to suggest pulmonary embolus. Chest X-Ray 02/21/22 11:15 IMPRESSION: 1. Interval placement of a left-sided central venous catheter in appropriate position. 2. Endotracheal tube with its tip approximately 3.6 cm proximal to the ivet. Enterogastric tube in appropriate position. 3. Stable bilateral pleural effusions with adjacent atelectasis versus infiltrates as well as interstitial and pulmonary vascular prominence. Findings can be seen in the setting of pulmonary edema. Chest X-Ray 02/23/22 06:30 IMPRESSION: There has been no significant change. Pulmonary vascular congestion, bilateral opacification probably interstitial edema and bilateral subpulmonic pleural effusions. ET tube, gastric tube and central line in place properly positioned. Chest CT 02/25/22 17:40 IMPRESSION: Bilateral lower lobe dependent consolidation/atelectasis and bilateral small pleural effusions. Cardiomegaly with coronary artery calcifications. No pericardial effusion seen. Endotracheal tube, enteric tube and left central venous catheter are in satisfactory position. Fleischner guidelines were followed. Discharge Plan Discharge Anticipated Discharge Date/Time: 03/03/22 14:02 Patient Disposition: [facility] Discharge Diagnosis: Pneumonia, acute diastolic heart failure Acute on chronic kidney injury Physical deconditioning Referrals: [facility] [Provider Group] - 1 Week Discharge Medications: New doxycycline monohydrate 100 mg tablet 100 mg PO BID Qty: 10 0RF Continued levothyroxine 125 mcg Tablet 125 mcg PO DAILY Myrbetriq 25 mg Tablet Extended Release 24 Hr 25 mg PO DAILY metoprolol tartrate 25 mg Tablet 25 mg PO TID atorvastatin 40 mg Tablet 40 mg PO BEDTIME gabapentin 300 mg Capsule 300 mg PO DAILY fluticasone furoate-vilanterol [Breo Ellipta] 100-25 mcg/dose Blister With Device 1 inh INHALATION DAILY calcitriol 0.25 mcg Capsule 0.25 mcg PO Q2D@1000 clopidogrel 75 mg Tablet 75 mg PO DAILY furosemide 40 mg Tablet 40 mg PO DAILY losartan 50 mg Tablet 50 mg PO DAILY pantoprazole 40 mg Tablet,Delayed Release (Dr/Ec) 40 mg PO DAILY Spiriva with HandiHaler 18 mcg Capsule, W/Inhalation Device 1 cap INHALATION DAILY Rx Instructions: puncture 1 cap using device; one dose = 2 inhalations albuterol sulfate [Ventolin HFA] 90 mcg/actuation Hfa Aerosol Inhaler 2 puff INHALATION Q6H PRN (Reason: Respiratory Distress) ferrous sulfate 324 mg (65 mg iron) Tablet,Delayed Release (Dr/Ec) 324 mg PO DAILY docusate sodium 100 mg Capsule 100 mg PO BID sennosides [senna] 8.6 mg Tablet 17.2 mg PO BEDTIME aspirin 81 mg Tablet,Delayed Release (Dr/Ec) 81 mg PO DAILY Changed gabapentin 600 mg Tablet 300 mg PO BEDTIME Qty: 15 0RF Discharge Orders: Discharge Order (Routine); Ordered 03/03/22 Ordered By: Lane Kee Diet: Low salt diet Activity on Discharge: As tolerated Stand Alone Forms: Patient Portal Discharge page Care Plan Goals: Read below Health Concerns: Read below Plan of Treatment: Read below Assessment: You were admitted to the hospital with difficulty breathing requiring intubation and admission to ICU. Treated for pneumonia and heart failure exacerbation with good response as you were able to wean it down to your basic oxygen requirement of 3 L. Responded well to antibiotic and water pills. Your kidney function improved back to baseline. Continue doxycycline for 5 more days Continue Lasix 40 mg daily Monitor your weight and report any changes to PCP
--- NOTE | 2022-03-03 14:49 | MHC.CM.PN ---
DP: PT MEDICALLY CLEARED FOR DISCHARGE. ACCEPTED AT [facility] PENDING OON AUTH FROM [facility]. DAUGHTER/HCP SUMANTH SALGADO NOTIFIED VIA TELEPHONE. BLS BOOKED FOR 6 PM WITH [facility]. RN MADE AWARE.
[2022-03-03 15:24] LABS: COVID-19 Test Negative (Negative); IDNOW Serial# 9DB6401D
--- NOTE | 2022-03-03 16:37 | HO.PM.IMPN ---
Subjective Subjective Date of Service: 03/03/22 Interval History: the patient was seen and evaluated this morning Laying in bed, feels comfortable, confused Denies any fever, chills or shortness of breath, on 3 L of oxygen No reported other overnight events. Systemic review: No fever, chills or weakness No chest pain, palpitation No shortness of breath or coughing No abdominal pain, nausea or vomiting No urinary symptoms No any rash or wounds Physical Exam Vital Signs: Vital Signs: Last Vital Signs Temp 97.7 F 03/03/22 11:19 Pulse 70 03/03/22 11:19 Resp 18 03/03/22 11:19 BP 127/73 03/03/22 11:19 Pulse Ox 99 03/03/22 11:19 O2 Del Method 03/03/22 11:19 O2 Flow Rate 3 03/03/22 11:19 FiO2 30 02/27/22 11:13 BMI result Body Mass Index 38.9 Const: Other: Constitutional : Alert, interactive, not in distress Neck : Normal inspection, Supple Cardiovascular : RRR, no JVP, no lower extremity edema Respiratory : Decreased bilateral bilateral air entry, no crackles, no wheezes or rhonchi, on 3 L of oxygen Gastrointestinal: soft, lax, Normal bowel sounds, Non tender Skin : Warm, Dry Neurological : Alert & oriented to self and place, Objective Data Active Medications Acetaminophen (Acetaminophen 325 Mg Tablet) 650 mg PO Q6H PRN PRN Reason: mild pain Last Admin: 03/03/22 09:47 Dose: 650 mg Documented By: KADEEM Albuterol Sulfate (Albuterol Sulfate 90 Mcg 8 Gm Inhaler) 2 puff INHALE Q6H PRN PRN Reason: Respiratory Distress Aspirin (Aspirin Enteric Coated 81 Mg Tablet.) 81 mg PO DAILY [facility] Stop: 03/05/22 09:01 Last Admin: 03/03/22 09:49 Dose: 81 mg Documented By: KADEEM Atorvastatin Calcium (Atorvastatin Calcium 40 Mg Tablet) 40 mg PO BEDTIME [facility] Last Admin: 03/02/22 21:15 Dose: 40 mg Documented By: RYAN Clopidogrel Bisulfate (Clopidogrel Bisulfate 75 Mg Tablet) 75 mg PO DAILY [facility] Last Admin: 03/03/22 09:50 Dose: 75 mg Documented By: KADEEM Furosemide (Furosemide 40 Mg Tablet) 40 mg PO DAILY [facility]; Protocol Last Admin: 03/03/22 09:49 Dose: 40 mg Documented By: KADEEM Heparin Sodium (Porcine) (Heparin Sodium,Porcine 5,000 Unit/Ml Vial) 5,000 unit SUBCUT Q8H [facility] Last Admin: 03/03/22 14:39 Dose: 5,000 unit Documented By: KADEEM Levofloxacin (Levaquin) 250 mg in 50 mls @ 50 mls/hr IV Q24H [facility] Last Infusion: 03/03/22 14:09 Dose: 0 mls/hr Documented By: KADEEM Doxycycline Hyclate 100 mg/ (Sodium Chloride) 250 mls @ 166.67 mls/hr IV Q12H [facility] Last Infusion: 03/03/22 14:48 Dose: 0 mls/hr Documented By: KADEEM Levothyroxine Sodium (Levothyroxine Sodium 125 Mcg Tablet) 125 mcg PO DAILY@0600 [facility] Last Admin: 03/03/22 05:08 Dose: 125 mcg Documented By: RYAN Levothyroxine Sodium (Levothyroxine Sodium 125 Mcg Tablet) 125 mcg PO DAILY [facility] Last Admin: 03/03/22 09:49 Dose: 125 mcg Documented By: KADEEM Loperamide HCl (Loperamide Hcl 2 Mg Capsule) 2 mg PO Q4H PRN PRN Reason: diarrhea Losartan Potassium (Losartan Potassium 50 Mg Tablet) 50 mg PO DAILY [facility]; Protocol Last Admin: 03/03/22 10:10 Dose: 50 mg Documented By: KADEEM Metoprolol Tartrate (Metoprolol Tartrate 25 Mg Tablet) 25 mg PO TID [facility]; Protocol Last Admin: 03/03/22 14:39 Dose: 25 mg Documented By: KADEEM Omeprazole (Omeprazole 20 Mg/10 Ml Susp.Recon) 40 mg PO DAILY@0630 [facility] Last Admin: 03/03/22 06:09 Dose: 40 mg Documented By: RYAN Pharmacy Consult (Consult Rx Vancomycin Dosing) 1 each MISCELLANE DAILY PRN PRN Reason: Consult order Labs CBC & Chem 7: 03/03/22 07:02 03/03/22 07:02 Labs: Laboratory Results - last 24 hr 03/03/22 03/03/22 03/03/22 07:02 07:02 14:45 MCV 93.3 MCH 28.6 MCHC 30.6 L RDW 16.0 Plt Count 457 H MPV 10.2 Absolute Nucleated RBC 0.000 Nucleated RBC % (auto) 0.0 Anion Gap 14 Estim Creat Clear Calc 56.5 Estimated GFR 45 Random Glucose TNP Fasting Glucose 108 H Calcium 8.4 Magnesium 1.6 COVID-19 (JERRY) Negative COVID-19 Clin Com See Note Assessment and Plan (1) (HFpEF) heart failure with preserved ejection fraction: Status: Acute Plan 76F with PMH chronic hypoxic respiratory failure on 3L home o2 due to copd, obesity, pafib s/p watchman, hfpef, hypothryoid, ckd III, dementia, htn, gerd, presented to ED 02/18/22 with sob, required intubation and admission to ICU. patient was treated for community acquired pneumonia and CHF, kenji on ckd III, was eventually extubated, downgraded to medical floor 02/26/22 on high flow. 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
[2022-03-03] MEDS: Atorvastatin Calcium 40 MG TABLET PO (21:46)
[2022-03-03] MEDS: Albuterol Sulfate 90 MCG 8 GM INHALER 2 PUFF INHALE (22:01)
[2022-03-04] VITALS (8 sets, daily range): BP systolic 109–160; BP diastolic 58–76; PULSE 67–88; RESP 16–20; TEMP 36–36.7; O2SAT 96–99; BMI 38.9
[2022-03-04] MEDS: Doxycycline Hyclate 100 MG in 0.9 % Sodium Chloride 250 ML 166.67 MG IV ×2 (01:28→13:36)
[2022-03-04] MEDS: Albuterol Sulfate 90 MCG 8 GM INHALER 2 PUFF INHALE ×3 (05:33→20:10)
[2022-03-04] MEDS: Levothyroxine Sodium 125 MCG TABLET PO ×2 (05:33→08:47)
[2022-03-04] MEDS: Acetaminophen 325 MG TABLET 650 MG PO ×2 (05:33→14:00)
[2022-03-04] MEDS: Heparin Sodium,Porcine 5,000 UNIT/ML VIAL 5000 UNIT SUBCUT ×3 (05:33→22:55)
[2022-03-04 08:27] LABS: Blood Urea Nitrogen 34 mg/dL (9-16); Calcium 8.7 mg/dL (8.4-10.2); Creatinine Clr Calc Pharmacy 58.5; Estimated Glomerular Filt Rate 47; Glucose Random 105 mg/dL (60-115)
[2022-03-04 08:43] LABS: Anion Gap 21 (12-20); Carbon Dioxide 21 mmol/L (22-29); Chloride 108 mmol/L (96-108); Potassium 5.2 mmol/L (3.3-5.1); Sodium 145 mmol/L (135-145)
[2022-03-04] MEDS: Losartan Potassium 50 MG TABLET PO (08:47)
[2022-03-04] MEDS: Furosemide 40 MG TABLET PO (08:47)
[2022-03-04] MEDS: Aspirin Enteric Coated 81 MG TABLET.DR PO (08:47)
[2022-03-04] MEDS: Clopidogrel Bisulfate 75 MG TABLET PO (08:48)
[2022-03-04] MEDS: Metoprolol Tartrate 25 MG TABLET PO ×3 (08:48→20:11)
[2022-03-04] MEDS: levoFLOXacin/D5W 250 MG/50 ML PIGGYBACK 50 MG IV (13:39)
--- NOTE | 2022-03-04 13:43 | MHC.CM.PN ---
IMM DELIVERED CONTINUE TO AWAIT OON AUTH FROM [facility].
--- NOTE | 2022-03-04 15:38 | HO.PM.IMPN ---
Subjective Subjective Date of Service: 03/04/22 Interval History: the patient was seen and evaluated this morning Laying in bed, feels comfortable, mildly confused Denies any fever, chills or shortness of breath, on 2-3 L of oxygen No reported other overnight events. Systemic review: No fever, chills or weakness No chest pain, palpitation No shortness of breath or coughing No abdominal pain, nausea or vomiting No urinary symptoms No any rash or wounds Physical Exam Vital Signs: Vital Signs: Last Vital Signs Temp 98.0 F 03/04/22 14:59 Pulse 80 03/04/22 14:59 Resp 18 03/04/22 14:59 BP 127/58 L 03/04/22 14:59 Pulse Ox 97 03/04/22 14:59 O2 Del Method 03/04/22 14:59 O2 Flow Rate 1 03/04/22 14:59 FiO2 30 02/27/22 11:13 BMI result Body Mass Index 38.9 Const: Other: Constitutional : Alert, interactive, not in distress Neck : Normal inspection, Supple Cardiovascular : RRR, no JVP, no lower extremity edema Respiratory : Decreased bilateral bilateral air entry, no crackles, no wheezes or rhonchi, on 3 L of oxygen Gastrointestinal: soft, lax, Normal bowel sounds, Non tender Skin : Warm, Dry, CVC in place Neurological : Alert & oriented to self and place, Objective Data Active Medications Acetaminophen (Acetaminophen 325 Mg Tablet) 650 mg PO Q6H PRN PRN Reason: mild pain Last Admin: 03/04/22 14:00 Dose: 650 mg Documented By: JESE Albuterol Sulfate (Albuterol Sulfate 90 Mcg 8 Gm Inhaler) 2 puff INHALE Q6H PRN PRN Reason: Respiratory Distress Last Admin: 03/04/22 13:51 Dose: 2 puff Documented By: JESE Aspirin (Aspirin Enteric Coated 81 Mg Tablet.) 81 mg PO DAILY [facility] Stop: 03/05/22 09:01 Last Admin: 03/04/22 08:47 Dose: 81 mg Documented By: JESE Atorvastatin Calcium (Atorvastatin Calcium 40 Mg Tablet) 40 mg PO BEDTIME [facility] Last Admin: 03/03/22 21:46 Dose: 40 mg Documented By: BJ Clopidogrel Bisulfate (Clopidogrel Bisulfate 75 Mg Tablet) 75 mg PO DAILY [facility] Last Admin: 03/04/22 08:48 Dose: 75 mg Documented By: JESE Furosemide (Furosemide 40 Mg Tablet) 40 mg PO DAILY [facility]; Protocol Last Admin: 03/04/22 08:47 Dose: 40 mg Documented By: JESE Heparin Sodium (Porcine) (Heparin Sodium,Porcine 5,000 Unit/Ml Vial) 5,000 unit SUBCUT Q8H [facility] Last Admin: 03/04/22 13:52 Dose: 5,000 unit Documented By: JESE Levofloxacin (Levaquin) 250 mg in 50 mls @ 50 mls/hr IV Q24H [facility] Last Infusion: 03/04/22 14:46 Dose: 0 mls/hr Documented By: JESE Doxycycline Hyclate 100 mg/ (Sodium Chloride) 250 mls @ 166.67 mls/hr IV Q12H [facility] Last Infusion: 03/04/22 15:14 Dose: 0 mls/hr Documented By: JESE Levothyroxine Sodium (Levothyroxine Sodium 125 Mcg Tablet) 125 mcg PO DAILY@0600 [facility] Last Admin: 03/04/22 05:33 Dose: 125 mcg Documented By: BJ Levothyroxine Sodium (Levothyroxine Sodium 125 Mcg Tablet) 125 mcg PO DAILY [facility] Last Admin: 03/04/22 08:47 Dose: 125 mcg Documented By: JESE Loperamide HCl (Loperamide Hcl 2 Mg Capsule) 2 mg PO Q4H PRN PRN Reason: diarrhea Losartan Potassium (Losartan Potassium 50 Mg Tablet) 50 mg PO DAILY [facility]; Protocol Last Admin: 03/04/22 08:47 Dose: 50 mg Documented By: JESE Metoprolol Tartrate (Metoprolol Tartrate 25 Mg Tablet) 25 mg PO TID [facility]; Protocol Last Admin: 03/04/22 14:00 Dose: 25 mg Documented By: JESE Omeprazole (Omeprazole 20 Mg/10 Ml Susp.Recon) 40 mg PO DAILY@0630 [facility] Last Admin: 03/04/22 05:33 Dose: 40 mg Documented By: BJ Pharmacy Consult (Consult Rx Vancomycin Dosing) 1 each MISCELLANE DAILY PRN PRN Reason: Consult order Labs CBC & Chem 7: 03/03/22 07:02 03/04/22 07:29 Labs: Laboratory Results - last 24 hr 03/04/22 07:29 Anion Gap 21 H Estim Creat Clear Calc 58.5 Estimated GFR 47 Random Glucose 105 Calcium 8.7 Assessment and Plan (1) Congestive heart failure with LV diastolic dysfunction, NYHA class 1: Status: Acute (2) Metabolic encephalopathy: Status: Acute (3) Respiratory failure: Status: Acute Plan 76F with PMH chronic hypoxic respiratory failure on 3L home o2 due to copd, obesity, pafib s/p watchman, hfpef, hypothryoid, ckd III, dementia, htn, gerd, presented to ED 02/18/22 with sob, required intubation and admission to ICU. patient was treated for community acquired pneumonia and CHF, kenji on ckd III, was eventually extubated, downgraded to medical floor 02/26/22 on high flow. 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
--- NOTE | 2022-03-04 17:40 | PC.NURSE ---
report received from overnight RN, pt no c/o pain, medical billing service per JUL. Contacted by infectious disease about triple lumen that has been in for 14 days, contacted MD and explained concerns by ID and explained how pt is a hard stick. New orders for triple lumen removal, ICU nurse to remove triple lumen. Pt currently without access. pt is medically cleared. Contact precautions remain in place. Call hernandez within reach, hourly rounding, bed alarm on, safety precautions taken.
[2022-03-04] MEDS: Atorvastatin Calcium 40 MG TABLET PO (20:11)
[2022-03-04] MEDS: Albuterol/Iprat 2.5/0.5MG 3 ML AMPUL.NEB INHALE (23:04)
[2022-03-05] VITALS: BP 122/57; PULSE 60; RESP 16; TEMP 36.2; O2SAT 98
[2022-03-05] MEDS: Melatonin 3 MG TABLET 6 MG PO (00:16)
[2022-03-05 02:57] VITALS: PULSE 68; O2SAT 95
[2022-03-05 04:00] VITALS: BP 134/59; PULSE 65; RESP 16; TEMP 36.3; O2SAT 93
[2022-03-05 06:00] VITALS: BMI 38.2
[2022-03-05] MEDS: Acetaminophen 325 MG TABLET 650 MG PO (06:09)
[2022-03-05] MEDS: Levothyroxine Sodium 125 MCG TABLET PO ×2 (06:09→10:20)
[2022-03-05] MEDS: Heparin Sodium,Porcine 5,000 UNIT/ML VIAL 5000 UNIT SUBCUT (06:10)
[2022-03-05 07:31] LABS: Anion Gap 17 (12-20); Blood Urea Nitrogen 34 mg/dL (9-16); Calcium 8.9 mg/dL (8.4-10.2); Carbon Dioxide 25 mmol/L (22-29); Chloride 106 mmol/L (96-108); Creatinine Clr Calc Pharmacy 54.1; Estimated Glomerular Filt Rate 43; Glucose Random 99 mg/dL (60-115); Potassium 4.2 mmol/L (3.3-5.1); Sodium 144 mmol/L (135-145)
[2022-03-05 07:54] VITALS: BP 138/80; PULSE 90; RESP 20; TEMP 36.4; O2SAT 98
[2022-03-05 08:44] VITALS: BP 138/80; PULSE 90; O2SAT 98
--- NOTE | 2022-03-05 10:05 | MHC.CM.PN ---
MT RECEIVED CALL FROM [employer] MANAGER SRINIVASA WHO HAS APPROVED PT FOR STAY AT [facility]. PER SRINIVASA, SHE WILL NOTIFY THE CENTER OF THE APPROVAL. MT NOTIFIED PT AND DAUGHTER/HCP SUMANTH.RN AND MD NOTIFIED WELL DP: [facility] BOOKED WITH [facility] FOR 1 PM TRANSPORT
[2022-03-05] MEDS: Furosemide 40 MG TABLET PO (10:20)
[2022-03-05] MEDS: Losartan Potassium 50 MG TABLET PO (10:20)
[2022-03-05] MEDS: Clopidogrel Bisulfate 75 MG TABLET PO (10:20)
[2022-03-05] MEDS: Aspirin Enteric Coated 81 MG TABLET.DR PO (10:20)
[2022-03-05] MEDS: Metoprolol Tartrate 25 MG TABLET PO (10:20)
[2022-03-05 11:09] VITALS: BP 113/72; PULSE 71; RESP 18; TEMP 36.6; O2SAT 98
--- NOTE | 2022-03-05 11:19 | MHC.CLN ---
F/U PT WITH INCREASED NUTRITION RISK R/T NEW PRESSURE INJURY PO INTAKE REMAINS VARIABLE DIET RX: REGULAR-APPROPRIATE PT RECEIVING ENSURE BID TO INCREASE KCALS AND PROMOTE WOUND HEALING SUPP PROVIDES 700KCALS, 40G PROTEIN WITH 100% ACCEPTANCE MONITOR PO INTAKE CLOSELY
[2022-03-05 11:24] LABS: COVID-19 Test Negative (Negative); IDNOW Serial# 55D5AD1C
== END 2022-03-05 15:05 | disposition skilled nursing facility (03) | DRG 870 ==
LOC: HO.ED 16:46 → HO.EDOVER 17:53 → HO.ICU 17:53 → HO.IMC 02-26 19:46
PROVIDERS: Internal Medicine; Internal Medicine Cardiovascular Disease; Internal Medicine Nephrology; Physician Assistant Medical; Registered Nurse Community Health; Admitting Provider Anesthesiology; Emergency Provider Emergency Medicine Emergency Medical Services; Visit Provider Student in an Organized Health Care Education/Training Program
DX: A41.9 Sepsis, unspecified organism (principal); I50.33 Acute on chronic diastolic (congestive) heart failure; J96.21 Acute and chronic respiratory failure with hypoxia; R65.21 Severe sepsis with septic shock; J15.212 Pneumonia due to Methicillin resistant Staphylococcus aureus; J44.0 Chronic obstructive pulmonary disease with (acute) lower respiratory infection; N39.0 Urinary tract infection, site not specified; E44.1 Mild protein-calorie malnutrition; J91.8 Pleural effusion in other conditions classified elsewhere; I48.20 Chronic atrial fibrillation, unspecified; G72.81 Critical illness myopathy; N17.9 Acute kidney failure, unspecified; E03.9 Hypothyroidism, unspecified; E87.5 Hyperkalemia; G62.9 Polyneuropathy, unspecified; N18.31 Chronic kidney disease, stage 3a; N26.1 Atrophy of kidney (terminal); B96.20 Unspecified Escherichia coli [E. coli] as the cause of diseases classified elsewhere; D63.1 Anemia in chronic kidney disease; I50.810 Right heart failure, unspecified; G30.9 Alzheimer's disease, unspecified; I48.0 Paroxysmal atrial fibrillation; E88.09 Other disorders of plasma-protein metabolism, not elsewhere classified; F02.80 Dementia in other diseases classified elsewhere, unspecified severity, without behavioral disturbance, psychotic disturbance, mood disturbance, and anxiety; E66.9 Obesity, unspecified; Z20.822 Contact with and (suspected) exposure to COVID-19; Z22.1 Carrier of other intestinal infectious diseases; Z68.38 Body mass index [BMI] 38.0-38.9, adult; Z95.818 Presence of other cardiac implants and grafts; Z99.81 Dependence on supplemental oxygen; Z87.891 Personal history of nicotine dependence; Z79.02 Long term (current) use of antithrombotics/antiplatelets; Z79.51 Long term (current) use of inhaled steroids; Z79.82 Long term (current) use of aspirin; Z79.890 Hormone replacement therapy; Z79.899 Other long term (current) drug therapy
CPT/HCPCS: 36415; 70450; 71045; 71250; 74176; 78580; 80048; 80053; 80202; 80307; 81001; 81003; 82040; 82043; 82077; 82550; 82565; 82784; 82803; 82947; 83036; 83605; 83690; 83735; 83880; 83883; 84100; 84145; 84156; 84165; 84300; 84443; 84484; 85007; 85025; 85027; 85379; 85610; 85652; 85730; 86021; 86038; 86039; 86140; 86160; 86334; 87040; 87070; 87077; 87086; 87088; 87186; 87205; 87324; 87493; 87502; 87635; 89190; 92610; 93005; 93306; 93970; 94002; 94003; 94640; 94799; 97163; 97167; 97530; 99285; A9540; C1758; J0456; J0696; J1205; J1940; J1956; J2250; J2543; J2930; J3010; J3370; P9047